=== PATIENT | male | born 1960 | race Caucasian/White ===

== ENCOUNTER 2019-03-25 00:26 | Day surgery (SDC) | payer BC, SELFPAY ==
[2019-03-23 14:37] VITALS: BMI 32.0
--- NOTE | 2019-03-24 17:24 | WPDANESEPP ---
Anes - Eval Pre Procedure Procedure: Operation Date: 03/25/19 08:00 Proposed Procedures p Screening Colonoscopy - Derek Puente MD Date/Time: 03/24/19 17:24 Pre Op Diagnosis: Neoplasm Screening Patient Data Age: 59 Gender: M Height: 1.83 m Weight: 107 kg Allergies Allergy/AdvReac Type Severity Reaction Status Date / Time oxycodone AdvReac Unknown Nausea and Verified 03/23/19 14:32 Vomiting Home Medications Medication Instructions Recorded Confirmed Type latanoprost 0.005 % eye drops 1 drop EACH EYE QPM 01/19/19 03/23/19 History testosterone 1.62 % (20.25 mg/1.25 1 packet TRANSDERM HS 01/19/19 03/23/19 History gram) transdermal gel packet pantoprazole 20 mg tablet,delayed 20 mg PO QAM #90 tablet 02/12/19 03/23/19 Rx release fluticasone propion-salmeterol 1 puff INHALATION BID 03/23/19 03/23/19 History [Wixela Inhub] Patient hx anesthesia problems: none Family hx anesthesia problems: none PMFSH Past Medical History Medical History (Updated 03/24/19 @ 17:25 by Lucy Singh CRNA) Malignant neoplasm of urinary bladder Obesity (BMI 30-39.9) Unspecified asthma, uncomplicated Vitamin D deficiency, unspecified Social History Social History Smoking status: Never smoker Second hand tobacco smoke exposure: No Alcohol intake: current Exam Day of Procedure 03/24/19 17:24
--- NOTE | 2019-03-25 07:08 | P.PNAN_ITS ---
Anes - Eval Final PreProcedure Day of Procedure 03/25/19 07:08 Patient weight: obese Heart: regular rate and rhythm Lungs: clear to auscultation Airway: Mallampati scale class II Neurological: alert and oriented Last oral intake: >/= 8 hours ASA classification: II Emergent: no Anesthetic plan: proceed Anesthesia type and monitoring: general GIVS and standard monitoring Informed Consent: The patient's anesthetic plan and its attendant risks and be nefits were discussed with the patient/family/POA. Questions were solicited and answers provided to the satisfaction of the patient/family/POA.
[2019-03-25] MEDS: LACTATED RINGERS 1,000 ML 150 ML IV CONT (07:26)
[2019-03-25 07:29] VITALS: BP 135/72; PULSE 47; RESP 18; TEMP 36.3; O2SAT 96; BMI 31.8
--- NOTE | 2019-03-25 08:06 | PM.HPGS ---
History of Present Illness History of Present Illness Consent: Risks, benefits, and alternatives have been discussed and questions answered. Patient agrees to proceed with procedure. Chief complaint: Neoplasm Screening Narrative: Jason Douglas is a 59 year old male here for screening colonoscopy, last one 10 years ago. Review of Systems Constitutional: Constitutional: Denies headache(s) and Denies weakness Eyes: Eyes: Denies blurry vision ENT: Reports Normal hearing present, Denies headache(s) and Denies neck pain Cardiovascular: Cardiovascular: Denies chest pain and Denies dyspnea Respiratory: Respiratory: Denies dyspnea Gastrointestinal: Gastrointestinal: Reports no additional gastrointestinal complaints Genitourinary: Genitourinary: Denies dysuria Musculoskeletal: Musculoskeletal: Denies neck pain Integumentary/Breasts: Skin/Breast: Denies dry skin Neurologic: Reports Normal hearing present, Denies headache(s) and Denies weakness Psychiatric: Psychiatric: Denies anxiety Endocrine: Endocrine: Denies change in body appearance Hematologic/Lymphatic: Hematologic/Lymphatic: Denies easy bleeding Allergic/Immunologic: Allergic/Immunologic: Denies urticaria PMFSH Past Medical History Medical History (Updated 03/25/19 @ 08:07 by Derek Puente MD) Colon cancer screening Malignant neoplasm of urinary bladder Obesity (BMI 30-39.9) Unspecified asthma, uncomplicated Vitamin D deficiency, unspecified Social History Social History Smoking status: Never smoker Second hand tobacco smoke exposure: No Alcohol intake: current Meds Home Medications and Allergies Home Medications Medication Instructions Recorded Confirmed Type latanoprost 0.005 % eye drops 1 drop EACH EYE QPM 01/19/19 03/23/19 History testosterone 1.62 % (20.25 mg/1.25 1 packet TRANSDERM HS 01/19/19 03/23/19 History gram) transdermal gel packet pantoprazole 20 mg tablet,delayed 20 mg PO QAM #90 tablet 02/12/19 03/23/19 Rx release fluticasone propion-salmeterol 1 puff INHALATION BID 03/23/19 03/23/19 History [Wixela Inhub] Allergies Allergy/AdvReac Type Severity Reaction Status Date / Time oxycodone AdvReac Unknown Nausea and Verified 03/25/19 07:27 Vomiting Vital Signs Vital Signs - 24 hr 03/25/19 07:29 Temperature 97.3 F L Pulse Rate 47 L Respiratory Rate 18 Blood Pressure 135/72 Pulse Oximetry 96 Exam Const: General: comfortable and no acute distress HENMT: General nose exam: Normal nares present Eyes: General: appearance normal, both eyes and all related structures Neck: Neck: no JVD Resp: Auscultation: clear to auscultation bilaterally Cardio: Rate: regular rate Rhythm: regular rhythm GI: Inspection: non-distended GI Palp: Yes Soft to palpation Skin: General skin exam: normal color Neuro: General: gait normal Speech: normal speech Extrem: General: normal to inspection Psych: Mental Status: mental status grossly normal Assessment and Plan Assessment and plan (1) Colon cancer screening: Code(s): Z12.11 - Encounter for screening for malignant neoplasm of colon Status: Acute Assessment and Plan: will proceed with colonoscopy (2) Unspecified asthma, uncomplicated: Code(s): J45.909 - Unspecified asthma, uncomplicated Status: Acute
[2019-03-25 08:37] VITALS: BP 93/63; PULSE 82; RESP 20; O2SAT 92
[2019-03-25 08:47] VITALS: BP 95/66; PULSE 71; RESP 20; O2SAT 93
[2019-03-25 08:52] VITALS: BP 110/72; PULSE 78; RESP 20; O2SAT 95
[2019-03-25 09:02] VITALS: BP 106/68; PULSE 77; RESP 20; O2SAT 95
== END 2019-03-25 09:07 | disposition home or self-care (01) ==
PROVIDERS: PCP Internal Medicine; Visit Provider Internal Medicine Gastroenterology
PROC: 0DJD8ZZ Inspection of Lower Intestinal Tract, Via Natural or Artificial Opening Endoscopic (ICD-10-PCS; CPT 45378; principal; 2019-03-25 08:00)
DX: Z12.11 Encounter for screening for malignant neoplasm of colon (principal); D12.2 Benign neoplasm of ascending colon; D12.5 Benign neoplasm of sigmoid colon; K63.5 Polyp of colon; K57.30 Diverticulosis of large intestine without perforation or abscess without bleeding; K64.8 Other hemorrhoids; E55.9 Vitamin D deficiency, unspecified; J45.909 Unspecified asthma, uncomplicated; Z85.51 Personal history of malignant neoplasm of bladder; E66.9 Obesity, unspecified; Z68.31 Body mass index [BMI] 31.0-31.9, adult
CPT/HCPCS: 45385; 88305; J2704; J7120

== ENCOUNTER 2020-03-26 09:30 | Emergency (ER) | payer BC, SELFPAY ==
--- NOTE | ~2020-03-26 | XR_ITS ---
XR wrist RT min 3V DATE: 03/26/2020 09:38 INDICATION: Lateral right wrist pain following a fall and injury last evening TECHNIQUE: 4 views COMPARISON: None FINDINGS: There is a nondisplaced linear intra-articular fracture of the distal radius. No dislocation. Mild osteoarthritic change at the first carpometacarpal joint. IMPRESSION: Nondisplaced linear intra-articular fracture distal radius Reviewed, dictated and finalized at location A. [employer]
--- NOTE | 2020-03-26 09:40 | ED.UPPEXIN ---
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 Patient states he slipped yesterday and has mild , radial wrist pain that is worse with motion, better at rest located the distal radius. No numbness, significant weakness, bleeding, deformity but there is mild edema. Patient advised regardless of x-ray report will need follow-up and splinting, and he comments that Lisa is his orthopedist and prefers durable/reusable commercial splints. Related Data Home Medications Medication Instructions Recorded Confirmed latanoprost 0.005 % eye drops 1 drop EACH EYE QPM 01/19/19 03/26/20 Allergies Allergy/AdvReac Type Severity Reaction Status Date / Time oxycodone AdvReac Unknown Nausea and Verified 03/26/20 09:39 Vomiting Review of Systems Review of Systems: Narrative: The patient has been informed that they may have pre-hypertension or Hypertension based on a BP reading in the department. I recommend that the patient call the primary care provider listed on their discharge instructions or a physician of their choice this week to arrange follow up for further evaluation of possible pre-hypertension or Hypertension General/Constitutional: Nofever Eyes: N0: Redness,discharge Ears/Nose/Throat: No: Epistaxis Gastrointestinal: No Vomiting Skin: No Lumps, eruption Neurologic: No Focal Weakness, Hematologic: Denies: Petechiae/Purpura Psychiatric: No: Suicida ideationl All Other Systems: Reviewed and Negative [facility] Past Medical History Medical History Colon cancer screening Malignant neoplasm of urinary bladder Obesity (BMI 30-39.9) Unspecified asthma, uncomplicated Vitamin D deficiency, unspecified Family History Family History Father Hypertension Family history of osteoarthritis Grandparent Family history of osteoarthritis Family history of kidney disease Sibling Family history of malignant neoplasm of brain Mother Family history of heart disease in male family member before age 55 Patient's mother is Social History Social History Smoking status: Never smoker Second hand tobacco smoke exposure: No Alcohol intake: current Exam Narrative: Exam Narrative: General Appearance: Well appearing, , Conjunctiva clear Mouth/Throat:Normal lips, Supple Respiratory: Airway patent, No respiratory distress MS-wrist: Normal strength (mostly intact, limited flexion/extension by pain), Tenderness (radially with mild decreased ROM), Scant swelling (radially), Other (no anterior drawer, no collateral laxity, Skin: Mild snuffbox tenderness-proximally, skin warm, Dry, Normal color Neurological: A&O x3, Normal affect Course Course Emergency Course: Films visualized, interpreted by radiologist, agree, ABnormal see report Vital Signs Vital signs: Vital Signs Temperature 98.1 F 03/26/20 09:44 Pulse Rate 85 03/26/20 09:44 Respiratory Rate 16 03/26/20 09:44 Blood Pressure 143/100 H 03/26/20 09:44 Pulse Oximetry 99 03/26/20 09:44 Temperature 98.1 F 03/26/20 09:44 Pulse Rate 85 03/26/20 09:44 Respiratory Rate 16 03/26/20 09:44 Blood Pressure 143/100 H 03/26/20 09:44 Pulse Oximetry 99 03/26/20 09:44 Discharge Plan Discharge Clinical Impression: Distal radius fracture, right Qualifiers: Encounter type: initial encounter Fracture type: closed Fracture morphology: other intra-articular Qualified Code(s): S52.571A - Other intraarticular fracture of lower end of right radius, initial encounter for closed fracture Patient Disposition: Home, Self
[2020-03-26 09:44] VITALS: BP 143/100; PULSE 85; RESP 16; TEMP 36.7; O2SAT 99
== END 2020-03-26 10:10 | disposition home or self-care (01) ==
PROVIDERS: Emergency Provider Emergency Medicine; PCP Internal Medicine
DX: M25.531 Pain in right wrist (principal); S52.571A Other intraarticular fracture of lower end of right radius, initial encounter for closed fracture; W00.0XXA Fall on same level due to ice and snow, initial encounter; Z85.51 Personal history of malignant neoplasm of bladder; J45.909 Unspecified asthma, uncomplicated; E66.9 Obesity, unspecified; Z68.33 Body mass index [BMI] 33.0-33.9, adult
CPT/HCPCS: 73110; 99213; A4565; G0463

== ENCOUNTER 2020-07-22 16:08 | Outpatient (CLI) | payer BC, SELFPAY ==
--- NOTE | ~2020-07-22 | XR_ITS ---
EXAMINATION: XR lumbar spine 2-3V DATE: 07/22/2020 16:26 INDICATION: Dorsalgia. TECHNIQUE: Anteroposterior and lateral views of the lumbar spine, and cone-down lateral view of the l umbosacral junction were obtained. COMPARISON: CT abdomen and pelvis dated 08/21/2017 FINDINGS: 8 degrees dextrocurvature between T11 and L4. L5 spondylolysis with bilateral pars defects better naveed reciated on prior CT and 12 mm anterolisthesis on S1. 2 mm retrolisthesis L2 on L3 and L3 on L4. Vert ebral body heights are normal. Severe disc height loss at L5-S1, moderate disc height loss at L4-L5 a nd mild disc height loss at L1-L2 and L2-L3. Moderate bilateral facet osteoarthritis at L4-L5 and L5- S1. Mild to moderate bilateral sacral iliac osteoarthritis with increased sclerosis resulting from pa rtial bridging anterior osteophytes but appreciated on prior CT. IMPRESSION: 1. L5 spondylolysis with grade 2 anterolisthesis on S1 and severe L5-S1 degenerative disc disease. 2. Mild to moderate spondylosis in the more cephalad lumbar spine. Reviewed, dictated and finalized at location A. IMPRESSION: 1. L5 spondylolysis with grade 2 anterolisthesis on S1 and severe L5-S1 degener ative disc disease. 2. Mild to moderate spondylosis in the more cephalad lumbar spine.
== END 2020-07-22 16:09 | disposition home or self-care (01) ==
PROVIDERS: PCP Internal Medicine; Visit Provider Internal Medicine
DX: M47.896 Other spondylosis, lumbar region (principal); M51.37 Other intervertebral disc degeneration, lumbosacral region
CPT/HCPCS: 72100

== ENCOUNTER 2020-08-01 11:35 | Emergency (ER) | payer BC, SELFPAY ==
[2020-08-01 11:41] VITALS: BP 179/99; PULSE 103; RESP 16; TEMP 36.2; O2SAT 99
--- NOTE | 2020-08-01 12:09 | ED.EPISTAXIS ---
HPI - Epistaxis General Chief complaint: Epistaxis Stated complaint: nose bleed Time Seen by Provider: 08/01/20 11:40 Source: patient and RN notes reviewed Mode of arrival: ambulatory Limitations: no limitations History of Present Illness HPI Narrative: Patient presents today complaining of an epistaxis episode out of from the right nostril since 1115 this morning. States he has applied pressure without hemostasis. States he does not take blood thinners, but has been taking ibuprofen consistently for the past week. States he was having a meeting at work when his nose started bleeding. Denies history of high blood pressure. Related Data Home Medications Medication Instructions Recorded Confirmed latanoprost 0.005 % eye drops 1 drop EACH EYE QPM 01/19/19 08/01/20 Allergies Allergy/AdvReac Type Severity Reaction Status Date / Time oxycodone AdvReac Unknown Nausea and Verified 08/01/20 11:38 Vomiting Review of Systems Review of Systems: Narrative: CONSTITUTIONAL: Denies body aches, fever, chills, or sweats. EYES: Denies visual changes, redness, or discharge. ENT: Denies rhinorrhea, congestion, sore throat, or otalgia.+ Epistaxis CARDIOVASCULAR: Denies chest pain, palpitations, or edema. RESPIRATORY: Denies cough or dyspnea. GASTROINTESTINAL: Denies abdominal pain, nausea, vomiting, or diarrhea. GENITOURINARY: Denies dysuria or hematuria. SKIN: Denies rash, itching, or wounds. MUSCULOSKELETAL: Denies back pain, joint pain, or myalgia. NEUROLOGIC: Denies headache, numbness, tingling, or weakness. PSYCH: Denies depression or anxiety. [facility], [facility] Past Medical History Medical History Colon cancer screening Malignant neoplasm of urinary bladder Obesity (BMI 30-39.9) Unspecified asthma, uncomplicated Vitamin D deficiency, unspecified Family History Family History Father Hypertension Family history of osteoarthritis Grandparent Family history of osteoarthritis Family history of kidney disease Sibling Family history of malignant neoplasm of brain Mother Family history of heart disease in male family member before age 55 Patient's mother is Social History Social History Smoking status: Never smoker Second hand tobacco smoke exposure: No Alcohol intake: current Comments At time of signature, I have reviewed and agree with nursing past medical, surgical, social and family history unless otherwise noted. Please see nursing chart for further information. There is no relevant family history pertinent to the presenting complaint Exam Narrative: Exam Narrative: GENERAL: Well-appearing, well-nourished, and in no acute distress. HEAD: Normocephalic, atraumatic. EYES: EOMI. No redness or drainage. Conjunctivae normal. ENT: Mucous membranes pink and moist. Left nare clear. Right nare with some blood, cleaned out gently with Qtip, but is currently not bleeding after clamp was applied for 20 minutes. Bleed appears posterior. NECK: Normal AROM. Supple. No lymphadenopathy. CHEST: No respiratory distress. EXTREMITIES: Normal range of motion. No edema. SKIN: Warm, dry, no rash. Capillary refill normal. Normal skin turgor. NEURO: No focal deficits. Alert and oriented x3. Gait steady. PSYCH: Normal affect. No signs of depression or anxiety. Course Course Emergency Course: 1203- Clamp removed and hemostasis acheived. Will leave off for 10 minutes and reevaluate. 1215- Small drops of blood restarted. 3 sprays of neosynephrine applied and clamp reapplied. 1230- Clamp removed. Will recheck in 15 mins. 1245- Hemostasis achieved. Anticipatory guidance was given. We will send patient home with nose clamp in case oozing begins again. Vital Signs Vital signs: Vital Signs Temperature 97.2 F L 08/01/20 1
[2020-08-01 12:34] VITALS: BP 154/93
== END 2020-08-01 13:02 | disposition home or self-care (01) ==
PROVIDERS: Emergency Provider Nurse Practitioner; PCP Internal Medicine
DX: R04.0 Epistaxis (principal); J45.909 Unspecified asthma, uncomplicated; Z85.51 Personal history of malignant neoplasm of bladder
CPT/HCPCS: 99212; G0463

== ENCOUNTER 2020-08-05 22:18 | Emergency (ER) | payer BC, SELFPAY ==
[2020-08-05 22:19] VITALS: BP 164/92; PULSE 107; RESP 18; TEMP 36.1; O2SAT 97
--- NOTE | 2020-08-05 22:56 | ED.EPISTAXIS ---
HPI - Epistaxis General Chief complaint: Epistaxis Stated complaint: epitaxis Time Seen by Provider: 08/05/20 22:55 History of Present Illness HPI Narrative: Nose bleed for the past 20-30 minutes. Only recent nose bleed last week. stopped spontaneously. He takes a daily aspirin. No trauma. No weakness, dizziness, SOB. Related Data Home Medications Medication Instructions Recorded Confirmed latanoprost 0.005 % eye drops 1 drop EACH EYE QPM 01/19/19 08/11/20 acetaminophen [Acetaminophen Extra 100 mg PO Q6H PRN 08/11/20 08/11/20 Strength] Allergies Allergy/AdvReac Type Severity Reaction Status Date / Time oxycodone AdvReac Unknown Nausea and Verified 08/08/20 14:09 Vomiting Review of Systems Review of Systems: All systems reviewed & are unremarkable except as noted in HPI and below PMFSH Past Medical History Medical History Colon cancer screening Malignant neoplasm of urinary bladder Obesity (BMI 30-39.9) Unspecified asthma, uncomplicated Vitamin D deficiency, unspecified Family History Family History Father Hypertension Family history of osteoarthritis Grandparent Family history of osteoarthritis Family history of kidney disease Sibling Family history of malignant neoplasm of brain Mother Family history of heart disease in male family member before age 55 Patient's mother is Social History Social History Smoking status: Never smoker Second hand tobacco smoke exposure: No Alcohol intake: current Drinks per week: 3 Substance use: never Living arrangements: with family Exam Const: General: healthy appearing, no acute distress and alert Orientation/consciousness: patient oriented x3 HENMT: Head: normal to inspection General nose exam: Epistaxis present on the right active bleeding and source not visualized Neck: Neck: normal visual inspection Resp: Effort & Inspection: normal respiratory effort Auscultation: clear to auscultation bilaterally, no rales, no rhonchi and no wheezes Cardio: Jugular venous distension: no JVD Rate: regular rate Rhythm: regular rhythm Heart sounds: no murmurs Skin: General skin exam: normal color and no pallor Neuro: General: patient oriented x3 and moves all extremities Speech: normal speech Psych: Appearance: well kempt Affect: normal affect Course Vital Signs Vital signs: Vital Signs Temperature 36.1 C L 08/05/20 22:19 Pulse Rate 107 H 08/05/20 22:19 Respiratory Rate 18 08/05/20 22:19 Blood Pressure 164/92 H 08/05/20 22:19 Pulse Oximetry 97 08/05/20 22:19 Temperature 36.1 C L 08/05/20 22:19 Pulse Rate 91 08/06/20 01:15 Respiratory Rate 16 08/06/20 01:15 Blood Pressure 150/89 H 08/06/20 01:15 Pulse Oximetry 94 08/06/20 01:15 Procedures Epistaxis Control right: Nose Prepped With: oxymetazoline Direct Inspection: unable to visualize Clots Removed by: blowing nose and manually Device Inserted: hemostatic balloon Patient Tolerated Procedure: well MDM - Epistaxis Differential Diagnosis Differential diagnosis: Likely anterior epistaxis and posterior epistaxis Medical Records Attestation: I reviewed the patient's medical records. Discharge Plan Discharge Clinical Impression: Acute anterior epistaxis Patient Disposition: Home, Self-Care Condition: Stable Instructions: Nosebleed (ED) Prescriptions: No Action latanoprost 0.005 % drops 1 drop EACH EYE QPM RF: 0 testosterone [AndroGel] 1.62 % (20.25 mg/1.25 gram) gel in packet 1 packet TRANSDERM HS Qty: 225 RF: 0 acetaminophen [Acetaminophen Extra Strength] 500 mg Tablet 100 mg PO Q6H PRN (Reason: Pain) RF: 0 pantoprazole 20 mg tablet,delayed release (DR/EC) 20 mg PO QAM Qty: 90 RF: 1 flu
--- NOTE | 2020-08-06 00:15 | PC.NURSE ---
Pt continues to bleed from right nare despite nose clamp and nasal packing placed by EDP. Pt states he can feel the blood running down his throat. EDP at bedside to place Rhino Rocket in right nare at this time.
[2020-08-06 00:16] VITALS: BP 159/98; PULSE 102; RESP 18; O2SAT 96
[2020-08-06 01:15] VITALS: BP 150/89; PULSE 91; RESP 16; O2SAT 94
== END 2020-08-06 01:15 | disposition home or self-care (01) ==
PROVIDERS: Emergency Provider Emergency Medicine; PCP Internal Medicine
DX: R04.0 Epistaxis (principal); J45.909 Unspecified asthma, uncomplicated; E55.9 Vitamin D deficiency, unspecified; E66.9 Obesity, unspecified; Z85.51 Personal history of malignant neoplasm of bladder; Z79.82 Long term (current) use of aspirin
CPT/HCPCS: 30901; 99282; A9270

== ENCOUNTER 2020-08-12 00:44 | Day surgery (SDC) | payer BC, SELFPAY ==
--- NOTE | 2020-08-11 09:00 | PM.IMHP ---
H&P: HPI History of Present Illness Date/Time: 08/11/20 09:00 Patient presents for planned surgical procedures. History of recurrent epistaxis on the right side unable to stop bleeding in clinic. Bleeding is likely from mid septal region but the septal deviation and inferior turbinate hypertrophy makes direct or endoscopic visualization exceedingly difficult. Patient reports no changes in history or medical history. Chief Complaint: Right-sided epistaxis recurrent and severe Review of Systems Constitutional: Constitutional: Denies fatigue, Denies fever(s) and Denies lethargy Eyes: Eyes: Denies blurry vision and Denies change in vision ENT: Reports as per HPI Cardiovascular: Cardiovascular: Denies chest pain Respiratory: Respiratory: Denies cough Endocrine: Endocrine: Denies fatigue Hematologic/Lymphatic: Hematologic/Lymphatic: Denies easy bleeding, Denies easy bruising and Denies lymphadenopathy Allergic/Immunologic: Allergic/Immunologic: Denies seasonal rhinorrhea PMFSH Past Medical History Medical History Colon cancer screening Malignant neoplasm of urinary bladder Obesity (BMI 30-39.9) Unspecified asthma, uncomplicated Vitamin D deficiency, unspecified Family History Family History Father Hypertension Family history of osteoarthritis Grandparent Family history of osteoarthritis Family history of kidney disease Sibling Family history of malignant neoplasm of brain Mother Family history of heart disease in male family member before age 55 Patient's mother is Social History Social History Second hand tobacco smoke exposure: No Alcohol intake: current Meds Home Medications and Allergies Home Medications Medication Instructions Recorded Confirmed Type latanoprost 0.005 % eye drops 1 drop EACH EYE QPM 01/19/19 08/08/20 History testosterone 1.62 % (20.25 mg/1.25 1 packet TRANSDERM HS #225 gm 01/19/20 08/08/20 Rx gram) transdermal gel packet pantoprazole 20 mg tablet,delayed 20 mg PO QAM #90 tablet 02/15/20 08/08/20 Rx release fluticasone 100 mcg-salmeterol 50 1 inh INHALATION BID #60 each 03/15/20 08/01/20 Rx mcg/dose blistr powdr for inhalation tramadol 50 mg PO BID PRN #15 tablet 03/26/20 08/01/20 Rx cyclobenzaprine 10 mg tablet 10 mg PO .HS PRN #30 tablet 08/02/20 08/08/20 Rx Allergies Allergy/AdvReac Type Severity Reaction Status Date / Time oxycodone AdvReac Unknown Nausea and Verified 08/08/20 14:09 Vomiting Exam Const: General: cooperative, healthy appearing, comfortable, well developed and alert HENMT: Head: normal to inspection, normocephalic and atraumatic Ears: hearing grossly normal bilaterally, external ears normal, TM's normal bilaterally and EAC's normal General nose exam: Normal external nose present, Normal nares present, nasal polyps, mucous membranes and turbinates abnormal, abnormal septum and Other nasal findings present ( left normal right packed) Face and sinus: normal facial exam Mouth: Yes Normal oral and palatal mucosa present, Yes lip normal, Yes tongue normal, Yes oropharynx normal and Yes moist mucous membranes Teeth and gingiva: dentition normal and gingiva normal Throat: posterior oropharynx normal, tonsils normal and uvula midline Eyes: General: appearance normal, both eyes and all related structures Periorbital: periorbital findings normal Eyelids: eyelids normal Conjunctivae: conjunctivae normal Sclera: sclerae normal Neck: Neck: normal visual inspection, full ROM and no lymphadenopathy Thyroid: thyroid normal Lymphatic: no lymphadenopathy noted Resp: Effort & Inspection: normal respiratory effort and able to speak in complete sentences Cardio: Jugular venous distension: no JVD Neuro: Cranial nerves: Yes CN's II-XII intact edwin
[2020-08-11 12:30] VITALS: BMI 33.5
[2020-08-12] VITALS (14 sets, daily range): BP systolic 132–163; BP diastolic 84–98; PULSE 71–96; RESP 12–20; TEMP 36.6–36.8; O2SAT 93–100
--- NOTE | 2020-08-12 07:04 | WPDHPUPDATE1 ---
History and Physical Update Update Date/Time: 08/12/20 07:04 History and Physical has been reviewed, including an updated exam of the patient. There are NO changes in the patient's condition. Risks, benefits, and alternatives have been discussed and questions answered. Patient agrees to proceed with procedure.
--- NOTE | 2020-08-12 11:42 | WPDANESEPPF ---
Anes - Initial Pre Proc Eval Procedure: Operation Date: 08/12/20 14:00 Proposed Procedures p Right Endoscopic Maxillary Antrostomy - Erick Sethi MD s Right Nasal Cautery Of Nose - Erick Sethi MD Date/Time: 08/12/20 11:42 Surgeon: Erick Sethi MD Pre Op Diagnosis: epistaxis Patient Data Age: 60 Gender: M Height: 1.83 m Weight: 108.2 kg Last Vital Signs Temp 36.6 C 08/12/20 11:10 Pulse 96 08/12/20 11:10 Resp 20 08/12/20 11:10 BP 163/92 H 08/12/20 11:10 Pulse Ox 97 08/12/20 11:10 Allergies Allergy/AdvReac Type Severity Reaction Status Date / Time oxycodone AdvReac Mild Nausea and Verified 08/12/20 11:11 Vomiting Home Medications Medication Instructions Recorded Confirmed Type latanoprost 0.005 % eye drops 1 drop EACH EYE QPM 01/19/19 08/12/20 History testosterone 1.62 % (20.25 mg/1.25 1 packet TRANSDERM HS #225 gm 01/19/20 08/12/20 Rx gram) transdermal gel packet pantoprazole 20 mg tablet,delayed 20 mg PO QAM #90 tablet 02/15/20 08/12/20 Rx release fluticasone 100 mcg-salmeterol 50 1 inh INHALATION BID #60 each 03/15/20 08/12/20 Rx mcg/dose blistr powdr for inhalation cyclobenzaprine 10 mg tablet 10 mg PO .HS PRN #30 tablet 08/02/20 08/12/20 Rx acetaminophen [Acetaminophen Extra 100 mg PO Q6H PRN 08/11/20 08/12/20 History Strength] Patient hx anesthesia problems: none Family hx anesthesia problems: none PMFSH Past Medical History Medical History Colon cancer screening Gastro-esophageal reflux disease without esophagitis Malignant neoplasm of urinary bladder Obesity (BMI 30-39.9) Unspecified asthma, uncomplicated Vitamin D deficiency, unspecified Family History Family History Father Hypertension Family history of osteoarthritis Grandparent Family history of osteoarthritis Family history of kidney disease Sibling Family history of malignant neoplasm of brain Mother Family history of heart disease in male family member before age 55 Patient's mother is Social History Social History Smoking status: Never smoker Second hand tobacco smoke exposure: No Alcohol intake: current Drinks per week: 3 Substance use: never Living arrangements: with family Anes - Evjulieta Final PreProcedure Day of Procedure 08/12/20 11:42 Patient weight: obese Heart: regular rate and rhythm Lungs: clear to auscultation Airway: Mallampati scale class II Neurological: alert and oriented Last oral intake: >/= 8 hours ASA classification: III Emergent: no Anesthetic plan: proceed Anesthesia type and monitoring: general ETT and standard monitoring Informed Consent: The patient's anesthetic plan and its attendant risks and benefits were discussed with the patient/family/POA. Questions were solicited and answers provided to the satisfaction of the patient/family/POA.
[2020-08-12] MEDS: LACTATED RINGERS 1,000 ML 30 ML IV CONT ×3 (11:55→15:02)
[2020-08-12] MEDS: ceFAZolin 2 GM/D5W 50 ML 2 GM/50 ML BAG IVPB (12:05)
[2020-08-12] MEDS: OXYMETAZOLINE HCL 0.05% NAS 15 ML BTL (*BKC) 1 SPRAY NASAL (12:20)
--- NOTE | 2020-08-12 14:15 | W.PM.PROC2 ---
Procedure Note - Detailed Date of Procedure 08/12/20 Pre-op Diagnosis epistaxis Nasal polyps Post-op Diagnosis same Procedure Performed 1. Biopsy of right-sided nasal mass 2. Right-sided endoscopic maxillary antrostomy 3. Right-sided endoscopic ligation of sphenopalatine artery Surgeon Erick Sethi MD Anesthesia general Indications epistaxis right nasal mass Findings right polypoid mass involving the middle turbinate versus polyps, right septal deviation bilateral inferior turbinate hypertrophy epistaxis Description of Procedure patient was correctly identified and consent was verified in the preoperative holding area. The patient was then brought to the operating room and a time-out was performed. General anesthesia was induced and endotracheal tube was secured the patient's airway and taped to the left lower lip. Afrin-soaked pledgets were not placed. The patient was then prepped and draped for the aforementioned procedures. The packing was removed from the nasal passage. It was a Merocel. Under endoscopic guidance the bilateral nasal passages reviewed there is inferior turbinate hypertrophy right-sided septal deviation and blood emanating from the right nasal passage from what appeared to be a multiple regions which could represent previous trauma. Of note there was a right-sided nasal mass involving the middle turbinate 1st polypoid changes on the middle turbinate. This was biopsied and sent for pathologic analysis. Double ball tip probe was then utilized to fracture the uncinate and backbiter was utilized to complete the uncinectomy on right. Straight through cut was utilized to access the posterior lamella back wall of the maxillary sinus. Suction Bovie was then utilized to dissect until as sphenopalatine artery was located this was cauterized at a setting of 20 and was completely transected and bleeding. Given the previous trauma to the septum and inferior turbinate the decision made to place Brandon splints the right had the airway the left did not these were placed bilaterally and sutured anteriorly using a 3 0 nylon suture. Hemostasis was adequate. Care the patient was turned over to Anesthesiology. Blood loss 10 cc. There were no complications. Implants Brandon splints Estimated Blood Loss 10 Drains No Packing No Pathology yes Complications No immediate complications Condition stable Disposition PACU
[2020-08-12] MEDS: fentaNYL CITRATE INJ (*CRX) 100 MCG/2 ML VIAL 25 MCG IV PUSH ×8 (14:18→15:10)
--- NOTE | 2020-08-12 16:20 | SUR.PHASEII ---
Dr. Sethi notified of patient allergy to oxycodone. states that he will electronically submit different prescription from home.
== END 2020-08-12 16:36 | disposition home or self-care (01) ==
PROVIDERS: PCP Internal Medicine; Visit Provider Otolaryngology
PROC: (CPT 61782; principal; 2020-08-12 14:00)
PROC: (CPT 61782; 2020-08-12 14:00)
DX: R04.0 Epistaxis (principal); J33.8 Other polyp of sinus; J34.3 Hypertrophy of nasal turbinates; K21.9 Gastro-esophageal reflux disease without esophagitis; E55.9 Vitamin D deficiency, unspecified; Z85.51 Personal history of malignant neoplasm of bladder; J45.909 Unspecified asthma, uncomplicated; E66.9 Obesity, unspecified; Z68.32 Body mass index [BMI] 32.0-32.9, adult
CPT/HCPCS: 61782; 31256; 31241; 88304; 88305; A9270; J0330; J0690; J1100; J2250; J2405; J2704; J3010; J7120

== ENCOUNTER 2020-09-11 10:36 | Outpatient (CLI) | payer BC, SELFPAY ==
--- NOTE | ~2020-09-11 | MR_ITS ---
EXAMINATION: MR lumbar spine wo con DATE: 09/11/2020 11:32 INDICATION: Dorsalgia, unspecified. TECHNIQUE: Magnetic resonance imaging (MRI) of the lumbar spine was performed without intravenous con trast. Sequences included sagittal T2-weighted FSE, sagittal T2-weighted FS FSE, sagittal T1-weighted FSE, and axial T2-weighted FSE. COMPARISON: Lumbar spine radiograph 07/22/2020 FINDINGS: There is 3 degrees dextrocurvature of lumbar spine. There are chronic bilateral L5 pars def ects. There is 13 mm anterolisthesis of L5 on S1. There is chronic 1/5 loss of height of L5 vertebral body posteriorly. There are chronic compression fractures of T11, T12, L1, L2, and L3. There is mild ly decreased disc height at L2-L3 and L4-L5 and severely decreased disc height at L5-S1. The followin g disc levels are specifically discussed: L1-L2: The disc is bulging. There is mild bilateral facet joint osteoarthritis. There is mild bilater al neural foraminal stenosis. There is mild central canal stenosis. L2-L3: The disc is bulging and has an annular fissure. There is severe right and moderate left facet joint osteoarthritis. There is mild right and moderate left neural foraminal stenosis. There is mild central canal stenosis. L3-L4: The disc is bulging. There is moderate right and severe left facet joint osteoarthritis. There is moderate bilateral neural foraminal stenosis. There is mild central canal stenosis. L4-L5: The disc is bulging. There is severe bilateral facet joint osteoarthritis. There is moderate b ilateral neural foraminal stenosis. There is no central canal stenosis. L5-S1: The disc does not extend beyond the endplate margin. There is severe bilateral facet joint ost eoarthritis. There is moderate bilateral neural foraminal stenosis. There is no central canal stenosi s. IMPRESSION: 1. Severe lower lumbar spondylosis. 2. Chronic bilateral L5 pars defects with grade 2 anterolisthesis of L5 on S1. Reviewed, dictated and finalized at location A.
== END 2020-09-11 10:37 | disposition home or self-care (01) ==
PROVIDERS: PCP Internal Medicine; Visit Provider Internal Medicine
DX: M54.9 Dorsalgia, unspecified (principal); M47.816 Spondylosis without myelopathy or radiculopathy, lumbar region; M43.17 Spondylolisthesis, lumbosacral region
CPT/HCPCS: 72148

== ENCOUNTER 2022-02-02 11:41 | Emergency (ER) | payer BC, SELFPAY ==
[2022-02-02] VITALS (13 sets, daily range): BP systolic 112–135; BP diastolic 66–80; PULSE 80–98; RESP 16–29; TEMP 35.8–36.9; O2SAT 93–99
--- NOTE | ~2022-02-02 | XR_ITS ---
Clinical Indication: Shortness of breath, asthma PA and lateral views of the chest: Comparison: None Findings: There is probable discoid left basilar atelectasis. Right lung clear. Cardiomediastinal si lhouette is within normal limits. Moderate compression fracture what is probably T10 noted. Impression: Probable discoid left basilar atelectasis or scarring, otherwise clear lungs. Moderate compression fracture of what is probably T10, age indeterminate. Reviewed, dictated and finalized at location . [facility] Impression: Probable discoid left basilar atelectasis or scarring, otherwise clear lungs. Moderate compression fracture of what is probably T10, age indeterminate.
--- NOTE | 2022-02-02 12:05 | ED.GENADULT ---
HPI - General Adult General Chief complaint: Shortness of Breath/Dyspnea Stated complaint: SOB Time Seen by Provider: 02/02/22 12:00 Source: RN notes reviewed History of Present Illness HPI narrative: Patient presents emergency department from home for cough. He states since began 2 days ago. States he had a cough this been nonproductive. He notes mild feeling of shortness of breath with the cough states he does have a history of asthma and has been having some mild wheezing. He denies any fevers or chills rhinorrhea sore throat abdominal pain nausea or vomiting. Denies any chest pain. Related Data Home Medications Medication Instructions Recorded Confirmed latanoprost 0.005 % eye drops 1 drop ophthalmic (eye) QPM 01/19/19 09/12/20 acetaminophen 500 mg tablet 100 mg PO Q6H PRN Pain 08/11/20 09/12/20 (Acetaminophen Extra Strength) Allergies Allergy/AdvReac Type Severity Reaction Status Date / Time oxycodone AdvReac Mild Nausea and Verified 09/12/20 07:59 Vomiting Review of Systems Review of Systems: Gen.: Denies fevers or chills ENT: Denies congestion Respiratory: See HPI CV: Denies chest pain or palpitations GI: Denies abdominal pain nausea, emesis or diarrhea Musculoskeletal: Denies back pain or muscle pain Neuro: Denies numbness, tingling, weakness or focal weakness Skin: Denies rash Except as documented, all other systems reviewed and negative [facility] Past Medical History Medical History Colon cancer screening Gastro-esophageal reflux disease without esophagitis Malignant neoplasm of urinary bladder Obesity (BMI 30-39.9) Unspecified asthma, uncomplicated Vitamin D deficiency, unspecified Family History Family History Father Hypertension Family history of osteoarthritis Grandparent Family history of osteoarthritis Family history of kidney disease Sibling Family history of malignant neoplasm of brain Mother Family history of heart disease in male family member before age 55 Patient's mother is Social History Social History Smoking status: Never smoker Second hand tobacco smoke exposure: No Alcohol intake: current Drinks per week: 3 Substance use: never Exam Narrative: APPEARANCE: No acute distress, nontoxic, resting in bed EYES: EOMI HEENT: Normocephalic, atraumatic, OMM RESPIRATORY: No respiratory distress mild wheezing upper lung shukla, no rhonchi or rales CARDIOVASCULAR: Regular rate and rhythm without murmurs rubs or gallops. ABDOMINAL: Soft, nontender, nondistended, no rebound or guarding MUSCULOSKELETAl: Moves all extremities. No clubbing, cyanosis or edema. NEURO: Awake and alert. Following commands, speech normal, no focal deficits SKIN:: Warm, dry. No rashes lesions or abrasions PSYCHIATRIC: Normal affect/mood, Course Course Emergency Course: Following breathing treatment lungs clear to station bilaterally. Patient states that he does have an inhaler at home Discussed with patient results of workup and diagnosis. Discussed need for follow-up with primary care, proper use of medication, and reasons to return to the emergency department. Patient understands and agrees to current treatment plan discussed with patient compression fracture states he does have a known history of compression fractures Vital Signs Vital signs: Vital Signs Temperature 96.5 F L 02/02/22 11:42 Pulse Rate 92 02/02/22 11:42 Respiratory Rate 20 02/02/22 11:42 Blood Pressure 135/77 02/02/22 11:42 Pulse Oximetry 97 02/02/22 11:42 Oxygen Delivery Room Air 02/02/22 11:42 Temperature 96.5 F L 02/02/22 11:42 Pulse Rate 98 02/02/22 12:51 Respiratory Rate 20 02/02/22 12:51 Blood Pressure 135/77 02/02/22 11:42 Pulse Oximetry 94 02/02/22 12:37 Oxygen Delivery Room Air 02/02
[2022-02-02] MEDS: ALBUTEROL SULFATE NEB 2.5 MG/3 ML INH 5 MG INHALATION (12:28)
[2022-02-02] MEDS: IPRATROPIUM BR 0.02% INH SOLN 0.5 MG/2.5 ML VIAL INHALATION (12:28)
[2022-02-02 12:52] LABS: Influenza A QL RT-PCR Positive (Negative); Influenza B QL RT-PCR Negative (Negative); SARS-CoV-2 RNA PCR Negative
== END 2022-02-02 13:40 | disposition home or self-care (01) ==
PROVIDERS: Emergency Provider Emergency Medicine
DX: J10.1 Influenza due to other identified influenza virus with other respiratory manifestations (principal); Z20.822 Contact with and (suspected) exposure to COVID-19; J45.909 Unspecified asthma, uncomplicated; K21.9 Gastro-esophageal reflux disease without esophagitis; E55.9 Vitamin D deficiency, unspecified; E66.9 Obesity, unspecified; Z68.30 Body mass index [BMI] 30.0-30.9, adult; Z85.51 Personal history of malignant neoplasm of bladder
CPT/HCPCS: 71046; 87636; 94640; 99283

== ENCOUNTER 2022-07-11 08:00 | Outpatient (RCR) | payer BC, SELFPAY ==
--- NOTE | 2022-04-17 10:00 | PTOPEVAL1 ---
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 He states he has multiple myeloma that is currently in remission. He states he has neuropathy from his waist down. He states his legs feel dull and heavy all the time. Pt state his goal would be able to walk a mile. Reported Pain Level Pain Score 0: Self Report Assessment PT Clinical Summary Jason Chappell presents to therapy today for his initial evaluation with a diagnosis of neuropathy following chemo and radiation therapies. Today he demonstrates decreased sensation, strength, and balance limiting his functional mobility. His scored on the FONTAINE and 5xSTS place him at an increased risk for falls. Skilled physical therapy are indicated to address the deficits noted above, to improve mobility, to improve endurance, and to progress towards a return to baseline function. Plan of Care Interventions Gait Training,Manual Therapy,Neuro Re-education, Patient/Caregiver Educati,Therapeutic Activities, Therapeutic Exercise PT Services Indicated Yes Treatment Frequency and 2x/wk for 4 wks Duration These treatments will address the objective and functional deficits as defined above. The patient will be advanced safely and appropriately in order for the patient to progress towards his/her prior level of function. Additional exercises will be introduced and as well as a comprehensive home exercise program upon discharge, if needed, ?to ensure carryover of functional gains achieved in the clinic. This treatment plan has been reviewed and agreement upon by the patient.
--- NOTE | 2022-05-15 08:59 | PTOPPROG ---
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 He states his back pain is still a big limiting factor for him. He states stretches he has been given help some. He states he feels like his neuropathy has slowly worsened in the last month or two. Assessment PT Clinical Summary Jason presents to therapy today for his progress report following 8 visits of skilled therapy to treat his neuropathy secondary to chemo and radiation treatments. Today he demonstrates progressing LE strength but still decreased when considering his prior level of function. He improved his FONTAINE from 44/56 to 49/56 and sit to stand from 20s to 16s, but still remains at an increased risk for falls per assessments. He continues to reports decreased sensation throughout his entire BLEs, but worse in his feet. Continuation of skilled therapy services are indicated to continue improving strength, balance, and functional mobility, and to return to baseline function. Plan of Care Interventions Electrical Stimulation,Gait Training,Manual Therapy,Neuro Re-education,Patient/Caregiver Educati,Therapeutic Activities,Therapeutic Exercise PT Services Indicated Yes Treatment Frequency and 2x/wk for 4 wks Duration These treatments will address the objective and functional deficits as defined above. The patient will be advanced safely and appropriately in order for the patient to progress towards his/her prior level of function. Additional exercises will be introduced and as well as a comprehensive home exercise program upon discharge, if needed, ?to ensure carryover of functional gains achieved in the clinic. This treatment plan has been reviewed and agreement upon by the patient.
--- NOTE | 2022-06-08 08:31 | PCPTNOTE ---
Patient called & cancelled scheduled appointment this date, he did not have a reason.
--- NOTE | 2022-06-12 08:51 | PTOPPROG ---
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 He states he feels like his legs are getting stronger but it feels like his back is getting stiffer. He feels like his balance has improved as well. Pt reports 50% improvement in overall symptoms. He states he feels like his mobility is limited by his back pain. Assessment PT Clinical Summary Jason presents to therapy today for his progress report following 12 visits of skilled therapy to treat his neuropathy. Today he reports progress limited by his persistent back pain, pt encouraged to follow up with referring provider regarding muscle stim to treat muscle tightness. Today he demonstrates improved LE strength but still decreased from expected grossly 4-/5. He has improved her FONTAINE score to a 51/56, his 5xSTS time and 2 min walk distances decreased slightly compared to his last visit. Continuation of skilled physical therapy services are indicated to continue progressing strength, balance, pain, and functional mobility. Plan of Care Interventions Electrical Stimulation,Gait Training,Manual Therapy,Neuro Re-education,Patient/Caregiver Educati,Therapeutic Activities,Therapeutic Exercise PT Services Indicated Yes Treatment Frequency and 1x/wk for 4 wks Duration These treatments will address the objective and functional deficits as defined above. The patient will be advanced safely and appropriately in order for the patient to progress towards his/her prior level of function. Additional exercises will be introduced and as well as a comprehensive home exercise program upon discharge, if needed, ?to ensure carryover of functional gains achieved in the clinic. This treatment plan has been reviewed and agreement upon by the patient.
--- NOTE | 2022-07-11 08:36 | PTOPDC ---
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 Pt reports 50% improvement in his overall symptoms. Pt reports slow but positive improvements using EMS to treat his edwin neuropathy. Reported Pain Level Pain Score 3: Self Report Assessment PT Clinical Summary Jason presents to therapy today for his progress report following 16 visits of skilled therapy to treat his neuropathy. Today he reports progress limited by his persistent back pain, pt encouraged to follow up with referring provider regarding muscle stim to treat muscle tightness, was given a handout with instructions following clearance from his referring provider. Pt improved his edwin hip strength through manual muscle testing, he demonstrates minimal improvements with the 5xSTS and 2 min walk test compared to his last assessment. He did improved his FONTAINE score from 51 /56 to 54/56 compared to last assessment. Pt reports feeling confident to continue progressing his balance and strength exercises on his own. He will be discharged from skilled therapy services at this time with instructions to continue his HEP and community exercise programs upon discharge. Plan of Care PT Services Indicated No
== END 2022-07-11 12:55 | disposition home or self-care (01) ==
LOC: ANHGOSHPT 08:00
DX: G62.9 Polyneuropathy, unspecified (principal)
CPT/HCPCS: 97014; 97110; 97112; 97162; 97530; G0283

== ENCOUNTER 2024-01-21 08:00 | Outpatient (RCR) | payer OTHER, SELFPAY ==
--- NOTE | 2023-10-29 10:22 | OPREHPOC ---
Outpatient Therapy Plan of Care This is a Multidisciplinary Plan of Care that may contain components documented by all disciplines (PT, OT, and ST.) PT Problem 1 PT Problem #1 Knowledge Deficit PT Goal 1 Goal / Goal Update Pt to be IND with issued HEP Target Visit 6 PT Problem 2 PT Problem #2 Impaired Gait PT Goal 1 Goal / Goal Update Pt to ambulate for 2 mins without his LEs crossing midline Target Visit 6 PT Goal 2 Goal / Goal Update Pt to improve his 2 min walk distance from 400ft to 450ft. Target Visit 8 PT Problem 3 PT Problem #3 Impaired Balance PT Goal 1 Goal / Goal Update Pt to improve his DGI score from 16/24 to 20/24. Target Visit 8 PT Problem 4 PT Problem #4 Impaired Strength PT Goal 1 Goal / Goal Update Pt to improve 5xSTS time from 20s to 15s to minimize fall risk. Target Visit 6 PT Goal 2 Goal / Goal Update Pt to demonstrate gross ankle strength of 4/5 to improve foot clearance during ambulation. Target Visit 6
--- NOTE | 2023-10-29 10:23 | PTOPEVAL1 ---
Assessment and note entered by Gloria Anderson, PT, DPT Evaluation Information Assessment Status Evaluation Diagnosis chemo inducted neuropathy ICD-10 Condition Codes (PT) Pain in low back M54.50,Repeated falls R29.6, Difficulty Walking R26.2,R26.9,Weakness R53.1 Subjective Information Pt is currently in 1x/month chemotherapy treatments. He has chemo induced neuropathy. He reports 1 fall in the last 6 months, but no other falls. He states he is most unsteady in the morning but has at least some degree of instability all day, during all activities. Pt reports worsening numbness now from his low back down the entirety of both of his legs. He reports low back numbness and stiffness that causes an ache a majority of the time. He is still doing his balance exercises, increased lumbar mobility is his primary goal. Reported Pain Level Pain Score 3: Self Report Assessment PT Clinical Summary Pt presents to therapy today for his initial evaluation with diagnosis of chemo based neuropathy, he also complains of low back stiffness. Today he demonstrates decreased hip rotation ROM and a minor decreased in BLE strength , worse in his ankles. During ambulation he demonstrates a narrow PRISCA with a scissoring pattern, decreased foot clearance and requires a downward gaze. Upon balance assessment pt demonstrates deficits when his visual input is decreased, he scored a 16/24 on the dynamic gait index. Skilled therapy services are indicated to address the deficits noted above, to improve functional mobility, and to minimize fall risk. Plan of Care Interventions Electrical Stimulation,Gait Training,Hot Pack/Cold Pack,Manual Therapy,Neuro Re-education,Patient/ Caregiver Educati,Therapeutic Activities, Therapeutic Exercise PT Services Indicated Yes Treatment Frequency and 1x/wk for 6 visits Duration These treatments will address the objective and functional deficits as defined above. The patient will be advanced safely and appropriately in order for the patient to progress towards his/her prior level of function. Additional exercises will be introduced and as well as a comprehensive home exercise program upon discharge, if needed, ?to ensure carryover of functional gains achieved in the clinic. This treatment plan has been reviewed and agreement upon by the patient.
--- NOTE | 2023-12-17 11:54 | PTOPPROG ---
Assessment and note entered by Gloria Anderson, PT, DPT Evaluation Information Assessment Status progress Diagnosis chemo inducted neuropathy ICD-10 Condition Codes (PT) Pain in low back M54.50,Repeated falls R29.6, Difficulty Walking R26.2,R26.9,Weakness R53.1 Subjective Information Pt states his balance is getting better .He feels more stable when he is walking and he is able to get up from the ground without assistance. His back has improved a little bit as well but is still his most limiting factor. Assessment PT Clinical Summary Pt presents to therapy today following 6 visits of skilled therapy to treat his diagnosis of chemo based neuropathy, he also complains of low back stiffness. Today he continue to demonstrates mild hip and ankle weakness which is negatively affecting his gait speed and pattern. During ambulation he demonstrates a narrow PRISCA, decreased foot clearance and requires a downward gaze. His balance and fall risk scores have improved. He continues to report limiting back pain, continuation of skilled therapy services are indicated to focus on lumbar mobility, address the deficits noted above, and to improve functional mobility. Plan of Care Interventions Electrical Stimulation,Gait Training,Hot Pack/Cold Pack,Manual Therapy,Neuro Re-education,Patient/ Caregiver Educati,Therapeutic Activities, Therapeutic Exercise PT Services Indicated Yes Treatment Frequency and 1x/wk for 6 visits Duration These treatments will address the objective and functional deficits as defined above. The patient will be advanced safely and appropriately in order for the patient to progress towards his/her prior level of function. Additional exercises will be introduced and as well as a comprehensive home exercise program upon discharge, if needed, ?to ensure carryover of functional gains achieved in the clinic. This treatment plan has been reviewed and agreement upon by the patient.
--- NOTE | 2024-01-28 09:02 | PCPTNOTE ---
This treatment is being continued on visit number [id number]. Please see documentation on both accounts to view progress. Completed interventions, outcomes, and problems have been marked as Inactive to facilitate the copying of the Care plan routine for recurring accounts.
== END 2024-01-27 23:59 | disposition home or self-care (01) ==
LOC: ANHGOSHPT 08:00
DX: G62.0 Drug-induced polyneuropathy (principal); T45.1X5A Adverse effect of antineoplastic and immunosuppressive drugs, initial encounter
CPT/HCPCS: 97014; 97110; 97112; 97161; 97530; 97750; G0283

== ENCOUNTER 2024-01-28 08:02 | Outpatient (RCR) | payer OTHER, SELFPAY ==
--- NOTE | 2024-01-28 08:57 | PTOPDC ---
Assessment and note entered by Gloria Anderson, PT, DPT Evaluation Information Assessment Status Discharge Diagnosis low back pain ICD-10 Condition Codes (PT) Pain in low back M54.50,Repeated falls R29.6, Difficulty Walking R26.2,Abnormalities of gait and mobility R26.9,Weakness R53.1 Subjective Information Pt states his back is getting a little better as far as pain level and level of stiffness, but still feels stiff most of the time. His ability to sit and stand for an extended period of time has improved but is still limited from his baseline. Pt reports ~50% return to prior level of function. Reported Pain Level Pain Score 2: Self Report Pain Score 2: Self Report Assessment PT Clinical Summary Pt has completed 11 visits of skilled therapy to treat his low back pain. Today he demonstrates improved lumbar mobility, and pain reports compared to when he started therapy. Pt has made good progress towards his therapy goals and would like to continue his HEP IND at this time. He will be discharged at this time. Plan of Care PT Services Indicated No
--- NOTE | 2024-01-28 08:57 | OPREHPOC ---
Outpatient Therapy Plan of Care This is a Multidisciplinary Plan of Care that may contain components documented by all disciplines (PT, OT, and ST.) PT Problem 1 PT Problem #1 Knowledge Deficit PT Goal 1 Goal / Goal Update Pt to be IND with issued HEP 12/17/23: met Target Visit 6 Progress Met PT Problem 2 PT Problem #2 Impaired Gait PT Goal 1 Goal / Goal Update Pt to ambulate for 2 mins without his LEs crossing midline 12/17/23: met Target Visit 6 Progress Met PT Goal 2 Goal / Goal Update Pt to improve his 2 min walk distance from 400ft to 450ft. 12/17/23: met, 460ft Target Visit 8 Progress Met PT Problem 3 PT Problem #3 Impaired Balance PT Goal 1 Goal / Goal Update Pt to improve his DGI score from 16 to . 12/17/23: met Target Visit 8 Progress Met PT Problem 4 PT Problem #4 Impaired Strength PT Goal 1 Goal / Goal Update Pt to improve 5xSTS time from 20s to 15s to minimize fall risk. 12/17/23: progressing Target Visit 6 PT Goal 2 Goal / Goal Update Pt to demonstrate gross ankle strength of 4/5 to improve foot clearance during ambulation. Target Visit 6 PT Problem 5 PT Problem #5 Pain PT Goal 1 Goal / Goal Update Pt to report being able to stand for 30 mins without an increase in back pain 12/17/23: added goal 01/28/24: progressing, 5-10 mins
--- NOTE | 2024-01-28 09:01 | PCPTNOTE ---
The treatment documented on this account is a continuation of the treatment documented on visit number [id number]. Please see documentation on both accounts to view progress. The Plan of Care has been transitioned and updated within the new V#. I have addressed and agree with the discipline specific Problems, Interventions, and Goals for the current certification period. Completed interventions, outcomes, and problems have been marked as Inactive to facilitate the copying of the Care plan routine for recurring accounts.
== END 2024-01-28 12:46 | disposition home or self-care (01) ==
LOC: ANHGOSHPT 08:02
DX: G62.0 Drug-induced polyneuropathy (principal); T45.1X5A Adverse effect of antineoplastic and immunosuppressive drugs, initial encounter
CPT/HCPCS: 97110; 97530

== ENCOUNTER 2024-08-20 01:18 | Day surgery (SDC) | payer MEDICARE, SELFPAY ==
[2024-08-07 15:05] VITALS: BMI 34.2
--- NOTE | 2024-08-17 13:39 | PC.NURSE ---
Spoke with patient regarding medication Eliquis. Patient verbalizes understanding that the last dose is to be taken on 08/17/24 and the Endoscopist will instruct them when to restart after the procedure.
--- OUTSIDE RECORDS SUMMARY | 2024-08-20 01:24 | XMS_ITS ---
Author Organization [facility] [address] Address [address] [place] [address] Care Team Providers Care Hotel Concierge Name Role Phone Judson Damon MD Unavailable Nasim Dunn MD Unavailable [phone] Abel Estrella MD Unavailable [phone] Flora Arriaga MD Unavailable Derek Rose MD Unavailable + [facility] Primary [facility] Pr ovider Active Problems Patient Care Coordination No te Formatting of this note is d ifferent from the original. BMT Inpatient Care CoordinationMM Overview Diagnosis MM Floor [address] to ICU 03/06 Treatment Plan Clinical Trial Reason for Admission Melph Auto\ ICU with afib & unknown source sepsis Transplant/IEC Planning BMT/IEC Plan Melph + upro auto HLA typing/IDMs Insurance Approvals/Issues Discharge Planning Anticipated Discharge Date Patient Education Completed Pre txp ed done Recovery Book given Discharge ed done with pt and his Issue to be Resolved Before Discharge Discharge Disposition Home Requests Sent to Case Management and/or Medical Assistants Post-Discharge Follow-Up Living Situation/Distance from [facility] Rishabh Barrno local Caregiver Lab/Transfusion Frequency Phone: Fax: Venous Access & Care tunneled central venous catheter Local Oncologist Contact PCP listed Phone: Fax: Post-Discharge Office Visit (H30) SOMMER Req 2/11 in [place] Miscellaneous Notes: Patient will need chest CT f/u after transplant Problem Noted Date Diagnosed Date Chemotherapy-induced peripheral neuropathy 06/24 History of palpitations 05/21/2024 Brain fog 05/21/2024 Palliative care encounter 04/07/2024 Other chronic pain 02/25/2024 Adjustment disorder with depressed mood 02/24/19 Other thrombophilia 12/12/2023 Chemotherapy-induced neuropathy 10/04/2023 Hypogammaglobulinemia 03/01/2023 Hypertriglyceridemia 01/29/2023 Class 2 obesity due to exces s calories without serious comorbidity with body mass index (BMI) of 37.0 to 37.9 in adult 01/29/2023 Assessment & Plan (01/30/2024 9:13 AM RUBBER TRIMMER): BMI Follow-up includes: nutrition counseling, exercise counseling, and education provided. Assessment & Plan (07/31/2023 8:42 AM CDT): BMI Follow-up includes: nutrition counseling, exercise counseling, education provided, and will consider Wegovy or Zepbound if covered . Assessment & Plan (02/02/2023 2:49 PM RUBBER TRIMMER): BMI Follow-up includes: nutrition counseling, exercise counseling, and education provided. Multiple myeloma not having achieved remission 0 05/14/2022 Multiple myeloma in remission 05/11/2022 Mood disorder in full remission 12/02/2021 Assessment & Plan (12/02/2021 12:06 PM CDT): Patient insists he had no problem with mood disorder prior to chemo, and none since Prior to coming here, he has diagnosis of depression We will taper down mirtazapine, and observe; if he worsens we will look at one of the newer antidepressants Weight is fine NB- he intimated his chemotherapy was finished; oncology has him on Zometa. Encounter to establish care with new doctor 11/11 Assessment & Plan (11/21/2021 2:19 PM CDT): A(n) initial visit post-hospital discharge has been performed today. Jason Douglas is not up to date on screening tests. He is in need of Prostate screening, hepatitis C screening and Colon cancer screening. He is not up to date on needed preventative vaccinations; He is in need of Influenza. Low testosterone 06/05/2021 Partial small bowel obstruction 03/09/2021 Assessment & Plan (03/10/2021 10:55 AM RUBBER TRIMMER): Unclear etiology. Had been having diarrhea that has since stopped. -03/[address] with partial SBO -stopped imodium -diarrhea again 03/09 overnight -abdominal pain improved -resume scheduled and PRN morphine at 1/2 dose A-fib 03/06/2021 Assessment & Plan (03/10/2021 10:39 AM RUBBER TRIMMER): New onset Afib on 03/06 with rates 130-140s. S/p Amio bolus and gtt finished 03/06. back into Afib with RVR on 03/07 AM -> s/p Amio bolus x 2 and resume Amio gtt. 03/08 Continue Amio at 1, required Amio bolus x2 overnight. Echo with 46%EF, mild global hypokinesis -increase Metoprolol to 25mg Q6H PO with hold parameters -Keep Mg >2, K>4 Idiopathic progressive neuropathy 02/26/2021 Assessment & Plan (03/10/2021 10:56 AM RUBBER TRIMMER): History of peripheral neuropathy in fingers and lower extremites. Followed by Dr. Estrella with pain management. Previously on gabapentin and pregabalin. -On pregabalin 50 mg qhs on floor -> resume Assessment & Plan (02/26/2021 9:03 PM RUBBER TRIMMER): Possibly multifactorial Currently on no medications No acute complains Will monitor Depression 02/26/2021 Assessment & Plan (03/06/2021 3:37 AM RUBBER TRIMMER): History of depression -Continue home mirtazapine Assessment & Plan (02/26/2021 9:08 PM RUBBER TRIMMER): Currently normal affect and mood Continue home mirtazapine Encounter for person encountering health service s 02/22/2021 Autologous donor of stem cells 01/11/2021 Numbness 12/15/2020 Mid back pain 11/03/2020 Assessment & Plan (03/10/2021 10:56 AM RUBBER TRIMMER): S/p palliative XRT: s/p RT 30 Gy/10 fx to L1-3 (09/22/2020-10/05/2020), 30 Gy/10 fx to the upper thoracic spine (09/29/2020-10/12/2020), and one dose XRT 03/02/21 -Contact rad onc for continuation of treatment after transplant -resume home pain meds at 02/12 dose: morphine ER 30 BID, Morphine 15 mg PRN Q6 with hypotension Assessment & Plan (02/26/2021 9:02 PM RUBBER TRIMMER): S/p radiation palliative RT at [facility]: s/p RT 30 Gy/10 fx to L1-3 (09/22/2020 - 10/05/2020) and 30 Gy/10 fx to the upper thoracic spine (09/29/2020 - 10/12/2020) under the direction of Dr. Mitch Jackson, S/p one dose treatment 03/02/[address] Arriaga team: as per patient treatment plan was to defer till after ASCT Will touch base with rad onc for continuation of treatment after transplant Continued home pain meds: morphine ER 30 BID and Morphine 15 mg PRN Q6 (patient states he takes 3-4 immediate release daily) Currently no acute pain Lumbar spine pain 10/12/2020 History of vertebral compression fracture 2020 Neuropathy associated with multiple myeloma 09/12 Cancer Staging:Clinical stage from 10/05/2020:RISS Stage III(Wywe-7-lwwjbrkznubzh (mg/L): 7.9, Albumin (g/dL): 2.4, ISS: Stage III, High-risk cytogenetics: Unknown, LDH: Elevated) - Signed by Judson Damon MD on 12/04/2020 Assessment & Plan (03/07/2021 4:04 PM RUBBER TRIMMER): Dx 09/2020 with diffuse spinal disease s/p XRT, RVD x4 with CA. Admit for melph auto SCT with Day 0 on 02/28/21 -OI ppx: acyclovir -For chemo induced pancytopenia, transfuse per BMT protocol -Filgrastim to start d+7 until ANC >1500 x2 or 5000 x1 -BMT following Assessment & Plan (02/26/2021 9:09 PM RUBBER TRIMMER): (10/05/20) with diffuse spinal disease s/p RT 30 Gy/10 fx to L1-3 (09/22/2020 - 10/05/2020) and 30 Gy/10 fx to the upper thoracic spine (09/29/2020 - 10/12/2020) under the direction of Dr. Mitch Jackson, later initiated on lenalidomide, bortezimib, daratumumab x 4 cycles (through 01/09/21) with at least a partial response, and later initiated on plerixafor 01/23/21 to mobilize his hematopoietic cells in anticipation of autologous stem cell transplant. Admitted for autologous stem cell transplant and melphalan. Continue pain management Follow up with radiation treatment after transplant. Urothelial carcinoma of bladder without invasion of muscle 09/19/2017 Overview (09/19/2017): Added automatically from request for surgery [id number] At risk for glaucoma 09/21/2014 Borderline glaucoma 09/21/2014 Assessment & Plan (03/06/2021 3:29 AM RUBBER TRIMMER): -Continued home latanoprost Assessment & Plan (02/26/2021 7:59 PM RUBBER TRIMMER): Continued home latanoprost Nuclear senile cataract 09/21/2014 Blurring of visual image 09/20/2014 Gastroesophageal reflux disease 09/20/2014 Asthma 09/20/2014 Assessment & Plan (02/19/2023 1:36 PM RUBBER TRIMMER): Having repeat symptoms occur, will increase daily Advair dose to 250-50 mcg/dose for hopefully better overall control. Concern for infection with lung sounds/O2 sats. Sending in Azithromycin, CXR today-if positive will add in Augmentin. Wanted to avoid but with the above sx going on, will add in oral steroid also. Assessment & Plan (08/23/2022 2:46 PM CDT): Continue the Advair daily and Albuterol prn. Empirically sending in Azithromycin, if no improvement/worsening will need CXR. Discussed starting daily Zyrtec. Assessment & Plan (03/06/2021 3:42 AM RUBBER TRIMMER): History of Asthma. -Continue Albuterol HFA prn and Breo Ellipta inhaler daily Assessment & Plan (02/26/2021 9:18 PM RUBBER TRIMMER): Continue home regimen /Alternative base on hospital availability: Albuterol HFA prn and Breo Ellipta inhaler daily Current Treatment and Therapy Plans COVID-19 - BMT (CMV NEGATIVE/UNTESTED) ADULT BLOOD AND PLATELET ADMINISTRATION FOR INPATIENT* Plan Start Date:2021 Plan Provider:Gopal Woody MD Linked Problems Neuropathy associated with m ultiple myeloma ([facility]) Treatment Medications No medications scheduled. Daratumumab SUBCUTANEOUS Monotherapy 28 Day Cycles - Myeloma* Plan Start Date: 05/14/2022 Plan Provider:Judson Damon MD Linked Problems Multiple myeloma in [facility] ([facility]) Treatment Medications Current Day (Day 1 , Cycle 25 - Planned for 08/28/2024) daratumumab-fihj (DARZALEX F ASPRO) (DARZALEX FASPRO)daratumumab-fihj (DARZALEZ FASPRO) (DARZELEX FASPRO) daratumumab-fihj (DARZALEX FASPRO) 1,800 mg -30,000 units hyaluronidase subcutaneous injection Immune Globulin (GAMUNEX) - 10% (HAMILTON PREFERRED)* Plan Start Date:03/07/2023 Plan Provider:Judson Damon MD Linked Problems HypogammaglobulinemiaMultipl e myeloma not having achieved remission ([facility]) Treatment Medications immune globulin (GAMUNEX-C,G AMMAKED) 10 % IV Maintenance Therapy Plan* Plan Start Date:12/28/2022 Plan Provider:Judson Damon MD Linked Problems Neuropathy associated with m ultiple myeloma ([facility]) Treatment Medications No medications scheduled. LIDOCAINE INFUSION* Plan Start Date:05/25/2024 Plan Provider:Abel Estrella MD Linked Problems Neuropathy associated with m ultiple myeloma (HCC) Treatment Medications No medications scheduled. Post-SCT Vaccinations* Plan Start Date:08/18/2021 Plan Provider:Judson Damon MD Linked Problems Neuropathy associated with m ultiple myeloma (HCC)Autologous donor of stem cellsEncounter for person encountering health services Treatment Medications Current Day (Day 1 , 5th Series (at least 18 months post-SCT) - Planned for 11/08/2022) Next Day (Day 1, 6th Series (at least 24 months post-SCT) - Planned for 05/07/2023) No medications scheduled. No medications schedul ed. No medications scheduled. Other Current Plans Qutenza* Plan Start Date:07/22/2024 Plan Provider:Abel Estrella MD Linked Problems Chemotherapy-induced periphe ral neuropathy Treatment Medications No medications scheduled. Past Treatment and Therapy Plans Line Care Plan Name Start Date Discontinue Date Treatment Medications Discontinue Reason Plan Provider IV Maintenance Therapy Plan 02/13/2021 03/14/2022 No medications scheduled. Therapy Complete Judson Murry MD Oncology Chemotherapy Treatment Plan Name Start Date Discontinue Date Treatment Medications Discontinue Reason Plan Provider Cycles Zoledronic Acid - Myeloma 1 01/11/2023 No medications scheduled. Therapy Complete Judson Chambers MD 16 of 16 cycles started Lenalidomide Maintenance 28 Day Cycles - Myeloma 2 05/11/2022 lenalidomide (REVLIMID) Therapy Complete Judson Chambers MD 11 of 23 cycles completed Daratumumab SUBCUTANEOUS / Lenalidomide / Bortezomib / Dexamethasone (D-RVd Induction) - 21 Day Cycles - Myeloma 10/14/2020 03/17/2021 bortezomib (VELCADE)darat umumab-fihj (DARZALEX FASPRO) (DARZALEX FASPRO)lenalid omide (REVLIMID) Therapy Complete Judson Chambers MD 4 of 4 cycles started Oncology Supportive Care Therapy Plan Plan Name Start Date Discontinue Date Treatment Medications Discontinue Reason Plan Provider Zoledronic Acid (ZOMETA) Infusion 10/21/2020 09/14/2022 No medications scheduled. Therapy Complete Judson Murry MD Oncology Treatment (2) Plan Name Start Date Discontinue Date Treatment Medications Discontinue Reason Plan Provider Cycles INPT - Melphalan - BMT 2 03/23/2021 melphalan (ALKERAN) IVPB in 250 mL Therapy Complete Judson Chambers MD 1 of 1 cycle started BMT - Standard Hematopoietic Progenitor Cell Mobilization Orders Autologous Mobilization - GCSF + GMCSF 02/11/20 21 02/22/2021 No medications scheduled. Therapy Complete Judson Chambers MD 1 of 1 cycle started PHERESIS Plan Name Start Date Discontinue Date Treatment Medications Discontinue Reason Plan Provider APHERESIS CELLULAR THERAPY CELL COLLECTION 02/14/2021 02/22/2021 No medications scheduled. Therapy Complete Judson Murry MD APHERESIS CELLULAR THERAPY CELL COLLECTION 01/24/2021 01/30/2021 No medications scheduled. Therapy Complete Judson Murry MD Specialty Infusion Treatment Plan Name Start Date Discontinue Date Treatment Medications Discontinue Reason Plan Provider darbepoetin (ARANESP) Injection every 2 weeks-MDS 11/11/2020 02/15/2022 No medications scheduled. Therapy Complete Judson Murry MD Specialty Infusion Treatment 2 Plan Name Start Date Discontinue Date Treatment Medications Discontinue Reason Plan Provider FILGRASTIM OR BIOSIMILAR SUBCUTANEOUS 12/19/2021 02/15/2022 No medications scheduled. Therapy Complete Judson Murry MD Radiation Treatments * Course C1_L_spine_202002/20/2021 - 02/21/2021 Treatment Period Energy Fraction Dose Fractions Total Dose Plans Planned L SPINE:1 02/20/2021 - 02/21/2021 300 2 / 600 Reference Points Delivered L SPINE 02/20/2021 - 02/21/2021 600 Lifetime Dose Tracking * Chemical Lifetime Dose Automatic Entry Manual Entr y Fluoro Time 8.922 minutes 8.922 minutes 0 minutes Air kerma at the reference point (Ka,r) 135.76 mGy 1 35.76 mGy 0 mGy DLP 2,211 mGycm 2,211 mGycm 0 mGycm Resolved Problems Problem Noted Date Diagnosed Date Resolved Date Secondary malignant neoplasm of bone 07/24/2022 05/10/2023 Hospital discharge follow-up 11/21/2021 04/07/2024 Assessment & Plan (11/21/2021 2:17 PM CDT): I have reviewed the hospital record, medications, and relevant testing from Jason Limon Stella's recent admission. Complications and discharge plan have been noted, reviewed. Post-discharge testing has been ordered. Neutropenia 11/21/2021 05/10/2023 Multifocal pneumonia 11/15/2021 023 Immunocompromised 03/24/2021 05/10/2023 VIELKA (acute kidney injury) 03/06/2021 Assessment & Plan (03/07/2021 4:02 PM RUBBER TRIMMER): 2/2 shock vs other. Baseline Cr ~0.8. Acute increased in BUN/Cr. Cr 1.52 (0.86) with peak of Cr 1.52. Over last 24 hours, UOP ~410 cc -Trend BUN/Cr, UOP -Cr: 0.90 -UOP: 1447mL -Avoid nephrotoxins Sepsis 03/06/2021 03/10/2024 Assessment & Plan (03/09/2021 10:49 AM RUBBER TRIMMER): Likely 2/2 sepsis related to unknown organism with neutropenic fever. On 03/05, febrile to 39.0, WBC 0.1, hypotensive requiring pressors after fluid resuscitation on the floor. 03/05 CT chest with no PE and bibasilar atelachesis Infectious work up 03/05: RVP neg, Bld cx-NGTD, fungal bld cx NGTD, UA neg, CDiff neg, VRE negative. S/p Vancomycin (03/05- 03/09) and Gent (03/06 x1). Pressors weaned off 03/07. S/p stress dose steroids. BC 03/08 NGTD -Cefepime (03/05- ) with plans to continue while neutropenic -FBG net even Anemia due to chemotherapy 11/04/2020 0 04/07/2024 Assessment & Plan (03/07/2021 4:03 PM RUBBER TRIMMER): -goal Hgb > 7 Assessment & Plan (02/26/2021 8:00 PM RUBBER TRIMMER): Monitor with daily CBC Transfusion base on BMT protocol
--- OUTSIDE RECORDS SUMMARY | 2024-08-20 01:24 | XMS_ITS | Encounter Summary ---
Author Organization [facility] Address [address] [place] [address] Phone Care Team Providers Care Dock Operator Name Role Phone Jamarcus Bennett MD Primary Care Provider [phone] Judson Damon MD Unavailable Nasim Dunn MD Unavailable [phone] Abel Estrella MD Unavailable [phone] Flora Arriaga MD Unavailable Derek Rose MD Unavailable + Logan Alexis MD Primary Care Provider Unknown, Notinfile Primary Care Provider Unavail able Tierra Terrazas Primary Care Pr ovider Encounter Details Date Type Department Care Team (Latest Contact Info) Description 02/16/2020 Orders Only [facility] Scanning, Provider Social History Tobacco Use Types Packs/Day Years Used Date Smoking Tobacco: Never Smokeless Tobacco: Never Alcohol Use Standard Drinks/Week Comments Yes 4 (1 standard drink = 0.6 oz pur e alcohol) Sex and Gender Information Value Date Recorded Sex Assigned at Not on file Legal Sex Male 11:03 AM INSPECTOR ROUGH CASTINGS Gender Identity Not on file Sexual Orientation Straight 10/02/2019 4: 02 PM CDT documented as of this encounter Plan of Treatment Not on file documented as of this encounter Procedures Procedure Name Priority Date/Time Associated Diagnosis Comments SCAN - LABS 02/16/2020 documented in this encounter Results * SCAN - LABS (02/16/2020) us Provider Scanning Final Result documented in this encounter Visit Diagnoses Not on filedocumented in this encounter Additional Health Concerns Infection Onset Date Last Indicated Resolved Time COVID: Suspected 03/05/2021 03/05/2021 03/06/2021 1:54 AM INSPECTOR ROUGH CASTINGS COVID: Suspected 11/15/2021 11/15/2021 11/15/2021 12:04 PM CDT COVID: Suspected 07/04/2022 07/04/2022 07/05/2022 3:05 AM CDT COVID: Suspected 10/03/2022 10/03/2022 10/03/2022 12:01 PM CDT COVID19 10/03/2022 10/03/2022 10/13/2022 3:05 AM CDT COVID: Recovered Comment:Added based on recent COVID infection. 10/13/2022 10/23/2022 01/11/2023 3:[address] documented as of this encounter Care Teams Dock Operator Relationship Specialty Start Date End Date Jamarcus Bennett MD [address] [place], [place] [id number] PCP - General Internal Medicine 04/21/18 11/24/21 Logan Alexis MD [address] [place], [place] [id number] PCP - General Family Medicine 11/25/21 04/30/24 Unknown, Notinfile PCP - General 05/01/24 06/30/24 Tierra Terrazas PA [address] [place], [place] [id number] PCP - General Physician Quantitative Equity Head 07/01/24 Judson Damon MD [address] [place] [address] Consulting Physician Medical Oncology 09/26/20 Nasim Dunn MD [address] [place] [address] Medical Oncologist/Roll Over Loader Medical Oncology 09/27/20 Abel Estrella MD [address] [place] [address] Anesthesiologist Pain Management 12/24/20 Flora Arriaga MD [address] [place] [address] Radiation Oncologist Radiation Oncology 01/27/21 Derek Rose MD [address] [place] [address] Referring Physician Gastroenterology 11/21/21 documented as of this encounter
--- OUTSIDE RECORDS SUMMARY | 2024-08-20 01:24 | XMS_ITS | Encounter Summary ---
Author Organization [facility] Address [address] [place] [address] Phone Care Team Providers Care Music Coordinator Name Role Phone Khanh Montes De Oca MD Primary Care Provider [phone] Jamarcus Bennett MD Primary Care Provider [phone]- [phone] Judson Damon MD Unavailable Nasim Dunn MD Unavailable [phone] Abel Estrella MD Unavailable [phone] Flora Arriaga MD Unavailable [phone] Derek Roes MD Unavailable + Logan Alexis MD Primary Care Provider [phone] Unknown, Notinfile Primary Care Provider Unavail able Tierra Terrazas Primary Care Pr ovider Encounter Details Date Type Department Care Team (Late st Contact Info) Description 01/18/2016 Orders Only [facility] Provider, MD Brandon [address] [place] [address] Social History Tobacco Use Types Packs/Day Years Used Date Smoking Tobacco: Never Sex and Gender Information Value Date Recorded Sex Assigned at Not on file 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 us Historical Provider NURSING COMMUNICATION Fin al Result documented in this encounter Visit Diagnoses Not on filedocumented in this encounter Additional Health Concerns Infection Onset Date Last Indicated Resolved Time COVID: Suspected 03/05/2021 03/05/2021 03/06/2021 1:54 AM PROP WORKER COVID: Suspected 11/15/2021 11/15/2021 11/15/2021 12:04 PM CDT COVID: Suspected 07/04/2022 07/04/2022 07/05/2022 3:05 AM CDT COVID: Suspected 10/03/2022 10/03/2022 10/03/2022 12:01 PM CDT COVID19 10/03/2022 10/03/2022 10/13/2022 3:05 AM CDT COVID: Recovered Comment:Added based on recent COVID infection. 10/13/2022 10/23/2022 01/11/2023 3:[address] documented as of this encounter Care Teams Music Coordinator Relationship Specialty Start Date End Date Khanh Montes De Oca MD PCP - General 08/24/16 04/20/18 Jamarcus Bennett MD [address] [place] [address] PCP - General Internal Medicine 04/21/18 11/24/21 Logan Alexis MD [address] [facility] [address] [place] [address] PCP - General Family Medicine 11/25/21 04/30/24 Unknown, Notinfile PCP - General 05/01/24 06/30/24 Tierra Terrazas PA [address] [place] [address] PCP - General Physician Clarifier 07/01/24 Judson Damon MD [address] [facility] [address] [place] [address] Consulting Physician Medical Oncology 09/26/20 Nasim Dunn MD [address] [facility] [address] [place] [address] Medical Oncologist/Electrical Equipment Technician Medical Oncology 09/27/20 Abel Estrella MD [address] [facility] [address] [place] [address] Anesthesiologist Pain Management 12/24/20 Flora Arriaga MD [address] [facility] [address] [place] [address] Radiation Oncologist Radiation Oncology 01/27/21 Derek Rose MD [address] [place] [address] Referring Physician Gastroenterology 11/21/21 documented as of this encounter
--- OUTSIDE RECORDS SUMMARY | 2024-08-20 01:24 | XMS_ITS | Clinical Summary ---
Author Organization [facility] Address [address] [place] [address] Care Team Providers Care Creative Services Designer Name Role Phone Judson Damon MD Primary Care Prov ider Social History Tobacco Use Types Packs/Day Years Used Date Smoking Tobacco: Never Assessed Sex and Gender Information Value Date Recorded Sex Assigned at Not on file Legal Sex Male 10:04 AM CDT Gender Identity Not on file Sexual Orientation Not on file Plan of Treatment Health Maintenance Due Date Last Done Comments DTAP/TDAP/TD VACCINES (1 - Tdap) 1978 COLORECTAL SCREENING 2004 Colorectal Cancer Screening 2004 FIT-DNA Q 3 years 2004 FIT/FOBT Q 1 year 2004 Flex Sig/CT Colonography Q 5 years 2004 PNEUMOCOCCAL VACCINE 50+ YEARS (1 of 1 - PCV) 03/11/19 10 ZOSTER VACCINE (1 of 2) 2009 INFLUENZA VACCINE (#1) 2024 RSV VACCINE (60+ or ) (1 - 1-dose 75+ series) 2034 Advance Directives For more information, please contact: [phone] Documents on File Type Date Recorded Patient Buffer Nickel Expl anation Advance Directive Living Will 10/06/2021 9:41 AM Advance Directive Living Will Care Teams Creative Services Designer Relationship Specialty Start Date End Date Judson Damon MD [address] [address] PCP - General Hematology and Oncology 10/06/21
--- OUTSIDE RECORDS SUMMARY | 2024-08-20 01:24 | XMS_ITS | Encounter Summary ---
Author Organization [facility] Address [address] [place] [address] Phone Care Team Providers Care Internal Combustion Engineer Name Role Phone Jamarcus Bennett MD Primary Care Provider [phone] Judson Damon MD Unavailable Nasim Dunn MD Unavailable [phone] Abel Estrella MD Unavailable [phone] Flora Arriaga MD Unavailable [phone] Derek Rose MD Unavailable + Lgoan Alexis MD Primary Care Provider Unknown, Notinfile Primary Care Provider Unavail able Tierra Terrazas Primary Care Pr ovider Encounter Details Date Type Department Care Team (Late st Contact Info) Description 03/13/2021 Ophth Exam [facility] Ophthalmology [address] [place] [address] 1[address] [place] [id number] Daniela Obando MD [address] [facility] [address] [place] [address] Social History Tobacco Use Types Packs/Day Years Used Date Smoking Tobacco: Never Smokeless Tobacco: Never Alcohol Use Standard Drinks/Week Comments Yes 4 (1 standard drink = 0.6 oz pur e alcohol) AUDIT-C Answer Date Recorded Q1: How often do you have a drink containing alc ohol? 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 Author CCM Chronic Pain Care Plan Chronic Care Management Worsening( 8:21 AM CDT) Sury Anthony RN Note: Problem: Chronic Pain Goals: 1. Minimize further functional decline 2. Maximize quality of life 3. Control pain Strategies: - Activity/exercise program recommendation - Conservative stepwise pain medicine strategy with multi-disciplinary approach - Recommend healthy lifestyle strategies and compensatory methods as needed documented as of this encounter Visit Diagnoses Not on filedocumented in this encounter Additional Health Concerns Infection Onset Date Last Indicated Resolved Time COVID: Suspected 11/15/2021 11/15/2021 11/15/2021 12:04 PM CDT COVID: Suspected 07/04/2022 07/04/2022 07/05/2022 3:05 AM CDT COVID: Suspected 10/03/2022 10/03/2022 10/03/2022 12:01 PM CDT COVID19 10/03/2022 10/03/2022 10/13/2022 3:05 AM CDT COVID: Recovered Comment:Added based on recent COVID infection. 10/13/2022 10/23/2022 01/11/2023 3:[address] documented as of this encounter Eye Exam Visual Acuity Right eye Left eye Near cc 20/20-3 ph 20/20 20/20-3 ph 20/2 0 Tonometry (Tonopen, 2:35 PM) Right eye Left eye Pressure 21 17 Pupils Dark Light Shape React APD Right eye 4 3 Round Brisk None Left eye 4 3.5 Round Minimal None Visual Barriga Right eye Left eye Full Full Extraocular Movement Right eye Left eye Full, Ortho Full, Ortho External Exam Right eye Left eye External Normal Normal Slit Lamp Exam Right eye Left eye Lids/Lashes Normal Normal Conjunctiva/Sclera White and quiet White and lisa et Cornea Clear Clear Anterior Chamber Deep and quiet Deep and quiet Iris Round and reactive Round and rafael ctive Lens Clear Clear Vitreous Normal Normal Fundus Exam Right eye Left eye Disc Normal Normal C/D Ratio 0.2 0.2 Macula Normal Normal Vessels Normal Normal Periphery Lattice degeneration Lattice deg eneration Care Teams Internal Combustion Engineer Relationship Specialty Start Date End Date Jamarcus Bennett MD [address] [facility] [address] [place] [address] PCP - General Internal Medicine 04/21/18 11/24/21 Logan Alexis MD [address] [facility] [address] [place], [place] [id number] PCP - General Family Medicine 11/25/21 04/30/24 Unknown, Notinfile PCP - General 05/01/24 06/30/24 Tierra Terrazas PA [address] [place], [place] [id number] PCP - General Physician Photo Mask Inspector 07/01/24 Judson Damon MD [address] [place] [address] Consulting Physician Medical Oncology 09/26/20 Nasim Dunn MD [address] [facility] [address] [place] [address] Medical Oncologist/Doughmaker Medical Oncology 09/27/20 Abel Estrella MD [address] [facility] [address] [place] [address] Anesthesiologist Pain Management 12/24/20 Flora Arriaga MD [address] [place] [address] Radiation Oncologist Radiation Oncology 01/27/21 Derek Rose MD [address] [place] [address] Referring Physician Gastroenterology 11/21/21 documented as of this encounter
--- OUTSIDE RECORDS SUMMARY | 2024-08-20 01:24 | XMS_ITS | Data Portability ---
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 Not available 05/04/2024 10:14:23 Plan of Treatment Reminders Order Date Submit Date Provider Last Modified By Organization Details Last Modified Time Details Appointments ANY 15 2024 09:00A M EDGAR Ball Not available Not available Not available [facility], [email or web address], [address], [address], [place], [address], 08/03/2024 12:07:59 TSH + free T4, serum 2024 025 [place] [address] [facility], [address], [place], [address], 08/03/2024 12:07:59 TSH + free T4, serum 2024 025 [place] [facility], [address], [address], [place], [address], 04/23/2024 07:07:43 T3, free, serum or plasma 2024 025 [place] [facility], [address], [place], [address], 04/23/2024 07:07:45 Referral None recorded. Procedures colonosco py procedure (PROC) 2024 025 [email or web address] Derek howard MD, [address], [address], [place], [address], 07/09/2024 12:07:17 Surgeries None recorded. Imaging None recorded. Medication Orders levothyro xine 75 mcg tablet 2024 025 [email or web address] [id number], [address], [place], [id number], 05/04/2024 09:57:54 Patient TargetsNo targets recorded. Patient Instructions Encounter Date Encounter Id Patient Instructions Last Modified By Organization Details Last Modified Time 2024 [id number] A healthy lifestyle: care instructions Not available 2024 18:59:07 05/04/2024 [id number] A healthy lifestyle: care instructions Not available 05/04/2024 10:17:47 Reason for Referral None Reported. Results Created Date Observation Date Name Description Value Unit Range Abnormal Flag Note LastModifiedBy Organization Detail LastModifiedTime 04/23/1904/23/2024 TSH+F REE T4 TSH 3.950 uIU/m L 0.450- 4.500 Not Available [facility] ([facility]) [address] [place], [address], 04/23/2024 07:07:43 04/23/19 25 04/23/2024 TSH+F REE T4 T4,free(dire ct) 1.26 NG/dL 0.82-1 .77 Not Available [facility] ([facility]) [address] [place], [address], 04/23/2024 07:07:43 04/23/19 25 04/23/2024 TRIIO DOTHY SENA E (T3), FREE triiodothyro nine (T3), free 3.3 pg/mL 2.0-4. 4 Not Available [facility] ([facility]) [address] [facility], [place], [address], 04/23/2024 07:07:45 Result Notes None recorded. Problems Name Problem SNOMED Code Status Onset Date Resolution Date Notes Provider Name and Address Organization Details Recorded Time Body mass index 30+ - obesity 374129050 Active 2024 EDGAR Ball Attn: Nancie randhawa,[address] [facility], [place], [address], [place] [facility] 18:58:22 Obesity 144725316 Active 2024 EDGAR Ball Attn: Nancie randhawa,[address] [place], [address], [place] [facility] 18:58:22 History of polyp of colon 724514538 Active 2024 EDGAR Ball Attn: Nancie randhawa,[address] [place], [address], [place] [facility] 5 18:58:30 Hypothyroid ism 31009118 Active 2024 EDGAR Ball Attn: Nancie randhawa,[address] [place], [address], [place] [facility] 5 18:58:40 History of multiple myeloma 2636161866548 09 Active 2024 EDGAR Ball Attn: Nancie randhawa,[address] [place], [address], [place] [facility] 5 18:58:51 History of atrial fibrillatio n 194147731 Active 2024 EDGAR Ball Attn: Nancie randhawa,[address] [place], [address], [place] [facility] 5 18:59:23 Long-term current use of anticoagula nt 251708561 Active 2024 EDGAR Ball Attn: Accountdonna g,[address] [facility], [place], [address], [place] 18:59:31 Hyperlipide mara 74899745 Active 2024 EDGAR Ball Attn: Accountdonna g,[address] [facility], [place], [address], [facility] - [facility] 5 18:59:46 Obstructive sleep apnea syndrome 99814900 Active 2024 EDGAR Ball Attn: Accountin g,[address] [facility], [place], [address], [facility] - [facility] 5 10:06:59 Male hypogonadis m 86695130 Active 2024 EDGAR Ball Attn: Accountdonna g,[address] [facility], [place], [address], [facility] - [facility] 12:34:53 Problem Notes None recorded. Procedures Surgical History Date Name Laterality Status Provider Name and Address Organization Details Recorded Time cataract surgery completed Megan Cui MA [facility] 2024 11:38:58 Imaging Results None recorded. Procedure Notes None recorded. Medical Equipment None Reported. Allergies Allergen ID Allergen Name Allergen Category Reaction Reaction Severity Criticality Documentation Date Start Date Code Code System Note Provider Name and Address Organization Details Recorded Time [id number] oxycodone medicatio n Not available Not available Not available 2024 7804 RxNorm Megan Cui MA null, [facility] 11:34:32 Medications Name Sig Start Date Stop Date Status Note LastModified by Organization Details LastModified Time latanoprost 0.005 % eye drops INSTILL 1 DROP INTO EACH EYE ONCE DAILY AT BEDTIME 03/11 completed Not Available Not Available Not Available acetaminoph en 325 mg tablet TAKE 2 TABLETS BY MOUTH 1 TO 3 HOURS PRIOR TO EACH DARATUMUM AB INJECTION 03/11 completed Not Available Not Available Not Available azithromyci n 250 mg tablet TAKE 2 TABLETS BY MOUTH FOR 1 DAY THEN TAKE 1 TABLET BY MOUTH DAILY FOR 4 DAYS 03/11 completed Not Available Not Available Not Available levothyroxi ne 75 mcg tablet TAKE 1 TABLET BY MOUTH EVERY DAY IN THE MORNING 2024 active Not Available Not Available Not Avai lable diphenhydra mine 25 mg capsule TAKE 1 CAPSULE BY MOUTH 1 TO 3 HOURS PRIOR TO EACH DARATUMUM AB INJECTION active Not Available Not Available No t Available dexamethaso ne 4 mg tablet TAKE 5 TABLETS BY MOUTH 1 TO 3 HOURS PRIOR TO EACH DARATUMUM AB INJECTION 05/04 completed Not Available Not Available Not Available modafinil 100 mg tablet Take 2 tablets every day by oral route. active Not Available Not Available No t Available rosuvastati n 20 mg tablet TAKE 1 TABLET BY MOUTH EVERY DAY active Not Available Not Available No t Available pregabalin 75 mg capsule Take 1 capsule every day by oral route for 30 days. 03/11 completed Not Available Not Available Not Available testosteron e 1.62 % (40.5 mg/2.5 gram) transdermal gel packet APPLY 1 PACKET TO THE THIGH OR SHOULDER DAILY active Not Available Not Available No t Available Eliquis 5 mg tablet Take 1 tablet twice a day by oral route. active Not Available Not Available No t Available Wixela Inhub 250 mcg-50 mcg/dose powder for inhalation INHALE 1 PUFF BY MOUTH TWICE DAILY. RINSE MOUTH WITH WATER AFTER USE. DO NOT SWALLOW 03/11 completed Not Available Not Available Not Available Wixela Inhub 100 mcg-50 mcg/dose powder for inhalation INHALE 1 PUFF BY MOUTH TWICE DAILY. RINSE MOUTH WITH WATER AFTER USE. DO NOT SWALLOW active Not Available Not Available No t Available Lagevrio 200 mg capsule (EUA) TAKE 4 CAPSULES (800 MG TOTAL) BY MOUTH EVERY 12 HOURS FOR 5 DAYS active Not Available Not Available No t Available Zepbound 2.5 mg/0.5 mL subcutaneou s pen injector ADMINISTE R 2.5 MG UNDER THE SKIN EVERY 7 DAYS active Not Available Not Available No t Available Vitals Date Recorded Systolic And Diastolic Provider Name and Address Organization Details Last Updated DateTime 2024 120/80 mm[Hg] EDGAR Ball Attn: Accounting,[address] [facility], [place], [address], [place] - [facility] 2024 12:12:18 Date Recorded Body weight Respiratory rate Body mass index (BMI) Body height Oxygen saturation Oxygen saturation in Arterial blood by Pulse oximetry Heart rate Oxygen saturation Oxygen saturation in Arterial blood by Pulse oximetry Systolic And Diastolic Provider Name and Address Organization Details Last Updated DateTime 386859. 68 g 18 /min 37.1 kg/m2 175.26 cm 93 % 93 % 69 /min 95 % 95 % 122/82 mm[Hg] Megan Cui MA [facility] 11:41:20 Date Recorded Systolic And Diastolic Provider Name and Address Organization Details Last Updated DateTime 05/04/2024 126/80 mm[Hg] EDGAR Ball Attn: Accounting,[address] [place], [address], [facility] 05/04/2024 10:17:39 Date Recorded Body height Body mass index (BMI) Body weight Respiratory rate Oxygen saturation Oxygen saturation in Arterial blood by Pulse oximetry Heart rate Systolic And Diastolic Provider Name and Address Organization Details Last Updated DateTime 175.26 cm 36 kg/m2 327170. 54 g 18 /min 98 % 98 % 63 /min 126/82 mm[Hg] Megan Cui MA [facility] 10:01:14 Social History Question Answer Notes LastModified by Organizat ion Details LastModified Time Tobacco Smoking Status Never Smoker Megan Cui MA null, [facility] 2024 17:07:20 Do You Have An Advance Directive? Yes Information not available 2024 Are You Blind Or Do You Have Difficulty Seeing? No Glasses Information not available 2024 What Is Your Level Of Caffeine Consumption? Moderate Large Cup Of Coffee A Day Information not available 2024 In The 14 Days Before Symptom Onset, Have You Had Close Contact With A Laboratory-confir med COVID-19 While That Case Was Ill? No Information not available 2024 In The 14 Days Before Symptom Onset, Have You Had Close Contact With A Person Who Is Under Investigation For COVID-19 While That Person Was Ill? No Information not available 2024 Have You Been To An Area Known To Be High Risk For COVID-19? No Information not available 2024 Are You Deaf Or Do You Have Serious Difficulty Hearing? No Information not available 2024 What Type Of Diet Are You Following? REGULAR Information not available 2024 Are There Any Guns Present In Your Home? No Information not available 2024 What Was The Date Of Your Most Recent Tobacco Screening? 05/04/2024 Information not available 05/04/2024 What Is Your Relationship Status? Information not available 2024 Do You Use Your Seat Belt Or Car Seat Routinely? Yes Information not available 2024 Do You Have Smoke And Carbon Monoxide Detectors In Your Home? Yes Information not available 2024 Do You Use Sunscreen Routinely? No Information not available 2024 Has Tobacco Cessation Counseling Been Provided? No Information not available 2024 Sex: Male Functional Status Question Answer Note LastModified by Organizat ion Details LastModified Time Do you use any illicit or recreational drugs? No Information not available 2024 Do you or have you ever used any other forms of tobacco or nicotine? No Information not available 2024 What is your level of alcohol consumption? Occasional Information not available 2024 Are you currently employed? Yes Information not available 2024 Are you able to care for yourself? Yes Information n ot available 2024 What is your exercise level? Occasional Information not available 2024 Mental Status None recorded. Family History Relationship Description Onset Age of this Age Resolved Age Notes LastModified by Organization Details LastModified Time Mother Diabetes mellitus [email or web address] Not available 2024 17:06:49 Father Diabetes mellitus [email or web address] Not available 2024 17:06:49 Father Heart disease [email or web address] Not available 01/29/ 2025 17:06:54 Father Hypertensive disorder tcarterma Not available 2024 17:06:58 Sister Malignant neoplasm of brain [email or web address] Not available 2024 17:07:07 Notes:will get from paper wo rk Medical History Condition Response Coronary Artery Disease N Other N Atrial Fibrillation Y High Blood Pressure N Thyroid Problems Y Kidney or Bladder Problems N Depression N COPD N Blood Clots N GI Problems N Have you had a mammogram in the last yea r? N Skin Problems N Anemia N Heart Attack (PA) N Diabetes N Anxiety Disorder N Muscle, Joint, or Bone Problems N Seizures/Epilepsy N Have you had a colonoscopy in the last 1 0 years? N Acid Reflux (GERD) Y Cancer N Stroke N Allergies Y Asthma Y Have you had a PSA blood test in the las t year? N High Cholesterol N Hepatitis N Liver Disease N Headaches N Osteoporosis N Heart Failure N Immunizations Vaccine Type Date Status Note Provider Nam e and Address Organization Details Recorded Time Influenza, split virus, quadrivalent, preservative 4 completed [place] [facility] 2024 11:35:53 IPV 3 completed Megan C[place] [facility] 2024 11:35:53 IPV 2 completed [place] [facility] 2024 11:35:53 IPV 2 completed [place] [facility] 2024 11:35:53 Influenza, MDCK, quadrivalent, PF 1 completed [place] [facility] 2024 11:35:53 zoster recombinant 2 completed [place] [facility] 2024 11:35:53 zoster recombinant 2 completed [place] [facility] 2024 11:35:53 zoster recombinant 0 [place] [facility] 2024 11:35:53 zoster recombinant 0 [place] [facility] 2024 11:35:53 COVID-19, mRNA, LNP-S, PF, 30 mcg/0.3 mL dose 1 [place] [facility] 2024 11:35:53 COVID-19, mRNA, LNP-S, PF, 30 mcg/0.3 mL dose 1 completed [place] [facility] 2024 11:35:53 COVID-19, mRNA, LNP-S, PF, 30 mcg/0.3 mL dose 1 [place] [facility] 2024 11:35:53 Pneumococcal conjugate PCV20, polysaccharide DOT653 conjugate, adjuvant, PF 4 completed [place] [facility] 2024 11:35:53 COVID-19, mRNA, LNP-S, PF, 30 mcg/0.3 mL dose, ace-sucrose 2 completed [place] [facility] 2024 11:35:53 COVID-19, mRNA, LNP-S, PF, 30 mcg/0.3 mL dose, ace-sucrose 2 completed [place] [facility] 2024 11:35:53 COVID-19, mRNA, LNP-S, bivalent, PF, 30 mcg/0.3 mL dose 2 completed [place] [facility] 2024 11:35:53 RSV, recombinant, protein subunit RSVpreF, adjuvant reconstituted, 0.5 mL, PF 4 completed [place] [facility] 2024 11:35:53 COVID-19, mRNA, LNP-S, PF, ace-sucrose, 30 mcg/0.3 mL 4 completed [place] [facility] 2024 11:35:54 COVID-19, mRNA, LNP-S, PF, ace-sucrose, 30 mcg/0.3 mL 4 completed [place] [facility] 2024 11:35:54 pneumococcal polysaccharide PPV23 3 completed [place] [facility] 2024 11:35:54 influenza, unspecified formulation 3 completed [place] [facility] 20[place] 11:35:54 influenza, unspecified formulation 2 completed [place] [facility] 20[place] 11:35:54 Tdap 3 completed [place] [facility] 2024 11:35:54 Pneumococcal conjugate PCV 13 3 completed [place] [facility] 2024 11:35:54 Pneumococcal conjugate PCV 13 2 completed [place] [facility] 2024 11:35:54 Pneumococcal conjugate PCV 13 2 completed [place] [facility] 2024 11:35:54 Hep B, adult 2 completed [place] [facility] 2024 11:35:54 Hep B, adult 2 completed [place] [facility] 2024 11:35:54 Hep B, high-dosage, dialysis or IC 3 completed [place] [facility] 2024 11:35:54 Hib (PRP-T) 3 completed [place] [facility] 2024 11:35:54 Hib (PRP-T) 2 completed [place] [facility] 2024 11:35:54 Hib (PRP-T) 2 completed WILLIE Souza, [place] - [facility] 2024 11:35:54 DTaP 2 completed WILLIE Souza, [place] - [facility] 2024 11:35:54 DTaP 2 completed WILLIE Souza, [place] - [facility] 2024 11:35:54 Influenza, split virus, quadrivalent, PF 0 completed WILLIE Souza, [place] - [facility] 2024 11:35:54 Influenza, MDCK, trivalent, PF 4 completed WILLIE Souza, [place] - [facility] 2024 11:35:54 Past Encounters Encounter ID Performer Location Encounter Start Date Encounter Closed Date Diagnosis/Indication Diagnosis SNOMED-CT Code Diagnosis ICD10 Code Diagnosis Note [id number] Boo Del Rio MD [facility] [place] [address] [place] [address] 2024 11:12:07 2024 12:55:46 History of polyp of colon 708004639 Z86.0100 Refer for follow-up colonoscop y Hypothyroidism 02003353 E03.9 Start levothyrox ine 75 mcg daily and repeat TSH, T4 and free T3 in mid April. Body mass index 30+ - obesity 228289498 Z68.37 BMI is 37.1 Obesity 461601044 E66.9 discussed healthy diet, exercise, controllin g carbohydra patrick and added sugars in the diet History of multiple myeloma 5650878348 08943 Z85.79 History of multiple myeloma reviewed and patient is on monthly therapy for chronic management posttransp lant stem-cell History of atrial fibrillation 470938992 Z86.79 Patient had 1 episode of atrial fibrillati on after his stem cell transplant and has been placed on Eliquis chronicall y. Long-term current use of anticoagulant 181342077 Z79.01 Patient is on Eliquis 5 mg twice daily for history of 1 episode of atrial fibrillati on Hyperlipidemia 70907435 E78.5 After his atrial fibrillati on episode he reports also being placed on rosuvastat in 20 mg daily for lipid management . He is currently up-to-date on those labs which were reviewed on his [facility] portal and all are stable. [id number] Boo Del Rio MD [facility] [place] [address] [place] [address] 05/04/2024 09:51:11 05/04/2024 10:45:07 Hypothyroidism 77990992 E03.9 Continue levothyrox ine 75 mcg daily, repeat labs again in 3 months Body mass index 30+ - obesity 604837764 Z68.36 BMI is 36 Obesity 864319204 E66.9 discussed healthy diet, exercise, controllin g carbohydra patrick and added sugars in the diet Obstructiv e sleep apnea syndrome 06787274 G47.33 on cpap nightly. now on modafinil 100mg daily. Long-term current use of anticoagulant 340167998 Z79.01 Patient is on Eliquis 5 mg twice daily for history of 1 episode of atrial fibrillati on History of atrial fibrillation 866312811 Z86.79 Patient had 1 episode of atrial fibrillati on after his stem cell transplant and has been placed on Eliquis chronicall y. History of multiple myeloma 5496039625 98571 Z85.79 History of multiple myeloma reviewed and patient is on monthly therapy for chronic management posttransp lant stem-cell History of polyp of colon 233167305 Z86.0100 Refer for follow-up colonoscop y, ok to complete, june 16 appt scheduled. stop eliquis 2 days prior to scope. june resume Hyperlipidemia 41492073 E78.5 After his atrial fibrillati on episode he reports also being placed on rosuvastat in 20 mg daily for lipid management . He is currently up-to-date on those labs which were reviewed on his MyChart portal and all are stable. We will repeat lipids again fasting in 3 months Health Concerns Section Related Observation LastModified by Organization Chandan mosquera LastModified Time None Recorded Concern Status LastModified by Organization Details LastModified Time None Recorded Advance Directives Directive Y: Payers Insurance Date Sequence Insurance Name Policy Number Policy Santamaria Covered Member ID Santamaria Member ID Guarantor Name 05/01/2024 [place] [facility] - [facility] Jason Douglas [id number] Jason Douglas 05/18/2024 2 [employer] (MEDICARE SUPPLEMENT) Jason Douglas [id number] Jason Douglas 05/01/2024 1 [place] Jason Douglas [id number] Jsaon Douglas Notes Date Note Type Note Provider Name and Address Organization Details Recorded Time 2024 text/html Hx of a-fib williami ng stem cell transplant and ICU stay. He is on Eliquis anticoagulation and has not been symptomatic for any AFib after that stem cell transplant.History of multiple myeloma, patient is on monthly injection therapy by the specialist and does take dexamethasone dosing prior to this treatment each month. The dexamethasone has contributed to significant amount of weight gain despite diet not being increased.Patient has a history of colon polyp and is in need of a new follow-up colonoscopy order.Patient does take statin therapy which was also given after his atrial fibrillation single episode.Patient has his [facility] portal available and shows recent labs which indicate a TSH level slightly above 6 and a free T4 of 0.8. He is interested in discussing thyroid management EDGAR Ball Attn: Accounting,[address] [facility], [place], [address], [place] [facility] 2024 19:00:24 05/04/2024 text/html Hx of a-fib duri ng stem cell transplant and ICU stay. He is on Eliquis anticoagulation and has not been symptomatic for any AFib after that stem cell transplant. History of multiple myeloma, patient is on monthly injection therapy by the specialist and does take dexamethasone dosing prior to this treatment each month. The dexamethasone has contributed to significant amount of weight gain despite diet not being increased. Patient has a history of colon polyp and is in need of a new follow-up colonoscopy order. Patient does take statin therapy which was also given after his atrial fibrillation single episode. Patient also has obstructive sleep apnea and is on CPAP nightly Now on hypothyroidism treatment that was started at the last new patient appointment after abnormal labs reviewed on his [facility] portal. He was started on low-dose levothyroxine 75 mcg daily and follow-up on labs today EDGAR Ball Attn: Accounting[address] [place], [address], [place] [facility] 05/16/2024 22:11:11
--- OUTSIDE RECORDS SUMMARY | 2024-08-20 01:24 | XMS_ITS | Referral Summary ---
Author Organization [facility] 2 Address [address] [facility] [place] [address] Care Team Providers Care Devops Developer Name Role Phone Judson Damon MD Unavailable Nasim Dunn MD Unavailable Abel Estrella MD Unavailable [phone] Flora Arriaga MD Unavailable Derek Rose MD Unavailable + [facility] ov[facility] Encounters Date Type Department Care Team Description 08/13/2024 Telephone [facility] [address] [facility] [address] [place] [address] Abel Estrella MD 08/13/2024 10:30 AM CDT Telemedicine [facility] [address] [facility] [address] 14th [place] [address] [place] [address] Virgilio Ferrer, PeeweeD Neuropathy involving both lower extremities (Primary Dx) 07/31/2024 1:30 PM CDT Infusion [address] [address] Multiple myeloma in remission (HCC) 07/31/2024 8:30 AM CDT Infusion [address] [phone] Hypogammaglobulinemia (Primary Dx); Multiple myeloma, remission status unspecified (HCC); Multiple myeloma not having achieved remission (HCC); Multiple myeloma in remission (HCC) 07/31/2024 8:00 AM CDT Lab [address] [address] Multiple myeloma in remission (HCC); Hypertriglyceridemia; Other thrombophilia 07/28/2024 Telephone [facility] Scheduling [address] [place] [address] Nelida Rowe MD PhD Scheduling Appointments 07/27/2024 Orders Only [facility] [address] [place] [phone] Kena Agrawal NP 07/22/2024 8:12 AM CDT - 07/22/2024 11:59 PM CDT Hospital Encounter [facility] [address] [facility] [address] [place] [address] Abel Estrella MD Rn, [facility] Chemotherapy-induced peripheral neuropathy (Primary Dx) Discharge Disposition: Discharge to home or self care 07/20/2024 Telephone [facility] [address] [place] [address] Abel Estrella MD [facility] Preprocedure 07/01/2024 9:45 AM CDT Office Visit [facility] Sleep Medicine at [address] [place] [address] Sarah Medina MD SRINIVAS (obstructive sleep apnea) (Primary Dx); Hypersomnia; Obesity, unspecified class, unspecified obesity type, unspecified whether serious comorbidity present 06/26/2024 12:00 PM CDT Infusion [address] [address] Multiple myeloma, remission status unspecified (HCC) 06/26/2024 9:30 AM CDT Infusion [address] [address] Hypogammaglobulinemia (Primary Dx); Multiple myeloma in remission (HCC); Multiple myeloma not having achieved remission (HCC) 06/26/2024 8:15 AM CDT Lab [address] [address] Multiple myeloma in remission (HCC); Multiple myeloma, remission status unspecified (HCC) 06/26/2024 8:45 AM CDT Office Visit [facility] [address] [place] [phone] Kena Agrawal NP Multiple myeloma, remission status unspecified (HCC) (Primary Dx); Multiple myeloma in remission (HCC) 06/24/2024 7:30 AM CDT - 06/24/2024 11:59 PM CDT Hospital Encounter [facility] [address] [place] [address] Advanced Medicine [address] [place] [address] Abel Estrella MD Chemotherapy-induced neuropathy (Primary Dx); Bilateral foot pain; Multiple myeloma in remission (HCC) Discharge Disposition: Discharge to home or self care 06/02/2024 Orders Only [facility] [address] [place] [phone] Judson Delacruz MD 05/29/2024 1:00 PM CDT Infusion [address] [address] Neuropathy associated with multiple myeloma (HCC) 05/29/2024 Orders Only [facility] [address] [place] [phone] Judson Delacruz MD 05/29/2024 12:30 PM CDT Infusion [address] [address] Multiple myeloma in remission (HCC) (Primary Dx); Hypogammaglobulinemia; Multiple myeloma not having achieved remission (HCC) 05/29/2024 12:00 PM CDT Lab [facility] [address] [place] [address] Multiple myeloma in remission (HCC) 05/29/2024 10:30 AM CDT Office Visit [facility] [address] [facility] 6th [place] [address] [place] [address] Veronica Sharpe MD Cognitive decline (Primary Dx); Chemotherapy-induced neuropathy 05/25/2024 Orders Only [facility] [address] [facility] [address] 6 [place] [address] Kena Agrawal NP 05/25/2024 12:41 PM CDT - 05/25/2024 11:59 PM CDT Hospital Encounter [facility] [address] [facility] [address] [place] [address] Princess Rivera MD PhD Chemotherapy-induced neuropathy (Primary Dx); Neuropathy associated with multiple myeloma (HCC) Discharge Disposition: Discharge to home or self care 05/21/2024 11:[address] [facility] - Palliative Care [address] [facility] [place] [address] Tonia Nielson MD Palliative care encounter (Primary Dx); Idiopathic progressive neuropathy; Neuropathy associated with multiple myeloma (HCC); Brain fog; Other fatigue; History of palpitations; Polypharmacy from Last 3 Months Allergies Active Allergy Reactions Criticality Noted Date Comments Oxycodone Nausea only Low 10/04/2020 Medications albuterol HFA (PROVENTIL HFA,VENTOLIN HFA,PROAIR HFA) 90 mcg/actuation inhaler Increase to 250 Active acetaminophen (TYLENOL) 325 mg tabletIndication s:premedication Take 2 tabs (650mg) 1-3 hours prior to each daratumumab injection. 100 tablet 4 Active diphenhydrAMINE 25 mg capsuleIndicatio ns:premedication Take 1 cap/tab (25mg) by mouth 1-3 hours prior to each daratumumab injection. 24 tablet/capsu le 4 Active apixaban (ELIQUIS) 5 mg tabletIndication s:atrial fibrillation Take 1 tablet (5 mg total) by mouth 2 (two) times a day 180 tablet 3 4 025 Active dexAMETHasone (DECADRON) 4 mg tabletIndication s:Multiple myeloma not having achieved remission (HCC) Take 5 tabs (20mg) 1-3 hours prior to each daratumumab injection. 30 tablet [address] (CYMBALTA) 30 mg capsuleIndicatio ns:Multiple myeloma in remission (HCC) Take 3 capsules (90 mg total) by mouth daily 90 capsule 1 4 Active Additional Information Patient taking differently: 60 mgoralNightly, Reported on 07/22/2024 cyanocobalamin, vitamin B-12, (VITAMIN B-12 ORAL) Take 1 tablet by mouth daily Active metoprolol tartrate (LOPRESSOR) 25 mg immediate release tabletIndication s:Atrial fibrillation, unspecified type (HCC) Take 0.5 tablets (12.5 mg total) by mouth 2 (two) times a day as needed (palpitations, rapid heart rate) 60 tablet 1 4 Active rosuvastatin (CRESTOR) 20 mg tabletIndication s:Hypertriglycer idemia TAKE 1 TABLET(20 MG) BY MOUTH DAILY 30 tablet 3 4 Active levothyroxine (SYNTHROID) 75 mcg tablet Take 1 tablet (75 mcg total) by mouth every morning Active naltrexone (LOW DOSE) 4.5 mg capsule Take 1 capsule (4.5 mg total) by mouth 2 (two) times a day 180 capsule 1 5 Active modafiniL (PROVIGIL) 200 mg tablet Take 1 tablet (200 mg total) by mouth daily 30 tablet 2 5 Active testosterone 1.62 % (40.5 mg/2.5 gram) gel in packetIndication s:Multiple myeloma, remission status unspecified (HCC) APPLY 1 PACKET TOPICALLY TO THIGH DAILY 75 g 5 Active fluticasone propion-salmeter oL (ADVAIR DISKUS) 100-50 mcg/dose diskus inhalerIndicatio ns:Mild intermittent asthma without complication Inhale 1 puff 2 (two) times a day Rinse mouth with water after use. Do not swallow. 1 each 2 5 Active tirzepatide, weight loss, (Zepbound) 5 mg/0.5 mL pen injectorIndicati ons:Weight Loss Management for Obese Patient (BMI >= 30),obstructive sleep apnea syndrome Inject 0.5 mL (5 mg total) under the skin every 7 days 2 mL 5 Active modafiniL (PROVIGIL) 100 mg tabletIndication s:Sleepiness Due To Obstructive Sleep Apnea Take 1 tablet (100 mg total) by mouth daily after lunch No later than 2:00 p.m. 30 tablet 2 5 Active acyclovir (ZOVIRAX) 400 mg tabletIndication s:Multiple myeloma not having achieved remission ([facility]) TAKE 1 TABLET(400 MG) BY MOUTH EVERY 8 HOURS 90 tablet 3 5 Active tirzepatide, weight loss, (ZEPBOUND) 2.5 mg/0.5 mL pen injectorIndicati ons:Weight Loss Management for Obese Patient (BMI >= 30),obstructive sleep apnea syndrome Inject 0.5 mL (2.5 mg total) under the skin every 7 days 2 mL 5 025 Active Problems Patient Care Coordination No te Formatting of this note is d ifferent from the original. BMT Inpatient Care CoordinationMM Overview Diagnosis MM Floor [id number] to ICU 03/06 Treatment Plan Clinical Trial [...] Medical Assistants Post-Discharge Follow-Up Living Situation/Distance from [facility] Rishabh Barron local Caregiver Lab/Transfusion Frequency Phone: Fax: Venous Access & Care tunneled central venous catheter Local Oncologist Contact PCP listed Phone: Fax: Post-Discharge Office Visit (H30) [facility]OM[facility] Jyoti 03/24 in [place] Miscellaneous Notes: Patient will need chest CT [...] 01/29/2023 Assessment & Plan (01/30/2024 9:13 AM WIND UP WORKER): BMI Follow-up includes: nutrition counseling, exercise counseling, and education provided. Assessment & Plan (07/31/2023 8:42 AM CDT): BMI Follow-up includes: nutrition counseling, exercise counseling, education provided, and will consider Wegovy or Zepbound if covered . Assessment & Plan (02/02/2023 2:49 PM WIND UP WORKER): BMI Follow-up includes: nutrition counseling, exercise counseling, [...] 03/09/2021 Assessment & Plan (03/10/2021 10:55 AM WIND UP WORKER): Unclear etiology. Had been having diarrhea that has since stopped. -03/[address] with partial SBO -stopped imodium -diarrhea again 03/09 overnight -abdominal pain improved -resume scheduled and PRN morphine at 1/2 dose A-fib 03/06/2021 Assessment & Plan (03/10/2021 10:39 AM WIND UP WORKER): New onset Afib on 03/06 with rates [...] 02/26/2021 Assessment & Plan (03/10/2021 10:56 AM WIND UP WORKER): History of peripheral neuropathy in fingers and lower extremites. Followed by Dr. Estrella with pain management. Previously on gabapentin and pregabalin. -On pregabalin 50 mg qhs on floor -> resume Assessment & Plan (02/26/2021 9:03 PM WIND UP WORKER): Possibly multifactorial Currently on no medications No acute complains Will monitor Depression 02/26/2021 Assessment & Plan (03/06/2021 3:37 AM WIND UP WORKER): History of depression -Continue home mirtazapine Assessment & Plan (02/26/2021 9:08 PM WIND UP WORKER): Currently normal affect and mood Continue home mirtazapine Encounter for person encountering health service s 02/22/2021 Autologous donor of stem cells 01/11/2021 Numbness 12/15/2020 Mid back pain 11/03/2020 Assessment & Plan (03/10/2021 10:56 AM WIND UP WORKER): S/p palliative XRT: s/p RT 30 Gy/10 fx to L1-3 (09/22/2020-10/05/2020), 30 Gy/10 fx to the upper thoracic spine (09/29/2020-10/12/2020), and one dose XRT 03/02/21 -Contact rad onc for continuation of treatment after transplant -resume home pain meds at 02/12 dose: morphine ER 30 BID, Morphine 15 mg PRN Q6 with hypotension Assessment & Plan (02/26/2021 9:02 PM WIND UP WORKER): S/p radiation palliative RT at [facility]: s/p RT 30 Gy/10 fx to L1-3 [...] 09/12 Cancer Staging:Clinical stage from 10/05/2020:RISS Stage III(Rgip-0-enjakcukuktrs (mg/L): 7.9, Albumin (g/dL): 2.4, ISS: Stage III, High-risk cytogenetics: Unknown, LDH: Elevated) - Signed by Judson Damon MD on 12/04/2020 Assessment & Plan (03/07/2021 4:04 PM WIND UP WORKER): Dx 09/2020 with diffuse spinal disease s/p XRT, RVD x4 with GA. Admit for melph auto SCT with Day 0 on 02/28/21 -OI ppx: acyclovir -For chemo induced pancytopenia, transfuse per BMT protocol -Filgrastim to start d+7 until ANC >1500 x2 or 5000 x1 -BMT following Assessment & Plan (02/26/2021 9:09 PM WIND UP WORKER): (10/05/20) with diffuse spinal disease s/p RT [...] (09/19/2017): Added automatically from request for surgery [id number] At risk for glaucoma 09/21/2014 Borderline glaucoma 09/21/2014 Assessment & Plan (03/06/2021 3:29 AM WIND UP WORKER): -Continued home latanoprost Assessment & Plan (02/26/2021 7:59 PM WIND UP WORKER): Continued home latanoprost Nuclear senile cataract 09/21/2014 Blurring of visual image 09/20/2014 Gastroesophageal reflux disease 09/20/2014 Asthma 09/20/2014 Assessment & Plan (02/19/2023 1:36 PM WIND UP WORKER): Having repeat symptoms occur, will increase daily [...] Zyrtec. Assessment & Plan (03/06/2021 3:42 AM WIND UP WORKER): History of Asthma. -Continue Albuterol HFA prn and Breo Ellipta inhaler daily Assessment & Plan (02/26/2021 9:18 PM WIND UP WORKER): Continue home regimen /Alternative base on hospital availability: Albuterol HFA prn and Breo Ellipta inhaler daily Resolved Problems Problem Noted Date Diagnosed Date Resolved Date Secondary malignant neoplasm of bone 07/24/2022 05/10/2023 Hospital discharge follow-up 11/21/2021 04/07/2024 Assessment & Plan (11/21/2021 2:17 PM CDT): I have reviewed the hospital record, medications, and relevant testing from Jason Douglas's recent admission. Complications and discharge plan have been noted, reviewed. Post-discharge testing has been ordered. Neutropenia 11/21/2021 05/10/2023 Multifocal pneumonia 11/15/2021 023 Immunocompromised 03/24/2021 05/10/2023 VIELKA (acute kidney injury) 03/06/2021 Assessment & Plan (03/07/2021 4:02 PM WIND UP WORKER): 2/2 shock vs other. Baseline Cr ~0.8. Acute increased in BUN/Cr. Cr 1.52 (0.86) with peak of Cr 1.52. Over last 24 hours, UOP ~410 cc -Trend BUN/Cr, UOP -Cr: 0.90 -UOP: 1447mL -Avoid nephrotoxins Sepsis 03/06/2021 03/10/2024 Assessment & Plan (03/09/2021 10:49 AM WIND UP WORKER): Likely 2/2 sepsis related to unknown organism [...] 04/07/2024 Assessment & Plan (03/07/2021 4:03 PM WIND UP WORKER): -goal Hgb > 7 Assessment & Plan (02/26/2021 8:00 PM WIND UP WORKER): Monitor with daily CBC Transfusion base on BMT protocol Immunizations Immunization Administration Dates Next Due COVID-19 mRNA ([place]) 0.3 m L (30 mcg) vaccine (12 years and up) 01/11/2024 DTaP 10/13/2021,08/18/2021 Hep B Vaccine 10/13/2021,08/18/2021 Hep B, Dialysis 03/16/2022 Hib (PRP-T) 03/16/2022,10/13/2021,08/18/2021 IPV 08/10/2022,10/13/2021,08/18/2021 Influenza, Quadrivalent, Meghann l Culture-based MDCK, Preservative Free, Antibiotic Free, Intramuscular 12/02/2020 Influenza, Quadrivalent, Spl it, Intramuscular 03/10/2013 Influenza, Quadrivalent, Spl it, Preservative Free, Intramuscular 11/23/2019 Influenza, Trivalent, Cell Culture-based MDCK, Preservative Free, Antibiotic Free, Intramuscular 01/11/2024 Influenza, Unspecified 10/31/2022,2021,11/21/2021(Defer red: Other) Pfizer SARS-CoV-2 Monovalent Vaccination (12+ Yrs) PURPLE 04/29/2020,04/08/2020 Pfizer Sars-Cov-2 Bivalent V accination (12+ YRS) 11/23/2021 Pneumococcal Conjugate PCV 13 03/16/2022, 022,08/18/2021 Pneumococcal Conjugate Pcv20 01/11/2024 Pneumococcal Polysaccharide PPV23 08/10/2022 RSV Vaccine, Pref, Recombina nt, Subunit, Adjuvanted, PF, IM (Arexvy) 02/20/2023 Tdap 03/16/2022 ZOSTER Recombinant 10/13/2021,,02/11/2020,11/30 Social History Tobacco Use Types Packs/Day Years Used Date Smoking Tobacco: Never Passive Smoke Exposure: Never Smokeless Tobacco: Never Tobacco Cessation:Counseling Given: Not Answered Alcohol Use Standard Drinks/Week Comments Yes 4 (1 standard drink = 0.6 oz pur e alcohol) Social Connection and Isolat ion Panel [NHANES] Answer Date Recorded In a typical week, how many times do you talk on the phone with family, friends, or neighbors? More than three times a week 11/16/2021 How often do you get togethe r with friends or relatives? More than three times a week 11/16/2021 How often do you attend chur or yarsani services? Never 11/16/2021 Do you belong to any clubs o r organizations such as rastafarian groups, unions, fraternal or athletic groups, or school groups? No 11/16/2021 How often do you attend meet ings of the clubs or organizations you belong to? Never 11/16/2021 Are you , , di vorced, , never , or living with a partner? 11/16/2021 AUDIT-C Answer Date Recorded Q1: How often do you have a drink containing alc ohol? 2-3 times a week 07/22/2024 Q2: How many drinks containi ng alcohol do you have on a typical day when you are drinking? 3 or 4 07/22/2024 Q3: How often do you have si x or more drinks on one occasion? Never 07/22/2024 Overall Financial Resource Strain (CARDIA) Answe r Date Recorded How hard is it for you to pa y for the very basics like food, housing, medical care, and heating? Not hard at all 11/16/2021 PHQ-2 Answer Date Recorded PHQ-2 Total Score (If total score is 3 or more points, staff should administer the PHQ-9) 0 01/30/2024 Hunger Vital Sign Answer Date Recorded Within the past 12 months, y ou worried that your food would run out before you got the money to buy more. Never true 07/23/19 25 Within the past 12 months, t he food you bought just didn't last and you didn't have money to get more. Never true 07/22/2024 PRAPARE - Transportation Answer Date Re corded In the past 12 months, has l ack of transportation kept you from medical appointments or from getting medications? No 07/2021 In the past 12 months, has l ack of transportation kept you from meetings, work, or from getting things needed for daily living? No 11/16/2021 Housing Stability Vital Sign Answer Parker e Recorded In the last 12 months, was t here a time when you were not able to pay the mortgage or rent on time? No 11/16/2021 In the last 12 months, how many places have you lived? 1 11/16/2021 In the last 12 months, was t here a time when you did not have a steady place to sleep or slept in a intermediate (including now)? No 11/16/2021 Education Answer Date Recorded What is the highest level of school you have completed or the highest degree you have received? 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 Author [facility] Chronic Pain Care Plan Chronic Care Management Worsening( 8:21 AM CDT) No Sury Hodges, RN Note: Problem: Chronic Pain Goals: 1. Minimize further functional decline 2. Maximize quality of life 3. Control pain Strategies: - Activity/exercise program recommendation - Conservative stepwise pain medicine strategy with multi-disciplinary approach - Recommend healthy lifestyle strategies and compensatory methods as needed [facility] Fall Prevention Care Plan Chronic Care Management Improving( 10:10 AM CDT) No Leigh Ann Doyle, YENY Note: Problem: Falls Goals: 1. Maintain strength and balance as able 2. Prevent falls and fractures 3. Maximize safety of living environment Strategies: - Educate on fall prevention and follow-up as needed - Recommend activity/exercise program - Refer to allied health as needed - Recommend healthy lifestyle strategies and compensatory methods as needed Medical Devices Implanted Type Area Control Tower Radio Operator Device Identifier Shelf Expiration Date Model / Serial / Lot [employer] [id number] Vertaplex Hv Autoplex Without Needle Delivery System Kit Bone - [id number] - [id number] Implanted:Qty: 1 on 11/10/2020 by Abel Estrella MD at [facility] Bone Cement [employer] 12/11/2021 [id number] / [id number] / [id number] [employer] [id number] Vertaplex Hv Autoplex Without Needle Delivery System Kit Bone - [id number] - [id number] Implanted:Qty: 1 on 11/10/2020 by Abel Estrella MD at [facility] Bone Cement [employer] 11/10/2021 [id number] / [id number] / [id number] Bilateral Eye Implants Eye Procedures Procedure Name Priority Date/Time Associated Diagnosis Comments EGFR STAT 07/31/2024 8:09 AM CDT Multiple myeloma in remission (HCC) DIFFERENTIAL AUTO Routine 07/31/2024 8:0 9 AM CDT Multiple myeloma in remission (HCC) LIPID PANEL Routine 07/31/2024 8:09 AM CDT Hypertriglyceridemia Other thrombophilia CBC WITH AUTO DIFFERENTIAL Routine 07/31/2024 8:09 AM CDT Multiple myeloma in remission (HCC) COMPREHENSIVE METABOLIC PANEL STAT 07/31/2024 8:09 AM CDT Multiple myeloma in remission (HCC) URIC ACID Routine 07/31/2024 8:09 AM CDT Multiple myeloma in remission (HCC) EGFR STAT 06/26/2024 8:26 AM CDT Multiple myeloma in remission (HCC) DIFFERENTIAL AUTO Routine 06/26/2024 8:2 6 AM CDT Multiple myeloma in remission (HCC) IGA Routine 06/26/2024 8:26 AM CDT Multiple myeloma, remission status unspecified (HCC) IGG Routine 06/26/2024 8:26 AM CDT Multiple myeloma, remission status unspecified (HCC) IGM Routine 06/26/2024 8:26 AM CDT Multiple myeloma, remission status unspecified (HCC) IMMUNOGLOBULIN FREE LIGHT CHAINS Routine 06/26/2024 8:26 AM CDT Multiple myeloma, remission status unspecified (HCC) LACTATE DEHYDROGENASE Routine 06/26/2024 8:26 AM CDT Multiple myeloma, remission status unspecified (HCC) PROTEIN ELECTROPHORESIS, WITH REFLEX, SERUM Routine 06/26/2024 8:26 AM CDT Multiple myeloma, remission status unspecified (HCC) IMMUNOTYPING Routine 06/26/2024 8:26 AM CDT Multiple myeloma, remission status unspecified (HCC) CBC WITH AUTO DIFFERENTIAL Routine 06/26/2024 8:26 AM CDT Multiple myeloma in remission (HCC) COMPREHENSIVE METABOLIC PANEL STAT 06/26/2024 8:26 AM CDT Multiple myeloma in remission (HCC) URIC ACID Routine 06/26/2024 8:26 AM CDT Multiple myeloma in remission (HCC) EGFR STAT 05/29/2024 12:16 PM CDT Multiple myeloma in remission (HCC) DIFFERENTIAL AUTO Routine 05/29/2024 12: 16 PM CDT Multiple myeloma in remission (HCC) CBC WITH AUTO DIFFERENTIAL Routine 05/29/2024 12:16 PM CDT Multiple myeloma in remission (HCC) COMPREHENSIVE METABOLIC PANEL STAT 05/29/2024 12:16 PM CDT Multiple myeloma in remission (HCC) URIC ACID Routine 05/29/2024 12:16 PM CDT Multiple myeloma in remission (HCC) PSA SCREEN Routine 01/20/2024 9:00 AM WIND UP WORKER Screening PSA (prostate specific antigen) HEPATITIS C ANTIBODY Routine 01/29/2022 11:19 AM WIND UP WORKER Encounter for hepatitis C screening test for low risk patient HM COLONOSCOPY Routine 03/25/2019 from Last 3 Months or Most Recently Relevant to Health Maintenance Results * eGFR (07/31/2024 8:09 AM CDT) eGFR 81 >=60 mL/min/1. 73 m2 Comment: Interpretive Data Reference Interval Normal >/= 90 mL/min/1.73m2 Mildly decreased* 60 - 89 mL/min/1.73m2 Mildly to moderately decreased 45 - 59 mL/min/1.73m2 Moderately to severely decreased 30 - 44 mL/min/1.73m2 Severely decreased 15 - 29 mL/min/1.73m2 Kidney Failure < 15 mL/min/1.73m2 *Relative to young adult level Estimated glomerular filtration rate is determined by the 2020 CKD-EPI equation recommended by the National Kidney Foundation (A Unifying Approach to GFR Estimation: Recommendations of the NKF-ASK Task Force on Reassessing the Inclusion of Race in Diagnosing Kidney Disease, JASN 2020). The CKD-EPI equation should not be used for patients with unstable renal function and has not been validated in children and those over 70. Current interpretive data was last reviewed 2020. Blood 07/31/2024 8:09 AM CDT 07/31/2024 8:09 AM CDT Judson Damon MD LAB BLOOD ORDER DYLON Final Result [facility] Department [place] [address] * Differential, auto (07/31/2024 8:09 AM CDT) Pathologist [facility] [place] Neutrophil abs 1.61 1.50 - 6.50 K/cumm Comment:Testing performed by : [facility], [address] [place] [address] Imm gran abs 0.00 0.00 - 0.10 K/cumm [facility] Lymphocyte abs 1.49 0.80 - 3.30 K/cumm [facility] Monocyte abs 0.52 0.20 - 0.80 K/cumm [facility] Eosinophil abs 0.18 0.00 - 0.50 K/cumm [facility] Basophil abs 0.04 0.00 - 0.10 K/cumm [facility] Neutrophil pct 42.0 % [facility] Comment: Interpretive Data Percent cell count reference ranges are not reported, since discordance with absolute values may lead to misinterpretation of CBC data. Current Interpretive Data was last revised on 2017. Imm gran pct 0.0 % [facility] Comment: Interpretive Data Percent cell count reference ranges are not reported, since discordance with absolute values may lead to misinterpretation of CBC data. Current Interpretive Data was last revised on 2017. Lymphocyte pct 38.8 % [facility] Comment: Interpretive Data Percent cell count reference ranges are not reported, since discordance with absolute values may lead to misinterpretation of CBC data. Current Interpretive Data was last revised on 2017. Monocyte pct 13.5 % [facility] Comment: Interpretive Data Percent cell count reference ranges are not reported, since discordance with absolute values may lead to misinterpretation of CBC data. Current Interpretive Data was last revised on 2017. Eosinophil pct 4.7 % [facility] Comment: Interpretive Data Percent cell count reference ranges are not reported, since discordance with absolute values may lead to misinterpretation of CBC data. Current Interpretive Data was last revised on 2017. Basophil pct 1.0 % [facility] Comment: Interpretive Data Percent cell count reference ranges are not reported, since discordance with absolute values may lead to misinterpretation of CBC data. Current Interpretive Data was last revised on 2017. Blood 07/31/2024 8:09 AM CDT 07/31/2024 8:09 AM CDT Judson Damon MD LAB BLOOD ORDER DYLON Final Result [facility] Department [place] [address] * (ABNORMAL) CBC with auto differential (07/31/2024 8:09 AM CDT) WBC 3.84 3.80 - 9.90 K/cumm Comment:Testing performed by : [facility], [address] [place] [address] Hgb 12.4(L) 13.0 - 17.5 g/dL [facility] Comment:Testing performed by : [facility], [address] [place] [address] Hct 37.3(L) 38.9 - 50.3 % [facility] Comment:Testing performed by : [facility], [address] [place] [address] Plt 160 150 - 400 K/cumm [facility] Comment:Testing performed by : [facility], [address] [place] [address] MPV 9.1 9.1 - 12.3 fL [facility] RBC 3.48(L) 4.30 - 5.80 M/cumm [facility] MCV 107.2(H) 81.3 - 96.4 fL [facility] MCH 35.6(H) 27.1 - 33.3 pg [facility] MCHC 33.2 32.3 - 35.7 g/dL [facility] RDW CV 14.4 11.1 - 14.9 % [facility] RDW SD 56.8(H) 35.7 - 48.1 fL [facility] NRBC abs 0.00 0.00 - 0.01 K/cumm [facility] ANC Prelim 1.61 1.50 - 6.50 K/cumm [facility] Comment: Interpretive Data The rapid ANC is a preliminary automated count and may vary from the final ANC (Neut Abs) reported in the WBC differential that follows. Current interpretive data was last revised 2024. Blood 07/31/2024 8:09 AM CDT 07/31/2024 8:09 AM CDT us Judson Damon MD LAB BLOOD ORDER DYLON Final Result [facility] Department [place] [address] * Uric acid (07/31/2024 8:09 AM CDT) Uric acid 4.6 3.0 - 8.0 mg/dL Comment:Testing performed by : [facility], [address] [place] [address] Blood 07/31/2024 8:09 AM CDT 07/31/2024 8:09 AM CDT Judson Damon MD LAB BLOOD ORDER DYLON Final Result [facility] Department [place] [address] * Lipid panel (07/31/2024 8:09 AM CDT) Cholesterol 104 30 - 199 mg/dL Comment: Interpretive Data Ages < or = 19 years Acceptable: <170 mg/dL Borderline high: 170-199 mg/dL High: >or= 200 mg/dL Ages > or = 20 years Desirable: <200 mg/dL Borderline high: 200-239 mg/dL High: >or= 240 mg/dL Literature References: 1. Expert Panel on Integrated Guidelines for Cardiovascular Health and Risk Reduction in Children and Adolescents. Pediatrics 2011;128:S213 2. NCEP Expert Panel. Circulation 2004;110:227 Current Interpretive Data was last revised on 2017. Triglycerides 61 <=149 mg/dL [facility] Comment: Interpretive Data Ages < or = 9 years Acceptable: <75 mg/dL Borderline high: 75-99 mg/dL High: >or= 100 mg/dL Ages 10 to 20 years Acceptable: <90 mg/dL Borderline high: 90-129 mg/dL High: >or= 130 mg/dL Ages > or = 20 years Desirable: <150 mg/dL Borderline high: 150-199 mg/dL High: 200-499 mg/dL Very high: >or= 499 mg/dL Literature References: 1. Expert Panel on Integrated Guidelines for Cardiovascular Health and Risk Reduction in Children and Adolescents. Pediatrics 2011;128:S213 2. NCEP Expert Panel. Circulation 2004;110:227 Current Interpretive Data was last revised on 2017. HDL 50 >=40 mg/dL [facility] Comment: Interpretive Data Ages < or = 19 years Acceptable: >45 mg/dL Borderline low: 40-45 mg/dL Low: <40 mg/dL Ages > or = 20 years Desirable: >or= 60 mg/dL Low: <40 mg/dL Literature References: 1. Expert Panel on Integrated Guidelines for Cardiovascular Health and Risk Reduction in Children and Adolescents. Pediatrics 2011;128:S213 2. NCEP Expert Panel. Circulation 2004;110:227 Current Interpretive Data was last revised on 2017. LDL, calculated 40 <=129 mg/dL [facility] Comment: Interpretive Data Ages < or = 19 years Acceptable: <110 mg/dL Borderline high: 110-129 mg/dL High: >or= 130 mg/dL Ages > or = 20 years Optimal: <100 mg/dL Near optimal: 100-129 mg/dL Borderline high: 130-159 mg/dL High: >160 mg/dL Calculated using the Josh LDL-C estimating equation. This equation was implemented on 2023. Prior to this date LDL-C was estimated using the Friedewald equation. Literature References: 1. Expert Panel on Integrated Guidelines for Cardiovascular Health and Risk Reduction in Children and Adolescents. Pediatrics 2011;128:S213 2. NCEP Expert Panel. Circulation 2004;110:227 3. Josh Nguyễn et al. ZAC Cardiol. 2020 June 11;5(5):540-548. doi: 10.1001/jamacardio.2020.0013 Current Interpretive Data was last revised on 2023. Non-HDL Cholesterol 54 mg/dL [facility] Comment: Interpretive Data Ages < or = 19 years Acceptable: <120 mg/dL Borderline high: 120-144 mg/dL High: >145 mg/dL Ages > or = 20 years When triglycerides are >200 mg/dL, Non-HDL cholesterol is a secondary target of therapy with treatment goals that are 30 mg/dL greater than the LDL cholesterol target. Literature References: 1. Expert Panel on Integrated Guidelines for Cardiovascular Health and Risk Reduction in Children and Adolescents. Pediatrics 2011;128:S213 2. NCEP Expert Panel. Circulation 2004;110:227 Current Interpretive Data was last revised on 2017. Chol/HDL ratio 2 [facility] Blood 07/31/2024 8:09 AM CDT 07/31/2024 9:17 AM CDT Logan Alexis MD LAB BLOOD ORDERABLES Final Result [facility] Department [place] [address] * Comprehensive metabolic panel (07/31/2024 8:09 AM CDT) Pathologist [facility] [place] Sodium 145 135 - 145 mmol/L Comment:Testing performed by : [facility], [address] [place] [address] Potassium, pl 4.3 3.3 - 4.9 mmol/L [facility] Chloride 109 97 - 110 mmol/L [facility] CO2 29 22 - 32 mmol/L [facility] Anion gap 7 2 - 15 mmol/L [facility] BUN 16 6 - 25 mg/dL [facility] Creatinine 1.03 0.80 - 1.30 mg/dL [facility] Glucose 115 70 - 199 mg/dL [facility] Comment: Interpretive Data Fasting glucose >/= 126 mg/dl is diagnostic for diabetes. Fasting is defined as no caloric intake for at least 8 hours. Fasting glucose between 100 mg/dl to 125 mg/dl is diagnostic of prediabetes. In a patient with classic symptoms of hyperglycemia or hyperglycemic crisis, a random glucose >/= 200 mg/dl is diagnostic for diabetes. In the absence of unequivocal hyperglycemia, results should be confirmed by repeat testing. The classification and Diagnosis of Diabetes Diabetes Care 2021; 46: S19-S40. Current interpretive data was last revised 2022. Calcium 8.9 8.5 - 10.3 mg/dL [facility] Bilirubin, total 0.2 0.1 - 1.2 mg/dL [facility] Comment:Repeated and verifie d. Protein, pl 6.5 6.5 - 8.5 g/dL [facility] Albumin 4.3 3.5 - 5.0 g/dL [facility] Alk phos 70 40 - 130 Units/L [facility] ALT 24 7 - 55 Units/L [facility] AST 22 10 - 50 Units/L [facility] Blood 07/31/2024 8:09 AM CDT 07/31/2024 8:09 AM CDT Judson Damon MD LAB BLOOD ORDER DYLON Final Result Performing Organization Address City/[facility] Co de Phone Number [facility] Department [place] [address] * Immunotyping, serum with interpretation (06/26/2024 8:26 AM CDT) Immunosubtraction Please see comment Comment: NO PARAPROTEIN DETECTED Reviewed and signed by Earl Robbins MD, PhD 06/29/2024 Blood 06/26/2024 8:26 AM CDT 06/26/2024 9:34 AM CDT Judson Damon MD LAB BLOOD ORDER DYLON Final Result Performing Organization Address City/[facility] de Phone Number [facility] Department [place] [address] * eGFR (06/26/2024 8:26 AM CDT) eGFR 82 >=60 mL/min/1. 73 m2 Comment: Interpretive Data Reference Interval Normal >/= 90 mL/min/1.73m2 Mildly decreased* 60 - 89 mL/min/1.73m2 Mildly to moderately decreased 45 - 59 mL/min/1.73m2 Moderately to severely decreased 30 - 44 mL/min/1.73m2 Severely decreased 15 - 29 mL/min/1.73m2 Kidney Failure < 15 mL/min/1.73m2 *Relative to young adult level Estimated glomerular filtration rate is determined by the 2020 CKD-EPI equation recommended by the National Kidney Foundation (A Unifying Approach to GFR Estimation: Recommendations of the NKF-ASK Task Force on Reassessing the Inclusion of Race in Diagnosing Kidney Disease, JASN 2020). The CKD-EPI equation should not be used for patients with unstable renal function and has not been validated in children and those over 70. Current interpretive data was last reviewed 2020. Blood 06/26/2024 8:26 AM CDT 06/26/2024 8:26 AM CDT Judson Damon MD LAB BLOOD ORDER DYLON Final Result [facility] Department [place] [address] * Differential, auto (06/26/2024 8:26 AM CDT) Neutrophil abs 2.49 1.50 - 6.50 K/cumm Comment:Testing performed by : [address] [address] Imm gran abs 0.01 0.00 - 0.10 K/cumm [facility] Lymphocyte abs 1.38 0.80 - 3.30 K/cumm [facility] Monocyte abs 0.45 0.20 - 0.80 K/cumm [facility] Eosinophil abs 0.17 0.00 - 0.50 K/cumm [facility] Basophil abs 0.04 0.00 - 0.10 K/cumm [facility] Neutrophil pct 54.9 % [facility] Comment: Interpretive Data Percent cell count reference ranges are not reported, since discordance with absolute values may lead to misinterpretation of CBC data. Current Interpretive Data was last revised on 2017. Imm gran pct 0.2 % [facility] Comment: Interpretive Data Percent cell count reference ranges are not reported, since discordance with absolute values may lead to misinterpretation of CBC data. Current Interpretive Data was last revised on 2017. Lymphocyte pct 30.4 % [facility] Comment: Interpretive Data Percent cell count reference ranges are not reported, since discordance with absolute values may lead to misinterpretation of CBC data. Current Interpretive Data was last revised on 2017. Monocyte pct 9.9 % [facility] Comment: Interpretive Data Percent cell count reference ranges are not reported, since discordance with absolute values may lead to misinterpretation of CBC data. Current Interpretive Data was last revised on 2017. Eosinophil pct 3.7 % [facility] Comment: Interpretive Data Percent cell count reference ranges are not reported, since discordance with absolute values may lead to misinterpretation of CBC data. Current Interpretive Data was last revised on 2017. Basophil pct 0.9 % [facility] Comment: Interpretive Data Percent cell count reference ranges are not reported, since discordance with absolute values may lead to misinterpretation of CBC data. Current Interpretive Data was last revised on 2017. Blood 06/26/2024 8:26 AM CDT 06/26/2024 8:26 AM CDT us Judson Damon MD LAB BLOOD ORDER DYLON Final Result [facility] Department [place] [address] * (ABNORMAL) Immunoglobulin free light chains (06/26/2024 8:26 AM CDT) [place]/Lambda ratio BJ 1.25 0.26 - 1.65 Comment: Interpretive Data The Binding Site FreeLite assay procedure was used. Results from different manufacturers or methods may not be comparable. Serial testing should be performed using the same methods and instrumentation. Current Interpretive Data was last revised on 2023. [place] free light chain BJ 0.45 0.33 - 1.94 mg/dL [facility] Comment: Interpretive Data The Binding Site FreeLite assay procedure was used. Results from different manufacturers or methods may not be comparable. Serial testing should be performed using the same methods and instrumentation. Current Interpretive Data was last revised on 2023. Lambda free light chain BJ 0.36(L) 0.57 - 2.63 mg/dL [facility] Comment: Interpretive Data The Binding Site FreeLite assay procedure was used. Results from different manufacturers or methods may not be comparable. Serial testing should be performed using the same methods and instrumentation. Current Interpretive Data was last revised on 2023. Blood 06/26/2024 8:26 AM CDT 06/26/2024 9:34 AM CDT Judson Damon MD LAB BLOOD ORDER DYLON Final Result [facility] Department [place] [address] * (ABNORMAL) CBC with auto differential (06/26/2024 8:26 AM CDT) [facility] WBC 4.54 3.80 - 9.90 K/cumm Comment:Testing performed by : [address] [address] Hgb 13.6 13.0 - 17.5 g/dL [facility] Comment:Testing performed by : [address] [address] Hct 40.6 38.9 - 50.3 % [facility] Comment:Testing performed by : [address] [address] Plt 154 150 - 400 K/cumm [facility] Comment:Testing performed by : [address] [address] MPV 9.3 9.1 - 12.3 fL [facility] RBC 3.86(L) 4.30 - 5.80 M/cumm [facility] MCV 105.2(H) 81.3 - 96.4 fL [facility] MCH 35.2(H) 27.1 - 33.3 pg [facility] MCHC 33.5 32.3 - 35.7 g/dL [facility] RDW CV 13.6 11.1 - 14.9 % [facility] RDW SD 53.1(H) 35.7 - 48.1 fL [facility] NRBC abs 0.00 0.00 - 0.01 K/cumm [facility] ANC Prelim 2.49 1.50 - 6.50 K/cumm [facility] Comment: Interpretive Data The rapid ANC is a preliminary automated count and may vary from the final ANC (Neut Abs) reported in the WBC differential that follows. Current interpretive data was last revised 2024. Blood 06/26/2024 8:26 AM CDT 06/26/2024 8:26 AM CDT Judson Damon MD LAB BLOOD ORDER DYLON Final Result Performing Organization Address City/[facility]/ZIP Co de Phone Number [facility] [place] [address] * Uric acid (06/26/2024 8:26 AM CDT) Pathologist [facility] [place] Uric acid 5.1 3.0 - 8.0 mg/dL Comment:Testing performed by : [address] [address] Blood 06/26/2024 8:26 AM CDT 06/26/2024 8:26 AM CDT Judson Damon MD LAB BLOOD ORDER DYLON Final Result Performing Organization Address [facility] de Phone Number [facility] [place] [address] * Protein electrophoresis with reflex, serum with interpretation (06/26/2024 8:26 AM CDT) Protein, sr 6.5 6.2 - 8.2 g/dL Albumin 4.1 3.2 - 5.0 g/dL [facility] Alpha-1 globulin 0.3 0.2 - 0.4 g/dL [facility] Alpha-2 globulin 0.8 0.5 - 1.0 g/dL [facility] Beta-1 globulin 0.4 0.3 - 0.6 g/dL [facility] Beta-2 globulin 0.3 0.2 - 0.6 g/dL [facility] Gamma globulin 0.6 0.5 - 1.7 g/dL [facility] SPEP interp Please see comment [facility] Comment: No apparent monoclonal peak Electrophoretic pattern appears similar to previous sample 05/03/2024 See immunotyping for further information Reviewed and signed by Earl Robbins MD, PhD 06/29/2024 Blood 06/26/2024 8:2 6 AM CDT 06/26/2024 9:34 AM CDT Judson Damon MD LAB BLOOD ORDER DYLON Final Result Performing Organization Address City/[facility] Co de Phone Number [facility] Department [place] [address] * Lactate dehydrogenase (LD) (06/26/2024 8:26 AM CDT) Lactate dehydrogenase (LDH) 210 100 - 250 Units/L Comment:Testing performed by : [facility], [address] [place] [address] Blood 06/26/2024 8:26 AM CDT 06/26/2024 8:26 AM CDT Judson Damon MD LAB BLOOD ORDER DYLON Final Result Performing Organization Address [facility] [place] [address] * (ABNORMAL) IgA (06/26/2024 8:26 AM CDT) Immunoglobulin A <50(L) 70 - 400 mg/dL Blood 06/26/2024 8:26 AM CDT 06/26/2024 9:34 AM CDT us Judson Damon MD LAB BLOOD ORDER DYLON Final Result Performing Organization Address City/[facility] [place] [address] * (ABNORMAL) IgM (06/26/2024 8:26 AM CDT) Immunoglobulin M <25(L) 40 - 230 mg/dL Blood 06/26/2024 8:26 AM CDT 06/26/2024 9:34 AM CDT Judson Damon MD LAB BLOOD ORDER DYLON Final Result Performing Organization Address City/[facility] Co de Phone Number [facility] [place] [address] * (ABNORMAL) IgG (06/26/2024 8:26 AM CDT) Pathologist [facility] [place] Immunoglobulin G 687(L) 700 - 1,600 mg/dL Blood 06/26/2024 8:26 AM CDT 06/26/2024 9:34 AM CDT Judson Damon MD LAB BLOOD ORDER DYLON Final Result Performing Organization Address [facility] de Phone Number [facility] [place] [address] * Comprehensive metabolic panel (06/26/2024 8:26 AM CDT) [facility] Sodium 143 135 - 145 mmol/L Comment:Testing performed by : [facility], [address] [place] [address] Potassium, pl 4.2 3.3 - 4.9 mmol/L [facility] Chloride 105 97 - 110 mmol/L [facility] CO2 31 22 - 32 mmol/L [facility] Anion gap 7 2 - 15 mmol/L [facility] BUN 18 6 - 25 mg/dL [facility] Creatinine 1.02 0.80 - 1.30 mg/dL [facility] Glucose 117 70 - 199 mg/dL [facility] Comment: Interpretive Data Fasting glucose >/= 126 mg/dl is diagnostic for diabetes. Fasting is defined as no caloric intake for at least 8 hours. Fasting glucose between 100 mg/dl to 125 mg/dl is diagnostic of prediabetes. In a patient with classic symptoms of hyperglycemia or hyperglycemic crisis, a random glucose >/= 200 mg/dl is diagnostic for diabetes. In the absence of unequivocal hyperglycemia, results should be confirmed by repeat testing. The classification and Diagnosis of Diabetes Diabetes Care 2021; 46: S19-S40. Current interpretive data was last revised 2022. Calcium 9.1 8.5 - 10.3 mg/dL [facility] Bilirubin, total 0.2 0.1 - 1.2 mg/dL [facility] Comment:Repeated and verifie d. Protein, pl 6.8 6.5 - 8.5 g/dL [facility] Albumin 4.2 3.5 - 5.0 g/dL [facility] Alk phos 62 40 - 130 Units/L [facility] ALT 36 7 - 55 Units/L [facility] AST 39 10 - 50 Units/L [facility] Blood 06/26/2024 8:26 AM CDT 06/26/2024 8:26 AM CDT Judson Damon MD LAB BLOOD ORDER DYLON Final Result [facility] Department [place] [address] * eGFR (05/29/2024 12:16 PM CDT) eGFR 84 >=60 mL/min/1. 73 m2 Comment: Interpretive Data Reference Interval Normal >/= 90 mL/min/1.73m2 Mildly decreased* 60 - 89 mL/min/1.73m2 Mildly to moderately decreased 45 - 59 mL/min/1.73m2 Moderately to severely decreased 30 - 44 mL/min/1.73m2 Severely decreased 15 - 29 mL/min/1.73m2 Kidney Failure < 15 mL/min/1.73m2 *Relative to young adult level Estimated glomerular filtration rate is determined by the 2020 CKD-EPI equation recommended by the National Kidney Foundation (A Unifying Approach to GFR Estimation: Recommendations of the NKF-ASK Task Force on Reassessing the Inclusion of Race in Diagnosing Kidney Disease, JASN 2020). The CKD-EPI equation should not be used for patients with unstable renal function and has not been validated in children and those over 70. Current interpretive data was last reviewed 2020. Blood 05/29/2024 12:1 6 PM CDT 05/29/2024 12:16 PM CDT Judson Damon MD LAB BLOOD ORDER DYLON Final Result [facility] Department [place] [address] * Differential, auto (05/29/2024 12:16 PM CDT) Neutrophil abs 1.95 1.50 - 6.50 K/cumm Comment:Testing performed by : [facility], [address] [place] [address] Imm gran abs 0.02 0.00 - 0.10 K/cumm [facility] Lymphocyte abs 1.73 0.80 - 3.30 K/cumm [facility] Monocyte abs 0.62 0.20 - 0.80 K/cumm [facility] Eosinophil abs 0.09 0.00 - 0.50 K/cumm [facility] Basophil abs 0.03 0.00 - 0.10 K/cumm [facility] Neutrophil pct 43.8 % [facility] Comment: Interpretive Data Percent cell count reference ranges are not reported, since discordance with absolute values may lead to misinterpretation of CBC data. Current Interpretive Data was last revised on 2017. Imm gran pct 0.5 % [facility] Comment: Interpretive Data Percent cell count reference ranges are not reported, since discordance with absolute values may lead to misinterpretation of CBC data. Current Interpretive Data was last revised on 2017. Lymphocyte pct 39.0 % [facility] Comment: Interpretive Data Percent cell count reference ranges are not reported, since discordance with absolute values may lead to misinterpretation of CBC data. Current Interpretive Data was last revised on 2017. Monocyte pct 14.0 % [facility] Comment: Interpretive Data Percent cell count reference ranges are not reported, since discordance with absolute values may lead to misinterpretation of CBC data. Current Interpretive Data was last revised on 2017. Eosinophil pct 2.0 % [facility] Comment: Interpretive Data Percent cell count reference ranges are not reported, since discordance with absolute values may lead to misinterpretation of CBC data. Current Interpretive Data was last revised on 2017. Basophil pct 0.7 % [facility] Comment: Interpretive Data Percent cell count reference ranges are not reported, since discordance with absolute values may lead to misinterpretation of CBC data. Current Interpretive Data was last revised on 2017. Blood 05/29/2024 12:1 6 PM CDT 05/29/2024 12:16 PM CDT Judson Damon MD LAB BLOOD ORDER DYLON Final Result [facility] Department [place] [address] * (ABNORMAL) CBC with auto differential (05/29/2024 12:16 PM CDT) WBC 4.44 3.80 - 9.90 K/cumm Comment:Testing performed by : [address] [address] Hgb 13.3 13.0 - 17.5 g/dL [facility] Comment:Testing performed by : [address] [address] Hct 40.0 38.9 - 50.3 % [facility] Comment:Testing performed by : [address] [address] Plt 160 150 - 400 K/cumm [facility] Comment:Testing performed by : [address] [address] MPV 9.5 9.1 - 12.3 fL [facility] RBC 3.76(L) 4.30 - 5.80 M/cumm [facility] MCV 106.4(H) 81.3 - 96.4 fL [facility] MCH 35.4(H) 27.1 - 33.3 pg [facility] MCHC 33.3 32.3 - 35.7 g/dL [facility] RDW CV 14.2 11.1 - 14.9 % [facility] RDW SD 56.3(H) 35.7 - 48.1 fL [facility] NRBC abs 0.00 0.00 - 0.01 K/cumm [facility] ANC Prelim 1.95 1.50 - 6.50 K/cumm [facility] Comment: Interpretive Data The rapid ANC is a preliminary automated count and may vary from the final ANC (Neut Abs) reported in the WBC differential that follows. Current interpretive data was last revised 2024. Blood 05/29/2024 12:1 6 PM CDT 05/29/2024 12:16 PM CDT Judson Damon MD LAB BLOOD ORDER DYLON Final Result Performing Organization Address City/[facility]/ZIP Co de Phone Number [facility] Department [place] [address] * Uric acid (05/29/2024 12:16 PM CDT) Pathologist [facility] Uric acid 5.0 3.0 - 8.0 mg/dL Comment:Testing performed by : [address] [address] Blood 05/29/2024 12:1 6 PM CDT 05/29/2024 12:16 PM CDT Judson Damon MD LAB BLOOD ORDER DYLON Final Result Performing Organization Address City/[facility]/ZIP Co de Phone Number [facility] Department [place] [address] * Comprehensive metabolic panel (05/29/2024 12:16 PM CDT) Sodium 139 135 - 145 mmol/L Comment:Testing performed by : [address] [place] [address] Potassium, pl 4.3 3.3 - 4.9 mmol/L [facility] Chloride 104 97 - 110 mmol/L [facility] CO2 30 22 - 32 mmol/L [facility] Anion gap 5 2 - 15 mmol/L [facility] BUN 16 6 - 25 mg/dL [facility] Creatinine 1.00 0.80 - 1.30 mg/dL [facility] Glucose 90 70 - 199 mg/dL [facility] Comment: Interpretive Data Fasting glucose >/= 126 mg/dl is diagnostic for diabetes. Fasting is defined as no caloric intake for at least 8 hours. Fasting glucose between 100 mg/dl to 125 mg/dl is diagnostic of prediabetes. In a patient with classic symptoms of hyperglycemia or hyperglycemic crisis, a random glucose >/= 200 mg/dl is diagnostic for diabetes. In the absence of unequivocal hyperglycemia, results should be confirmed by repeat testing. The classification and Diagnosis of Diabetes Diabetes Care 2021; 46: S19-S40. Current interpretive data was last revised 2022. Calcium 9.2 8.5 - 10.3 mg/dL [facility] Bilirubin, total 0.2 0.1 - 1.2 mg/dL [facility] Comment:Repeated and verifie d. Protein, pl 6.9 6.5 - 8.5 g/dL [facility] Albumin 4.3 3.5 - 5.0 g/dL [facility] Alk phos 62 40 - 130 Units/L [facility] ALT 24 7 - 55 Units/L [facility] AST 22 10 - 50 Units/L [facility] Blood 05/29/2024 12:1 6 PM CDT 05/29/2024 12:16 PM CDT us Judson Damon MD LAB BLOOD ORDER DYLON Final Result [facility] Department [place] [address] * PSA screen (01/20/2024 9:00 AM WIND UP WORKER) PSA-Total 1.38 <=5.40 ng/mL Comment: Interpretive Data AGE SEX REFERENCE INTERVAL 0 minutes-150 years Female None 0 minutes-49 years Male None 50-59 years Male 0-3.90 60-69 years Male 0-5.40 70-79 years Male 0-6.20 80-150 years Male 0-6.20 The [employer] PSA Total assay procedure was used. Results from different manufacturers or methods may not be comparable. Serial testing should be performed using the same method. Current interpretive data last revised 21. Blood 01/20/2024 9:00 AM WIND UP WORKER 01/20/2024 4:38 PM WIND UP WORKER Logan Alexis MD LAB BLOOD ORDERABLES Final Result Performing Organization Address [facility] Phone Number [facility] [address] [place] [address] * Hepatitis C antibody (01/29/2022 11:19 AM WIND UP WORKER) Hep C Ab Nonreactive Nonreactive [facility] Comment: Interpretive Data Nonreactive: Antibodies to HCV not detected. Does NOT exclude the possibility of recent exposure to HCV. Equivocal: Equivocal for HCV antibodies. Supplemental molecular testing will be automatically performed to determine infection status in accordance with current CDC screening recommendations. Reactive: Positive for HCV antibodies. This may represent current or past HCV infection. Supplemental molecular testing will be automatically performed to determine current infection status in accordance with current CDC screening recommendations. Interpretive data was last revised on 2019. Blood 01/29/2022 11:1 9 AM WIND UP WORKER 01/29/2022 3:29 PM WIND UP WORKER Logan Alexis MD LAB MICROBIOLOGY - GENERAL ORDERABLES Final Result Performing Organization Address [facility] Co de Phone Number [facility] [address] [address] [place], [place] [id number] * HM COLONOSCOPY (03/25/2019) Brandon Oro MD HEALTH MAINTENANCE Final Result from Last 3 Months or Most Recently Relevant to Health Maintenance Insurance MEDICARE [facility]IC[facility] [employer] Advance Directives For more information, please contact: [phone] * Full Code (Latest Code Status on File) Date Activated Date Inactivated Comments 11/15/2021 4:11 PM 11/19/2021 3:18 PM * Full Code Date Activated Date Inactivated Comments 03/10/2021 11:55 PM 03/21/2021 6:28 PM * Full Code Date Activated Date Inactivated Comments 02/26/2021 6:51 PM 03/10/2021 11:55 PM * Full Code Date Activated Date Inactivated Comments 01/23/2021 1:02 PM 01/23/2021 6:49 PM Care Teams Devops Developer Relationship Specialty Start Date End Date [place] [address] [place] [address] PCP - General Physician Manager Wellness 07/01/24 Judson Damon MD Consulting Physician Medical Oncology 09/26/20 Nasim Dunn MD Medical Oncologist/Auctioneer Art Medical Oncology 09/27/20 Abel Estrella MD Anesthesiologist Pain Management 12/24/20 Flora Arriaga MD Radiation Oncologist Radiation Oncology 01/27/21 Derek Rose MD [address] [place] [address] Referring Physician Gastroenterology 11/21/21
--- OUTSIDE RECORDS SUMMARY | 2024-08-20 01:24 | XMS_ITS | Clinical Summary ---
Author Organization [facility] 2 Address [address] [facility] [place] [address] Care Team Providers Care Department Mgr Name Role Phone Judson Damon MD Unavailable Nasim Dunn MD Unavailable Abel Estrella MD Unavailable [phone] Flora Arriaga MD Unavailable Derek Rose MD Unavailable + [facility] ov[facility] Allergies Active Allergy Reactions Criticality Noted Date Comments Oxycodone Nausea only Low 10/04/2020 Medications albuterol HFA (PROVENTIL HFA,VENTOLIN HFA,PROAIR HFA) 90 mcg/actuation inhaler Increase to 250 1 Active acetaminophen (TYLENOL) 325 mg tabletIndication s:premedication [...] s:Multiple myeloma not having achieved remission (HCC) TAKE 1 TABLET(400 MG) BY MOUTH EVERY [...] Inpatient Care CoordinationMM Overview Diagnosis MM Floor [address] to ICU 03/06 Treatment Plan Clinical Trial [...] Medical Assistants Post-Discharge Follow-Up Living Situation/Distance from [facility] Rishabh Barron local Caregiver Lab/Transfusion Frequency Phone: Fax: Venous Access & Care tunneled central venous catheter Local Oncologist Contact PCP listed Phone: Fax: Post-Discharge Office Visit (H30) SOMMER Montes 03/24 in [place] Miscellaneous Notes: Patient will need chest CT [...] 01/29/2023 Assessment & Plan (01/30/2024 9:13 AM MECHANICAL HANDYMAN): BMI Follow-up includes: nutrition counseling, exercise counseling, and education provided. Assessment & Plan (07/31/2023 8:42 AM CDT): BMI Follow-up includes: nutrition counseling, exercise counseling, education provided, and will consider Wegovy or Zepbound if covered . Assessment & Plan (02/02/2023 2:49 PM MECHANICAL HANDYMAN): BMI Follow-up includes: nutrition counseling, exercise counseling, [...] 03/09/2021 Assessment & Plan (03/10/2021 10:55 AM MECHANICAL HANDYMAN): Unclear etiology. Had been having diarrhea that has since stopped. -03/[address] with partial SBO -stopped imodium -diarrhea again 03/09 overnight -abdominal pain improved -resume scheduled and PRN morphine at 1/2 dose A-fib 03/06/2021 Assessment & Plan (03/10/2021 10:39 AM MECHANICAL HANDYMAN): New onset Afib on 03/06 with rates [...] 02/26/2021 Assessment & Plan (03/10/2021 10:56 AM MECHANICAL HANDYMAN): History of peripheral neuropathy in fingers and lower extremites. Followed by Dr. Estrella with pain management. Previously on gabapentin and pregabalin. -On pregabalin 50 mg qhs on floor -> resume Assessment & Plan (02/26/2021 9:03 PM MECHANICAL HANDYMAN): Possibly multifactorial Currently on no medications No acute complains Will monitor Depression 02/26/2021 Assessment & Plan (03/06/2021 3:37 AM MECHANICAL HANDYMAN): History of depression -Continue home mirtazapine Assessment & Plan (02/26/2021 9:08 PM MECHANICAL HANDYMAN): Currently normal affect and mood Continue home mirtazapine Encounter for person encountering health service s 02/22/2021 Autologous donor of stem cells 01/11/2021 Numbness 12/15/2020 Mid back pain 11/03/2020 Assessment & Plan (03/10/2021 10:56 AM MECHANICAL HANDYMAN): S/p palliative XRT: s/p RT 30 Gy/10 fx to L1-3 (09/22/2020-10/05/2020), 30 Gy/10 fx to the upper thoracic spine (09/29/2020-10/12/2020), and one dose XRT 03/02/21 -Contact rad onc for continuation of treatment after transplant -resume home pain meds at 02/12 dose: morphine ER 30 BID, Morphine 15 mg PRN Q6 with hypotension Assessment & Plan (02/26/2021 9:02 PM MECHANICAL HANDYMAN): S/p radiation palliative RT at [facility]: s/p RT 30 Gy/10 fx to L1-3 [...] 09/12 Cancer Staging:Clinical stage from 10/05/2020:RISS Stage III(Rcso-5-eluiootiokdsi (mg/L): 7.9, Albumin (g/dL): 2.4, ISS: Stage III, High-risk cytogenetics: Unknown, LDH: Elevated) - Signed by Judson Damon MD on 12/04/2020 Assessment & Plan (03/07/2021 4:04 PM MECHANICAL HANDYMAN): Dx 09/2020 with diffuse spinal disease s/p XRT, RVD x4 with AR. 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 Assessment & Plan (03/06/2021 3:42 AM MECHANICAL HANDYMAN): History of Asthma. -Continue Albuterol HFA prn and Breo Ellipta inhaler daily Assessment & Plan (02/26/2021 9:18 PM MECHANICAL HANDYMAN): Continue home regimen /Alternative base on hospital [...] 03/06/2021 Assessment & Plan (03/07/2021 4:02 PM MECHANICAL HANDYMAN): 2/2 shock vs other. Baseline Cr ~0.8. Acute increased in BUN/Cr. Cr 1.52 (0.86) with peak of Cr 1.52. Over last 24 hours, UOP ~410 cc -Trend BUN/Cr, UOP -Cr: 0.90 -UOP: 1447mL -Avoid nephrotoxins Sepsis 03/06/2021 03/10/2024 Assessment & Plan (03/09/2021 10:49 AM MECHANICAL HANDYMAN): Likely 2/2 sepsis related to unknown organism [...] 04/07/2024 Assessment & Plan (03/07/2021 4:03 PM MECHANICAL HANDYMAN): -goal Hgb > 7 Assessment & Plan (02/26/2021 8:00 PM MECHANICAL HANDYMAN): Monitor with daily CBC Transfusion base on BMT protocol Encounters Date Type Department Care Team Description 08/13/2024 10:30 AM CDT Telemedicine [facility] Pain Management [address] [facility] Advanced Medicine 14th [place] [address] [place] [address] Virgilio Ferrer, PharmD Neuropathy involving both lower extremities (Primary Dx) 08/13/2024 Telephone [facility] at [facility] [address] [facility] [address] [place] [address] Abel Estrella MD 07/31/2024 1:30 PM CDT Infusion [address] [address] Multiple myeloma in remission (HCC) 07/31/2024 8:30 AM CDT Infusion [address] [address] Hypogammaglobulinemia (Primary Dx); Multiple myeloma, remission status unspecified (HCC); Multiple myeloma not having achieved remission (HCC); Multiple myeloma in remission (HCC) 07/31/2024 8:00 AM CDT Lab [address] [place] [address] Multiple myeloma in remission (HCC); Hypertriglyceridemia; Other thrombophilia 07/28/2024 Telephone [facility] Scheduling [address] [place] [address] Nelida Rowe MD PhD Scheduling Appointments 07/27/2024 Orders Only [facility] Bone Marrow Transplant [address] [place] [phone] Kena Agrawal NP 07/22/2024 8:12 AM CDT - 07/22/2024 11:59 PM CDT Hospital Encounter [facility] Pain Center at the [facility] Advanced Medicine [address] [facility] Advanced [facility] [address] [place] [phone] Abel Estrella MD Rn, Merged With [facility] Pain Management Chemotherapy-induced peripheral neuropathy (Primary Dx) Discharge Disposition: Discharge to home or self care 07/20/2024 Telephone [facility] Pain Center at the [facility] Advanced Medicine [facility] [address] [place] [address] [address] Abel Estrella MD [facility] Preprocedure 07/01/2024 9:45 AM CDT Office Visit [facility] Sleep Medicine at [address] [address] Sarah Medina MD SRINIVAS (obstructive sleep apnea) (Primary Dx); Hypersomnia; Obesity, unspecified class, unspecified obesity type, unspecified whether serious comorbidity present 06/26/2024 12:00 PM CDT Infusion [address] [address] Multiple myeloma, remission status unspecified (HCC) 06/26/2024 9:30 AM CDT Infusion [address] [address] Hypogammaglobulinemia (Primary Dx); Multiple myeloma in remission (HCC); Multiple myeloma not having achieved remission (HCC) 06/26/2024 8:45 AM CDT Office Visit [facility] Bone Marrow Transplant [address] [place] [phone] Kena Agrawal NP Multiple myeloma, remission status unspecified (HCC) (Primary Dx); Multiple myeloma in remission (HCC) 06/26/2024 8:15 AM CDT Lab [address] [address] Multiple myeloma in remission (HCC); Multiple myeloma, remission status unspecified (HCC) 06/24/2024 7:30 AM CDT - 06/24/2024 11:59 PM CDT Hospital Encounter [facility] [address] [facility] [address] [place] [address] Abel Estrella MD Chemotherapy-induced neuropathy (Primary Dx); Bilateral foot pain; Multiple myeloma in remission (HCC) Discharge Disposition: Discharge to home or self care 06/02/2024 Orders Only [facility] Bone Marrow Transplant [address] [facility] Floor 6 [place] [address] Judson Delacruz MD 05/29/2024 1:00 PM CDT Infusion [address] [address] Neuropathy associated with multiple myeloma (HCC) 05/29/2024 12:30 PM CDT Infusion [address] [address] Multiple myeloma in remission (HCC) (Primary Dx); Hypogammaglobulinemia; Multiple myeloma not having achieved remission (HCC) 05/29/2024 12:00 PM CDT Lab [address] [address] Multiple myeloma in remission (HCC) 05/29/2024 10:30 AM CDT Office Visit [facility] Neuro Muscle [address] [facility] 6th [place] [address] [place] [address] Veronica Sharpe MD Cognitive decline (Primary Dx); Chemotherapy-induced neuropathy 05/29/2024 Orders Only [facility] Bone Marrow Transplant [address] [facility] Floor 6 [place] [address] Judson Delacruz MD 05/25/2024 12:41 PM CDT - 05/25/2024 11:59 PM CDT Hospital Encounter [facility] [address] [facility] [address] [place] [address] Princess Rivera MD PhD Chemotherapy-induced neuropathy (Primary Dx); Neuropathy associated with multiple myeloma (HCC) Discharge Disposition: Discharge to home or self care 05/25/2024 Orders Only [facility] Bone Marrow Transplant [address] [facility] Floor 6 [place] [address] Kena Agrawal NP 05/21/2024 11:00 AM CDT Telemedicine [facility] - Palliative Care [address] [facility] [place] [address] Tonia Nielson MD Palliative care encounter (Primary Dx); Idiopathic progressive neuropathy; Neuropathy associated with multiple myeloma (HCC); Brain fog; Other fatigue; History of palpitations; Polypharmacy from Last 3 Months Immunizations Immunization Administration Dates Next Due COVID-19 mRNA ([employer]) 0.3 m L (30 mcg) vaccine (12 [...] (Arexvy) 02/20/2023 Tdap 03/16/2022 ZOSTER Recombinant 10/13/2021,,02/11/2020,11/30 Surgical History Surgery Date Site/Laterality Comments COLONOSCOPY BLADDER SURGERY tumor removed TUNNELED LINE PLACEMENT > 5 YEARS 01/23/2021 N/A REMOVE TUNNELED LINE 03/14/2021 Left FL UPPER GI AIR CONTRAST W KUB 07/31/2021 Bilateral CATARACT EXTRACTION Bilateral Left April 2023 right may 2023 Medical History Medical History Date Comments Cataract Glaucoma Bladder tumor Asthma GERD (gastroesophageal reflux disease) Cancer (HCC) Multiple myeloma (HCC) A-fib (HCC) 03/06/2021 Allergic rhinitis Low back pain Anemia due to chemotherapy 11/04/2020 Family History Medical History Relation Name Comments Arthritis Father Cruz Poole Hypertension Father Cruz Poole Heart disease Mother Marsha Bridges Cancer Other Cancer Sister Alyssa Amador Relation Name Status Comments Father Cruz Poole Mother Marsha Bridges Other Sister Alyssa Amador Social History Tobacco Use Types Packs/Day Years [...] week 11/16/2021 How often do you attend [facility] or scientologist services? Never 11/16/2021 Do you belong to any clubs o r organizations such as amish groups, unions, fraternal or athletic groups, or [...] place to sleep or slept in a retirement (including now)? No 11/16/2021 Education Answer Date Recorded What is the highest level of school you have completed or the highest degree you have received? 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 on file Not on file Not on file Obstetrics History Last Filed Vital Signs Vital Sign Reading [...] 07/22/2024 8:19 AM CDT Plan of Treatment Health Maintenance Due Date Last Done Comments Well Visit 65+ 2024 Covid-19 Vaccine (8 - Pfizer risk season) 2024 01/11/2024, 02/20/2023, 11/23/2021, Additional history exists Influenza Vaccine (#1) 2024 , 10/31/2022, 11/21/2021, Additional history exists Fall Risk Assessment 11/12/2024 11/13/2023, 01/29/2023, 08/23/2022, Additional history exists Depression Screening 01/29/2025 01/30/2024, 07/31/2023, 01/29/2023, Additional history exists Prostate Cancer Screening-PSA 01/19/2026, 07/19/2023, 01/29/2022 Colon Cancer Screening-Colonoscopy 03/25/2029 03/25/2019 DTaP/Tdap/Td Vaccine (4 - Td or Tdap) 03/16/2032 03/16/2022, 10/13/2021, 08/18/2021 Colon Cancer Screening-CT Colonography Discontinued 03/25/2019 Colon Cancer Screening-DNA Stool Discontinued 03/25/19 20 Colon Cancer Screening-FIT Discontinued 03/25/2019 Colon Cancer Screening-Sigmoidoscopy Discontinued 03/25/2019 Zoster Vaccine Completed 10/13/2021, 0709/2021, 02/11/2020, Additional history exists Hepatitis C Screening Completed 01/29/2022 Hepatitis B Screening Completed 03/16/2022 , 10/13/2021, 08/18/2021 Pneumococcal vaccine 65+ Completed 024, 08/10/2022, 03/16/2022, Additional history exists Goals Goal Patient Goal Type Associated Problems Recent Progress Patient-Stated? Author [facility] Chronic Pain Care Plan Chronic Care Management Worsening( 8:21 AM CDT) No Sury Hodges RN Note: Problem: Chronic Pain Goals: 1. Minimize further functional decline 2. Maximize quality of life 3. Control pain Strategies: - Activity/exercise program recommendation - Conservative stepwise pain medicine strategy with multi-disciplinary approach - Recommend healthy lifestyle strategies and compensatory methods as needed [facility] Fall Prevention Care Plan Chronic Care Management Improving( 10:10 AM CDT) No Leigh Ann Doyle RN Note: Problem: Falls Goals: 1. Maintain strength and balance as able 2. Prevent falls and fractures 3. Maximize safety of living environment Strategies: - Educate on fall prevention and follow-up as needed - Recommend activity/exercise program - Refer to allied health as needed - Recommend healthy lifestyle strategies and compensatory methods as needed Medical Devices Implanted Type Area Agency Service Coordinator Device Identifier Shelf Expiration Date Model / Serial / Lot [employer] [id number] Vertaplex Hv Autoplex Without Needle Delivery System Kit Bone - [id number] - [id number] Implanted:Qty: 1 on 11/10/2020 by Abel Estrella MD at [facility] Bone [employer]ement [employer] 12/11/2021 [id number] / [id number] / [id number] [employer] [id number] Vertaplex Hv Autoplex Without Needle Delivery System Kit Bone - [id number] - [id number] Implanted:Qty: 1 on 11/10/2020 by Abel Estrella MD at [facility] Bone [employer] 11/10/2021 [id number] / [id number] / [id number] Bilateral Eye Implants Eye Procedures Procedure Name [...] (HCC) PSA SCREEN Routine 01/20/2024 9:00 AM MECHANICAL HANDYMAN Screening PSA (prostate specific antigen) HEPATITIS C ANTIBODY Routine 01/29/2022 11:19 AM MECHANICAL HANDYMAN Encounter for hepatitis C screening test for [...] MD LAB BLOOD ORDER DYLON Final Result [facility] Department [place] [address] * Differential, auto (07/31/2024 8:09 AM CDT) Neutrophil abs 1.61 1.50 - 6.50 K/cumm Comment:[facility] performed by : [facility] [address] [place] [id number] Imm gran abs 0.00 0.00 - 0.10 K/cumm [facility] Lymphocyte abs 1.49 0.80 - 3.30 K/cumm [facility] Monocyte abs 0.52 0.20 - 0.80 K/cumm [facility] Eosinophil abs 0.18 0.00 - 0.50 K/cumm [facility] Basophil abs 0.04 0.00 - 0.10 K/cumm [facility] Neutrophil pct 42.0 % [facility] Comment: Interpretive Data Percent cell count reference ranges are not reported, since discordance with absolute values may lead to misinterpretation of CBC data. Current Interpretive Data was last revised on 2017. Imm gran pct 0.0 % [facility] Comment: Interpretive Data Percent cell count reference ranges are not reported, since discordance with absolute values may lead to misinterpretation of CBC data. Current Interpretive Data was last revised on 2017. Lymphocyte pct 38.8 % [facility] Comment: Interpretive Data Percent cell count reference ranges are not reported, since discordance with absolute values may lead to misinterpretation of CBC data. Current Interpretive Data was last revised on 2017. Monocyte pct 13.5 % [facility] Comment: Interpretive Data Percent cell count reference ranges are not reported, since discordance with absolute values may lead to misinterpretation of CBC data. Current Interpretive Data was last revised on 2017. Eosinophil pct 4.7 % [facility] Comment: Interpretive Data Percent cell count reference ranges are not reported, since discordance with absolute values may lead to misinterpretation of CBC data. Current Interpretive Data was last revised on 2017. Basophil pct 1.0 % [facility] Comment: Interpretive Data Percent cell count reference ranges are not reported, since discordance with absolute values may lead to misinterpretation of CBC data. Current Interpretive Data was last revised on 2017. Blood 07/31/2024 8:09 AM CDT 07/31/2024 8:09 AM CDT Judson Damon MD LAB BLOOD ORDER DYLON Final Result [facility] Department [place] [address] * (ABNORMAL) CBC with auto differential (07/31/2024 8:09 AM CDT) [facility] WBC 3.84 3.80 - 9.90 K/cumm Comment:Testing performed by : [facility] [address] [place] [address] Hgb 12.4(L) 13.0 - 17.5 g/dL [facility] Comment:Testing performed by : [address] [address] Hct 37.3(L) 38.9 - 50.3 % [facility] Comment:Testing performed by : [facility] [address] [place] [address] Plt 160 150 - 400 K/cumm [facility] Comment:Testing performed by : [address] [address] MPV 9.1 9.1 - 12.3 fL [facility] RBC 3.48(L) 4.30 - 5.80 M/cumm [facility] MCV 107.2(H) 81.3 - 96.4 fL [facility] MCH 35.6(H) 27.1 - 33.3 pg [facility] MCHC 33.2 32.3 - 35.7 g/dL [facility] RDW CV 14.4 11.1 - 14.9 % [facility] RDW SD 56.8(H) 35.7 - 48.1 fL [facility] NRBC abs 0.00 0.00 - 0.01 K/cumm [facility] ANC Prelim 1.61 1.50 - 6.50 K/cumm [facility] Comment: Interpretive Data The rapid ANC is a preliminary automated count and may vary from the final ANC (Neut Abs) reported in the WBC differential that follows. Current interpretive data was last revised 2024. Blood 07/31/2024 8:09 AM CDT 07/31/2024 8:09 AM CDT us Judson Damon MD LAB BLOOD ORDER DYLON Final Result [facility] Department [place] [address] * Uric acid (07/31/2024 8:09 AM CDT) Uric acid 4.6 3.0 - 8.0 mg/dL Comment:Testing performed by : [facility] [address] [place] [id number] Blood 07/31/2024 8:09 AM CDT 07/31/2024 8:09 AM CDT Judson Damon MD LAB BLOOD ORDER DYLON [facility] [place] [address] * Lipid panel (07/31/2024 8:09 AM CDT) [...] on 2017. Triglycerides 61 <=149 mg/dL [facility] Comment: Interpretive Data Ages [...] 2017. LDL, calculated 40 <=129 mg/dL [facility] Comment: Interpretive Data Ages [...] 3. Josh Nguyễn et al. ZAC Cardiol. 2019June 11;5(5):540-548. doi: 10.1001/[email or web address] Current Interpretive Data was last revised on 2023. Non-HDL Cholesterol 54 mg/dL [facility] Comment: Interpretive Data Ages < or = [...] last revised on 2017. Chol/HDL ratio 2 [facility] Blood 07/31/2024 8:09 AM CDT 07/31/2024 9:17 AM CDT Logan Alexis MD LAB BLOOD ORDERABLES Final Result [facility] Department [place] [address] * Comprehensive metabolic panel (07/31/2024 8:09 AM CDT) Sodium 145 135 - 145 mmol/L Comment:Testing performed by : [facility] [address] [place] [id number] Potassium, pl 4.3 3.3 - 4.9 mmol/L [facility] Chloride 109 97 - 110 mmol/L [facility] CO2 29 22 - 32 mmol/L [facility] Anion gap 7 2 - 15 mmol/L [facility] BUN 16 6 - 25 mg/dL [facility] Creatinine 1.03 0.80 - 1.30 mg/dL [facility] Glucose 115 70 - 199 mg/dL [facility] Comment: Interpretive Data Fasting glucose >/= [...] 2022. Calcium 8.9 8.5 - 10.3 mg/dL [facility] Bilirubin, total 0.2 0.1 - 1.2 mg/dL [facility] Comment:Repeated and verifie d. Protein, pl 6.5 6.5 - 8.5 g/dL [facility] Albumin 4.3 3.5 - 5.0 g/dL [facility] Alk phos 70 40 - 130 Units/L [facility] ALT 24 7 - 55 Units/L [facility] AST 22 10 - 50 Units/L [facility] Blood 07/31/2024 8:09 AM CDT 07/31/2024 8:09 AM CDT Judson Damon MD LAB BLOOD ORDER DYLON Final Result Performing Organization Address City/[facility] Co de Phone Number [facility] Department [place] [address] * Immunotyping, serum with interpretation (06/26/2024 8:26 AM CDT) Immunosubtraction Please see comment Comment: NO PARAPROTEIN DETECTED Reviewed and signed by Earl Robbins MD, PhD 06/29/2024 Blood 06/26/2024 8:26 AM CDT 06/26/2024 9:34 AM CDT Judson Damon MD LAB BLOOD ORDER DYLON Final Result Performing Organization Address [facility] de Phone Number [facility] Department [place] [address] * eGFR (06/26/2024 8:26 AM CDT) eGFR [...] MD LAB BLOOD ORDER DYLON Final Result [facility] Department [place] [address] * Differential, auto (06/26/2024 8:26 AM CDT) Neutrophil abs 2.49 1.50 - 6.50 K/cumm Comment:Testing performed by : [facility] [address] [place] [id number] Imm gran abs 0.01 0.00 - 0.10 K/cumm [facility] Lymphocyte abs 1.38 0.80 - 3.30 K/cumm [facility] Monocyte abs 0.45 0.20 - 0.80 K/cumm [facility] Eosinophil abs 0.17 0.00 - 0.50 K/cumm [facility] Basophil abs 0.04 0.00 - 0.10 K/cumm [facility] Neutrophil pct 54.9 % [facility] Comment: Interpretive Data Percent cell count reference ranges are not reported, since discordance with absolute values may lead to misinterpretation of CBC data. Current Interpretive Data was last revised on 2017. Imm gran pct 0.2 % [facility] Comment: Interpretive Data Percent cell count reference ranges are not reported, since discordance with absolute values may lead to misinterpretation of CBC data. Current Interpretive Data was last revised on 2017. Lymphocyte pct 30.4 % [facility] Comment: Interpretive Data Percent cell count reference ranges are not reported, since discordance with absolute values may lead to misinterpretation of CBC data. Current Interpretive Data was last revised on 2017. Monocyte pct 9.9 % [facility] Comment: Interpretive Data Percent cell count reference ranges are not reported, since discordance with absolute values may lead to misinterpretation of CBC data. Current Interpretive Data was last revised on 2017. Eosinophil pct 3.7 % [facility] Comment: Interpretive Data Percent cell count reference ranges are not reported, since discordance with absolute values may lead to misinterpretation of CBC data. Current Interpretive Data was last revised on 2017. Basophil pct 0.9 % [facility] Comment: Interpretive Data Percent cell count reference ranges are not reported, since discordance with absolute values may lead to misinterpretation of CBC data. Current Interpretive Data was last revised on 2017. Blood 06/26/2024 8:26 AM CDT 06/26/2024 8:26 AM CDT Judson Damon MD LAB BLOOD ORDER DYLON Final Result [facility] Department [place] [address] * (ABNORMAL) Immunoglobulin free light chains (06/26/2024 8:26 AM CDT) Central Pacolet/Lambda ratio BJ 1.25 0.26 - 1.65 Comment: Interpretive Data The Binding Site FreeLite assay procedure was used. Results from different manufacturers or methods may not be comparable. Serial testing should be performed using the same methods and instrumentation. Current Interpretive Data was last revised on 2023. Central Pacolet free light chain BJ 0.45 0.33 - 1.94 mg/dL [facility] Comment: Interpretive Data The Binding Site FreeLite assay procedure was used. Results from different manufacturers or methods may not be comparable. Serial testing should be performed using the same methods and instrumentation. Current Interpretive Data was last revised on 2023. Lambda free light chain BJ 0.36(L) 0.57 - 2.63 mg/dL [facility] Comment: Interpretive Data The Binding Site FreeLite assay procedure was used. Results from different manufacturers or methods may not be comparable. Serial testing should be performed using the same methods and instrumentation. Current Interpretive Data was last revised on 2023. Blood 06/26/2024 8:26 AM CDT 06/26/2024 9:34 AM CDT Judson Damon MD LAB BLOOD ORDER DYLON Final Result [facility] Department [place] [address] * (ABNORMAL) CBC with auto differential (06/26/2024 8:26 AM CDT) WBC 4.54 3.80 - 9.90 K/cumm Comment:Testing performed by : [address] [address] Hgb 13.6 13.0 - 17.5 g/dL [facility] Comment:Testing performed by : [address] [address] Hct 40.6 38.9 - 50.3 % [facility] Comment:Testing performed by : [address] [address] Plt 154 150 - 400 K/cumm [facility] Comment:Testing performed by : [address] [address] MPV 9.3 9.1 - 12.3 fL [facility] RBC 3.86(L) 4.30 - 5.80 M/cumm [facility] MCV 105.2(H) 81.3 - 96.4 fL [facility] MCH 35.2(H) 27.1 - 33.3 pg [facility] MCHC 33.5 32.3 - 35.7 g/dL [facility] RDW CV 13.6 11.1 - 14.9 % [facility] RDW SD 53.1(H) 35.7 - 48.1 fL [facility] NRBC abs 0.00 0.00 - 0.01 K/cumm [facility] ANC Prelim 2.49 1.50 - 6.50 K/cumm [facility] Comment: Interpretive Data The rapid ANC is a preliminary automated count and may vary from the final ANC (Neut Abs) reported in the WBC differential that follows. Current interpretive data was last revised 2024. Blood 06/26/2024 8:26 AM CDT 06/26/2024 8:26 AM CDT Judson Damon MD LAB BLOOD ORDER DYLON Final Result Performing Organization Address [facility] Co de Phone Number [facility] [place] [address] * Uric acid (06/26/2024 8:26 AM CDT) Uric acid 5.1 3.0 - 8.0 mg/dL Comment:Testing performed by : [facility] [address] [place] [address] Blood 06/26/2024 8:26 AM CDT 06/26/2024 8:26 AM CDT Judson Damon MD LAB BLOOD ORDER DYLON Final Result Performing Organization Address [facility] Co de Phone Number [facility] [place] [address] * Protein electrophoresis with reflex, serum with interpretation (06/26/2024 8:26 AM CDT) Protein, sr 6.5 6.2 - 8.2 g/dL Albumin 4.1 3.2 - 5.0 g/dL [facility] Alpha-1 globulin 0.3 0.2 - 0.4 g/dL [facility] Alpha-2 globulin 0.8 0.5 - 1.0 g/dL [facility] Beta-1 globulin 0.4 0.3 - 0.6 g/dL [facility] Beta-2 globulin 0.3 0.2 - 0.6 g/dL [facility] Gamma globulin 0.6 0.5 - 1.7 g/dL [facility] SPEP interp Please see comment [facility] Comment: No apparent monoclonal peak Electrophoretic pattern appears similar to previous sample 05/03/2024 See immunotyping for further information Reviewed and signed by Earl Robbins MD, PhD 06/29/2024 Blood 06/26/2024 8:26 AM CDT 06/26/2024 9:34 AM CDT Judson Damon MD LAB BLOOD ORDER DYLON Final Result Performing Organization Address [facility]/ZIP Co de Phone Number [facility] Department [place] [address] * Lactate dehydrogenase (LD) (06/26/2024 8:26 AM CDT) Lactate dehydrogenase (LDH) 210 100 - 250 Units/L Comment:Testing performed by : [facility], [address] [place] [address] Blood 06/26/2024 8:26 AM CDT 06/26/2024 8:26 AM CDT Judson Damon MD LAB BLOOD ORDER DYLON Final Result Performing Organization Address [facility]/ZIP Co de Phone Number [facility] Department [place] [address] * (ABNORMAL) IgA (06/26/2024 8:26 AM CDT) Immunoglobulin A <50(L) 70 - 400 mg/dL Blood 06/26/2024 8:26 AM CDT 06/26/2024 9:34 AM CDT Judson Damon MD LAB BLOOD ORDER DYLON Final Result [facility] Department [place] [address] * (ABNORMAL) IgM (06/26/2024 8:26 AM CDT) [facility] Immunoglobulin M <25(L) 40 - 230 mg/dL Blood 06/26/2024 8:26 AM CDT 06/26/2024 9:34 AM CDT Judson Damon MD LAB BLOOD ORDER DYLON Final Result Performing Organization Address [facility]/ZIP Co de Phone Number [facility] [place] [address] * (ABNORMAL) IgG (06/26/2024 8:26 AM CDT) [facility] Immunoglobulin G 687(L) 700 - 1,600 mg/dL Blood 06/26/2024 8:26 AM CDT 06/26/2024 9:34 AM CDT Judson Damon MD LAB BLOOD ORDER DYLON Final Result Performing Organization Address [facility]/[place] [address] * Comprehensive metabolic panel (06/26/2024 8:26 AM CDT) [facility] Sodium 143 135 - 145 mmol/L Comment:Testing performed by : [facility], [address] [place] [address] Potassium, pl 4.2 3.3 - 4.9 mmol/L [facility] Chloride 105 97 - 110 mmol/L [facility] CO2 31 22 - 32 mmol/L [facility] Anion gap 7 2 - 15 mmol/L [facility] BUN 18 6 - 25 mg/dL [facility] Creatinine 1.02 0.80 - 1.30 mg/dL [facility] Glucose 117 70 - 199 mg/dL [facility] Comment: Interpretive Data Fasting glucose >/= [...] classification and Diagnosis of Diabetes Diabetes Care 202; 46: S19-S40. Current interpretive data was last revised 2022. Calcium 9.1 8.5 - 10.3 mg/dL [facility] Bilirubin, total 0.2 0.1 - 1.2 mg/dL [facility] Comment:Repeated and verifie d. Protein, pl 6.8 6.5 - 8.5 g/dL [facility] Albumin 4.2 3.5 - 5.0 g/dL [facility] Alk phos 62 40 - 130 Units/L [facility] ALT 36 7 - 55 Units/L [facility] AST 39 10 - 50 Units/L [facility] Blood 06/26/2024 8:26 AM CDT 06/26/2024 8:26 AM CDT Judson Damon MD LAB BLOOD ORDER DYLON Final Result [facility] [place] [address] * eGFR (05/29/2024 12:16 PM CDT) eGFR [...] MD LAB BLOOD ORDER DYLON Final Result [facility] [place] [address] * Differential, auto (05/29/2024 12:16 PM CDT) Neutrophil abs 1.95 1.50 - 6.50 K/cumm Comment:Testing performed by : [facility], [address] [place] [address] Imm gran abs 0.02 0.00 - 0.10 K/cumm [facility] Lymphocyte abs 1.73 0.80 - 3.30 K/cumm [facility] Monocyte abs 0.62 0.20 - 0.80 K/cumm [facility] Eosinophil abs 0.09 0.00 - 0.50 K/cumm [facility] Basophil abs 0.03 0.00 - 0.10 K/cumm [facility] Neutrophil pct 43.8 % [facility] Comment: Interpretive Data Percent cell count reference ranges are not reported, since discordance with absolute values may lead to misinterpretation of CBC data. Current Interpretive Data was last revised on 2017. Imm gran pct 0.5 % [facility] Comment: Interpretive Data Percent cell count reference ranges are not reported, since discordance with absolute values may lead to misinterpretation of CBC data. Current Interpretive Data was last revised on 2017. Lymphocyte pct 39.0 % [facility] Comment: Interpretive Data Percent cell count reference ranges are not reported, since discordance with absolute values may lead to misinterpretation of CBC data. Current Interpretive Data was last revised on 2017. Monocyte pct 14.0 % [facility] Comment: Interpretive Data Percent cell count reference ranges are not reported, since discordance with absolute values may lead to misinterpretation of CBC data. Current Interpretive Data was last revised on 2017. Eosinophil pct 2.0 % [facility] Comment: Interpretive Data Percent cell count reference ranges are not reported, since discordance with absolute values may lead to misinterpretation of CBC data. Current Interpretive Data was last revised on 2017. Basophil pct 0.7 % [facility] Comment: Interpretive Data Percent cell count reference ranges are not reported, since discordance with absolute values may lead to misinterpretation of CBC data. Current Interpretive Data was last revised on 2017. Blood 05/29/2024 12:1 6 PM CDT 05/29/2024 12:16 PM CDT Judson Damon MD LAB BLOOD ORDER DYLON Final Result [facility] Department [place] [address] * (ABNORMAL) CBC with auto differential (05/29/2024 12:16 PM CDT) WBC 4.44 3.80 - 9.90 K/cumm Comment:Testing performed by : [address] [address] Hgb 13.3 13.0 - 17.5 g/dL [facility] Comment:Testing performed by : [address] [address] Hct 40.0 38.9 - 50.3 % [facility] Comment:Testing performed by : [address] [address] Plt 160 150 - 400 K/cumm [facility] Comment:Testing performed by : [address] [address] MPV 9.5 9.1 - 12.3 fL [facility] RBC 3.76(L) 4.30 - 5.80 M/cumm [facility] MCV 106.4(H) 81.3 - 96.4 fL [facility] MCH 35.4(H) 27.1 - 33.3 pg [facility] MCHC 33.3 32.3 - 35.7 g/dL [facility] RDW CV 14.2 11.1 - 14.9 % [facility] RDW SD 56.3(H) 35.7 - 48.1 fL [facility] NRBC abs 0.00 0.00 - 0.01 K/cumm [facility] ANC Prelim 1.95 1.50 - 6.50 K/cumm [facility] Comment: Interpretive Data The rapid ANC is a preliminary automated count and may vary from the final ANC (Neut Abs) reported in the WBC differential that follows. Current interpretive data was last revised 2024. Blood 05/29/2024 12:1 6 PM CDT 05/29/2024 12:16 PM CDT Judson Damon MD LAB BLOOD ORDER DYLON Final Result Performing Organization Address [facility]/ZIP Co de Phone Number [facility] [place] [address] * Uric acid (05/29/2024 12:16 PM CDT) [facility] Uric acid 5.0 3.0 - 8.0 mg/dL Comment:Testing performed by : [facility], [address] [place] [address] Blood 05/29/2024 12:1 6 PM CDT 05/29/2024 12:16 PM CDT Judson Damon MD LAB BLOOD ORDER DYLON Final Result [facility] Department [place] [address] * Comprehensive metabolic panel (05/29/2024 12:16 PM CDT) Sodium 139 135 - 145 mmol/L Comment:Testing performed by : [facility], [address] [place] [address] Potassium, pl 4.3 3.3 - 4.9 mmol/L [facility] Chloride 104 97 - 110 mmol/L [facility] CO2 30 22 - 32 mmol/L [facility] Anion gap 5 2 - 15 mmol/L [facility] BUN 16 6 - 25 mg/dL [facility] Creatinine 1.00 0.80 - 1.30 mg/dL [facility] Glucose 90 70 - 199 mg/dL [facility] Comment: Interpretive Data Fasting glucose >/= [...] 2022. Calcium 9.2 8.5 - 10.3 mg/dL [facility] Bilirubin, total 0.2 0.1 - 1.2 mg/dL [facility] Comment:Repeated and verifie d. Protein, pl 6.9 6.5 - 8.5 g/dL [facility] Albumin 4.3 3.5 - 5.0 g/dL [facility] Alk phos 62 40 - 130 Units/L [facility] ALT 24 7 - 55 Units/L [facility] AST 22 10 - 50 Units/L [facility] Blood 05/29/2024 12:1 6 PM CDT 05/29/2024 12:16 PM CDT us Judson Damon MD LAB BLOOD ORDER DYLON Final Result [facility] [place] [address] * PSA screen (01/20/2024 9:00 AM MECHANICAL HANDYMAN) PSA-Total 1.38 <=5.40 ng/mL Comment: Interpretive Data [...] last revised 21. Blood 01/20/2024 9:00 AM MECHANICAL HANDYMAN 01/20/2024 4:38 PM MECHANICAL HANDYMAN Result [facility] Logan Alexis MD LAB BLOOD ORDERABLES Final Result Performing Organization Address [facility] Co de Phone Number [facility] [address] [address] [place] [address] * Hepatitis C antibody (01/29/2022 11:19 AM MECHANICAL HANDYMAN) Hep C Ab Nonreactive Nonreactive [facility] Comment: Interpretive Data Nonreactive: Antibodies to HCV [...] on 2019. Blood 01/29/2022 11:1 9 AM MECHANICAL HANDYMAN 01/29/2022 3:29 PM MECHANICAL HANDYMAN Logan Alexis MD LAB MICROBIOLOGY - GENERAL ORDERABLES Final Result Performing Organization Address City[facility] Co de Phone Number [facility] [address] [address] Department [place] [address] * HM COLONOSCOPY (03/25/2019) us Historical Provider HEALTH MAINTENANCE Final Result from Last 3 Months or Most Recently Relevant to Health Maintenance Insurance MEDICARE [facility] ACCESS CHOICE [employer] [facility] Advance Directives For more information, please contact: [phone] * Full Code (Latest Code Status on File) Date Activated Date Inactivated Comments 11/15/2021 4:11 PM 11/19/2021 3:18 PM * Full Code Date Activated Date Inactivated Comments 03/10/2021 11:55 PM 03/21/2021 6:28 PM * Full Code Date Activated Date Inactivated Comments 02/26/2021 6:51 PM 03/10/2021 11:55 PM * Full Code Date Activated Date Inactivated Comments 01/23/2021 1:02 PM 01/23/2021 6:49 PM Care Teams Department Mgr Relationship Specialty Start Date End Date WesleyTierra santiago EDGAR Ramirez [address] [place] [address] PCP - General Physician Christmas Tree Farm Manager 07/01/24 Judson Damon MD Consulting Physician Medical Oncology 09/26/20 Nasim Dunn MD Medical Oncologist/Commutator V Ring Assembler Medical Oncology 09/27/20 Abel Estrella MD Anesthesiologist Pain Management 12/24/20 Flora Arriaga MD Radiation Oncologist Radiation Oncology 01/27/21 Derek Rose MD [address] GASTROENTEROLOGY [place], [place] [id number] Referring Physician Gastroenterology 11/21/21
--- OUTSIDE RECORDS SUMMARY | 2024-08-20 01:24 | XMS_ITS | Encounter Summary ---
Author Organization [facility] Healthcare Address [address] [place] [address] Care Team Providers Care Receptionist Telephone Operator Name Role Phone Judson Damon MD Unavailable Nasim Dunn MD Unavailable [phone] Abel Estrella MD Unavailable [phone] Flora Arriaga MD Unavailable [phone] Derek Rose MD Unavailable + Tierra Terrazas Primary Care Pr ovider Encounter Details Date Type Department Care Team (Late st Contact Info) Description 08/13/2024 Telephone [facility] [address] [place] [address] Abel Estrella MD [address] [place] [address] Social History Tobacco Use Types Packs/Day Years Used Date Smoking Tobacco: Never Passive Smoke Exposure: Never Smokeless Tobacco: Never Alcohol Use Standard [...] 11/16/2021 How often do you attend chur ch or mosque services? Never 11/16/2021 Do you belong to any clubs o r organizations such as denominational groups, unions, fraternal or athletic groups, or [...] place to sleep or slept in a snf (including now)? No 11/16/2021 Education Answer Date Recorded What is the highest level of school you have completed or the highest degree you have received? 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 documented in this encounter Plan of Treatment Not on [...] lifestyle strategies and compensatory methods as needed [facility] Fall Prevention Care Plan Chronic Care Management Improving( 10:10 AM CDT) No Leigh Ann Doyle, RN Note: Problem: Falls Goals: 1. Maintain [...] Diagnoses Not on filedocumented in this encounter Care Teams Receptionist Telephone Operator Relationship Specialty Start Date End Date Tierra Terrazas PA [address] [place] [address] PCP - General Physician Quality Control Representative 07/01/24 Judson Damon MD Consulting Physician Medical Oncology 09/26/20 Nasim Dunn MD Medical Oncologist/Sports Activities Foul Judge Medical Oncology 09/27/20 Abel Estrella MD Anesthesiologist Pain Management 12/24/20 Flora Arriaga MD Radiation Oncologist Radiation Oncology 01/27/21 Derek Rose MD [address] [place] [address] Referring Physician Gastroenterology 11/21/21 documented as of this encounter
--- OUTSIDE RECORDS SUMMARY | 2024-08-20 01:24 | XMS_ITS | Encounter Summary ---
Author Organization [facility] Address [address] [place] [address] Phone Care Team Providers Care Horticultural Specialty Grower Name Role Phone Jamarcus Bennett MD Primary Care Provider [phone] Judson Damon MD Unavailable Nasim Dunn MD Unavailable [phone] Abel Esterlla MD Unavailable [phone] Flora Arriaga MD Unavailable Derek Rose MD Unavailable + Logan Alexis MD Primary Care Provider Unknown, Notinfile Primary Care Provider Unavail able Tirera Terrazas Primary Care Pr ovider Encounter Details Date Type Department Care Team (Latest Contact Info) Description 09/20/2020 Orders Only [place] [facility] Scanning, Provider Social History Tobacco Use Types Packs/Day Years Used Date Smoking Tobacco: Never Smokeless Tobacco: Never Alcohol Use Standard Drinks/Week Comments Yes 4 (1 standard drink = 0.6 oz pur e alcohol) Sex and Gender Information Value Date Recorded Sex Assigned at Not on file Legal Sex Male 11:03 AM MC KAY MACHINE OPERATOR Gender Identity Not on file Sexual Orientation Straight 10/02/2019 4: 02 PM CDT documented as of this encounter Plan of Treatment Not on file documented as of this encounter Procedures Procedure Name Priority Date/Time Associated Diagnosis Comments CARDIOLOGY DOCUMENT SCAN 09/20/2020 documented in this encounter Results * SCAN - CARDIOLOGY (09/20/2020) Anatomical Region Laterality Modality Other us Provider Scanning CV CARDIAC SERVICES PROCEDURES Final Result documented in this encounter Visit Diagnoses Not on filedocumented in this encounter Additional Health Concerns Infection Onset Date Last Indicated Resolved Time COVID: Suspected 03/05/2021 03/05/2021 03/06/2021 1:54 AM MC KAY MACHINE OPERATOR COVID: Suspected 11/15/2021 11/15/2021 11/15/2021 12:04 PM CDT COVID: Suspected 07/04/2022 07/04/2022 07/05/2022 3:05 AM CDT COVID: Suspected 10/03/2022 10/03/2022 10/03/2022 12:01 PM CDT COVID19 10/03/2022 10/03/2022 10/13/2022 3:05 AM CDT COVID: Recovered Comment:Added based on recent COVID infection. 10/13/2022 10/23/2022 01/11/2023 3:[address] documented as of this encounter Care Teams Horticultural Specialty Grower Relationship Specialty Start Date End Date Jamarcus Bennett MD [address] [place] [address] PCP - General Internal Medicine 04/21/18 11/24/21 Logan Alexis MD [address] [place] [address] PCP - General Family Medicine 11/25/21 04/30/24 Unknown, Notinfile PCP - General 05/01/24 06/30/24 Tierra Terrazas PA [address] [place] [address] PCP - General Physician Diamond Merchant 07/01/24 Judson Damon MD [address] [place] [address] Consulting Physician Medical Oncology 09/26/20 Nasim Dunn MD [address] [place] [address] Medical Oncologist/Industrial Property Appraiser Medical Oncology 09/27/20 Abel Estrella MD [address] [place] [address] Anesthesiologist Pain Management 12/24/20 Flora Arriaga MD [address] [place] [address] Radiation Oncologist Radiation Oncology 01/27/21 Derek Rose MD [address] [place] [address] Referring Physician Gastroenterology 11/21/21 documented as of this encounter
--- OUTSIDE RECORDS SUMMARY | 2024-08-20 01:24 | XMS_ITS | Patient Health Record ---
Author Organization 1 OF [facility] Address [address] [place] [address] Care Team Providers Care Time Piece Repairer Name Role Phone Logan Alexis MD Primary Care Provider Unavail [facility] [phone] Allergies Allergen (clinical drug ingredient) Drug/Non Drug Allergy documented on EMR Reaction Allergy Type Onset Date Status oxycodone Oxycodone Unknown Drug Allergy Active Reason For Referral No Information Medications Medication SIG (Take, Route, Fr equency, Duration) Notes Start Date End Date Status DULoxetine HCl Activ e Acyclovir Active Eliquis Active Rosuvastatin Calcium Active Advair Diskus Active Famotidine Active Darzalex Active Naltrexone Active Social History Tobacco Use: Social History Observation Description Date Details (start date - stop date) Never Smoker NA - NA Tobacco Control (Standard) Question Answer Notes Tobacco use: Nonsmoker Problems Problem Type SNOMED Code ICD Code Onset Dates Problem Status W/U Status Risk Notes Problem 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 Vital Signs Height 69 in 02/11/2024 Weight 245 lbs 02/11/2024 BMI 36.18 kg/m2 02/11/2024 Encounters Encounter Location Date Provider Diagnosis 1 OF [facility] [address] [place] [address] 02/11/2024 Bravo Dickerson Drug-induced polyneuropathy G62.0 ; Adverse effect of antineoplastic and immunosuppressive drugs, initial encounter T45.1X5A and Neuropathic pain M79.2 1 OF [facility] [address] [place] [address] 02/11/2024 Bravo Dickerson Assessments Encounter Date Diagnosis (ICD Code) Assessment Notes Treatment Notes Treatment Clinical Notes Section Notes 02/11/2024 Drug-induced polyneuropathy (ICD-10 - G62.0) 02/11/2024 Adverse effect of antineoplastic and immunosuppressive drugs, initial encounter (ICD-10 - T45.1X5A) 02/11/2024 Neuropathic pain (ICD-10 - M79.2) 02/11/2024 Other I did examine and evaluate the patient today. 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 We do offer a Qutenza treatment every 3 months however it is only covered for patients with diabetes and painful neuropathy. Right now we are going to be looking into how much this will cost [id number] and contact the patient to see if he wants to pursue this treatment in the near future. Plan Of Treatment No Information Insurance Providers Payer Name Payer Address Payer Phone Subscriber Number Group Number Insured Name Patient Relationship to Insured Coverage Start Date Coverage End Date [facility] [address] [place] [address] [id number] Jason Wayne Self - patient is the insured Medical (General) History Medical History History ICD Code asthma Cancer(multiple myeloma) Neuropathy of Feet afib high cholesterol
--- OUTSIDE RECORDS SUMMARY | 2024-08-20 01:25 | XMS_ITS | Encounter Summary ---
Author Organization [facility] Address [address] [place] [address] Care Team Providers Care Server Service Assistant Name Role Phone Judson Damon MD Unavailable Nasim Dunn MD Unavailable [phone] Abel Estrella MD Unavailable [phone] Flora Arriaga MD Unavailable [phone] Derek Rose MD Unavailable + Logan Alexis MD Primary Care Provider [phone] Unknown, Notinfile Primary Care Provider Unavail able [facility] Encounter Details Date Type Department Care Team (Late st Contact Info) Description 01/31/2023 Telephone [facility] [address] [facility] [address] [place] [address] Abel Estrella MD [address] [place] [address] Social History Tobacco Use Types Packs/Day Years [...] often do you attend chur ch or baptist services? Never 11/16/2021 Do you belong to any clubs o r organizations such as jainism groups, unions, fraternal or athletic groups, or school groups? No 11/16/2021 How often do you attend meet ings of the clubs or organizations you belong to? Never 11/16/2021 Are you , , di vorced, , never , or living with a partner? 11/16/2021 AUDIT-C Answer Date Recorded Q1: How often do you have a drink containing alc ohol? 2-4 times a month 01/29/2023 Q2: How many drinks containi ng alcohol do you have on a typical day when you are drinking? 3 or 4 01/29/2023 Q3: How often do you have si x or more drinks on one occasion? Never 01/29/2023 Overall Financial Resource Strain (CARDIA) Answe r Date Recorded How hard is it for you to pa y for the very basics like food, housing, medical care, and heating? Not hard at all 11/16/2021 PHQ-2 Answer Date Recorded PHQ-2 Total Score (If total score is 3 or more points, staff should administer the PHQ-9) 0 01/29/2023 Hunger Vital Sign Answer Date Recorded Within the past 12 months, y ou worried that your food would run out before you got the money to buy more. Never true 09/21/19 23 Within the past 12 months, t he food you bought just didn't last and you didn't have money to get more. Never true 09/20/2022 PRAPARE - Transportation Answer Date Re corded [...] place to sleep or slept in a nursing home (including now)? No 11/16/2021 Education Answer Date Recorded What is the highest level of school you have completed or the highest degree you have received? 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 Not on file Not on file documented as of this encounter Plan of [...] on filedocumented in this encounter Care Teams Server Service Assistant Relationship Specialty Start Date End Date Logan Alexis MD [address] [facility] [address] [place] [address] PCP - General Family Medicine 11/25/21 04/30/24 Unknown, Notinfile PCP - General 05/01/24 06/30/24 [facility] [address] [place] [address] PCP - General Physician Med Peds 07/01/24 Judson Damon MD Consulting Physician Medical Oncology 09/26/20 Nasim Dunn MD Medical Oncologist/Board Saw Runner Medical Oncology 09/27/20 Abel Estrella MD Anesthesiologist Pain Management 12/24/20 Flora Arriaga MD Radiation Oncologist Radiation Oncology 01/27/21 Derek Rose MD [address] [place] [address] Referring Physician Gastroenterology 11/21/21 documented as of this encounter
[2024-08-20 10:19] VITALS: BP 110/80; PULSE 69; RESP 14; TEMP 36.2; O2SAT 98
[2024-08-20] MEDS: LACTATED RINGERS 1,000 ML 150 ML IV CONT (10:31)
--- NOTE | 2024-08-20 11:04 | P.PNAN_ITS ---
Anes - Initial Pre Proc Eval Procedure: Operation Date: 08/20/24 11:30 Proposed Procedures p Screening Colonoscopy - Derek Puente MD Date/Time: 08/20/24 11:04 Surgeon: Derek Puente MD Pre Op Diagnosis: Hx of colon polyps Patient Data Age: 64 Gender: M Height: 1.75 m Weight: 104.8 kg Last Vital Signs Temp 97.1 F L 08/20/24 10:19 Pulse 69 08/20/24 10:19 Resp 14 08/20/24 10:19 BP 110/80 08/20/24 10:19 Pulse Ox 98 08/20/24 10:19 O2 Del Method Room Air 08/20/24 10:19 Allergies Allergy/AdvReac Type Severity Reaction Status Date / Time oxycodone AdvReac Mild Nausea and Verified 08/20/24 10:17 Vomiting Home Medications ?Medication ?Instructions ?Recorded ?Confirmed ?Type cyclobenzaprine 10 mg tablet 10 mg PO .HS PRN muscle spasm #30 08/02/20 08/07/24 Rx tabs acetaminophen 500 mg tablet 100 mg PO Q6H PRN Pain 08/11/20 08/07/24 History (Acetaminophen Extra Strength) hydrocodone 5 mg-acetaminophen 325 1 tablet PO Q12H PRN pain #10 tabs 08/12/20 0 08/07/24 Rx mg tablet testosterone 1.62 % (20.25 mg/1.25 1 packet transdermal HS #225 grams 08/19/20 08/20/24 Rx gram) transdermal gel packet (AndroGel) fluticasone 100 mcg-salmeterol 50 1 inh inhalation BID #60 ea 09/09/20 08/20/24 Rx mcg/dose blistr powdr for inhalation (Wixela Inhub) acyclovir 400 mg tablet 400 mg PO TID 08/07/24 08/20/24 History albuterol sulfate 90 mcg/actuation 2 inh inhalation Q4-6H PRN 08/07/24 08/07/24 History aerosol inhaler (ProAir HFA) shortness of breath or wheezing apixaban 5 mg tablet (Eliquis) 5 mg PO BID 08/07/24 08/20/24 History duloxetine 30 mg capsule,delayed 60 mg PO DAILY 08/07/24 08/20/24 History release fluticasone propionate 50 2 spray intranasal BID PRN allergy 08/07/24 08/07/24 History mcg/actuation nasal symptoms spray,suspension (Flonase Allergy Relief) levothyroxine 75 mcg tablet 75 mcg PO DAILY 08/07/24 08/20/24 History modafinil 100 mg tablet 100 mg PO DAILY 08/07/24 08/20/24 History rosuvastatin 20 mg tablet 20 mg PO DAILY 08/07/24 08/20/24 History tirzepatide (weight loss) 5 mg/0.5 5 mg subcut WEEKLY 08/07/24 08/07/24 History mL subcutaneous pen injector (Zepbound) Patient hx anesthesia problems: none Family hx anesthesia problems: none Results Review: All pre-operative results and documents have been reviewed as part of the pre- operative evaluation. [facility] Past Medical History Medical History Gastro-esophageal reflux disease without esophagitis Colon cancer screening Obesity (BMI 30-39.9) Malignant neoplasm of urinary bladder Unspecified asthma, uncomplicated Vitamin D deficiency, unspecified Family History Family History Father Hypertension Family history of osteoarthritis Grandparent Family history of osteoarthritis Family history of kidney disease Sibling Family history of malignant neoplasm of brain Mother Family history of heart disease in male family member before age 55 Patient's mother is Social History Social History Smoking status: Never smoker Second hand tobacco smoke exposure: No Alcohol intake: current Drinks per week: 3 Alcohol use details: beer Substance use: never Substance use type: does not use Living arrangements: with family Spiritual care concerns: No Anes - Eval Final PreProcedure Day of Procedure 08/20/24 11:04 Patient weight: obese Lungs: normal air movement Airway: Mallampati scale class II Neurological: alert and oriented Last oral intake: >/= 8 hours ASA classification: III Emergent: no Anesthetic plan: proceed Anesthesia type and monitoring: general GIVS and standard monitoring Results Review: All pre-operative results and documents have been reviewed as part of the pre- operative evaluation. Hyperlipidemia, hypothyroidism, SRINIVAS on CPAP, pt had hx of MM and stem cell transplant approx 2021 and doing well since. He exercises w elliptical, no cp or sob. Limited by neuropathy. Informed Consent: The patient's anesthetic plan and its attendant risks and benefits were discussed with the patient/family/POA. Questions were solicited and answers provided to the satisfaction of the patient/family/POA.
--- NOTE | 2024-08-20 11:19 | PM.HPGS ---
History of Present Illness History of Present Illness Consent: Risks, benefits, and alternatives have been discussed and questions answered. Patient agrees to proceed with procedure. Chief complaint: Hx of colon polyps Narrative: Jason Douglas is a 64 year old male with colon polyp 5 years ago Review of Systems Review of Systems: All systems reviewed & are unremarkable except as noted in HPI and below PMFSH Past Medical History Medical History (Updated 08/20/24 @ 11:19 by Derek Puente MD) Colon polyp Gastro-esophageal reflux disease without esophagitis Colon cancer screening Obesity (BMI 30-39.9) Malignant neoplasm of urinary bladder Unspecified asthma, uncomplicated Vitamin D deficiency, unspecified Family History Family History Father Hypertension Family history of osteoarthritis Grandparent Family history of osteoarthritis Family history of kidney disease Sibling Family history of malignant neoplasm of brain Mother Family history of heart disease in male family member before age 55 Patient's mother is Social History Social History Smoking status: Never smoker Second hand tobacco smoke exposure: No Alcohol intake: current Drinks per week: 3 Alcohol use details: beer Substance use: never Substance use type: does not use Living arrangements: with family Spiritual care concerns: No Meds Home Medications and Allergies Home Medications ?Medication ?Instructions ?Recorded ?Confirmed ?Type cyclobenzaprine 10 mg tablet 10 mg PO .HS PRN muscle spasm #30 08/02/20 08/07/24 Rx tabs acetaminophen 500 mg tablet 100 mg PO Q6H PRN Pain 08/11/20 08/07/24 History (Acetaminophen Extra Strength) hydrocodone 5 mg-acetaminophen 325 1 tablet PO Q12H PRN pain #10 tabs 08/12/20 08/07/24 Rx mg tablet testosterone 1.62 % (20.25 mg/1.25 1 packet transdermal HS #225 grams 08/19/20 08/20/24 Rx gram) transdermal gel packet (AndroGel) fluticasone 100 mcg-salmeterol 50 1 inh inhalation BID #60 ea 09/09/20 08/20/24 Rx mcg/dose blistr powdr for inhalation (Wixela Inhub) acyclovir 400 mg tablet 400 mg PO TID 08/07/24 08/20/24 History albuterol sulfate 90 mcg/actuation 2 inh inhalation Q4-6H PRN 08/07/24 08/07/24 History aerosol inhaler (ProAir HFA) shortness of breath or wheezing apixaban 5 mg tablet (Eliquis) 5 mg PO BID 08/07/24 08/20/24 History duloxetine 30 mg capsule,delayed 60 mg PO DAILY 08/07/24 08/20/24 History release fluticasone propionate 50 2 spray intranasal BID PRN allergy 08/07/24 08/07/24 History mcg/actuation nasal symptoms spray,suspension (Flonase Allergy Relief) levothyroxine 75 mcg tablet 75 mcg PO DAILY 08/07/24 08/20/24 History modafinil 100 mg tablet 100 mg PO DAILY 08/07/24 08/20/24 History rosuvastatin 20 mg tablet 20 mg PO DAILY 08/07/24 08/20/24 History tirzepatide (weight loss) 5 mg/0.5 5 mg subcut WEEKLY 08/07/24 08/07/24 History mL subcutaneous pen injector (Zepbound) Allergies Allergy/AdvReac Type Severity Reaction Status Date / Time oxycodone AdvReac Mild Nausea and Verified 08/20/24 10:17 Vomiting Vital Signs Vital Signs - 24 hr 08/20/24 10:19 Temperature 97.1 F L Pulse Rate 69 Respiratory Rate 14 Blood Pressure 110/80 Pulse Oximetry 98 Oxygen Delivery Room Air Exam Const: General: comfortable and no acute distress HENMT: Face/Nose/Sinus: Normal nares present Eyes: General: appearance normal, both eyes and all related structures Neck: Neck: no JVD Resp: Auscultation: clear to auscultation bilaterally Cardio: Rate: regular rate Rhythm: regular rhythm GI: Inspection: non-distended GI Palp: Yes Soft to palpation Skin: General skin exam: normal color Neuro: Speech: normal speech Extrem: General: normal to inspection Psych: Mental Status: mental status grossly normal Assessment and Plan Assessment and plan (1) Colon polyp: Code(s): K63.5 - Polyp of colon Status: Acute Assessment and Plan: colonoscopy
[2024-08-20 11:34] VITALS: BP 84/56; PULSE 73; RESP 13; O2SAT 94
[2024-08-20 11:44] VITALS: BP 110/68; PULSE 61; RESP 22; O2SAT 98
[2024-08-20 11:54] VITALS: BP 106/68; PULSE 60; RESP 18; O2SAT 98
== END 2024-08-20 12:08 | disposition home or self-care (01) ==
PROVIDERS: PCP Physician Assistant; Referring Provider Internal Medicine Gastroenterology; Visit Provider Internal Medicine Gastroenterology
PROC: 0DJD8ZZ Inspection of Lower Intestinal Tract, Via Natural or Artificial Opening Endoscopic (ICD-10-PCS; CPT 45378; principal; 2024-08-20 11:30)
DX: Z12.11 Encounter for screening for malignant neoplasm of colon (principal); E78.5 Hyperlipidemia, unspecified; E03.9 Hypothyroidism, unspecified; G47.33 Obstructive sleep apnea (adult) (pediatric); Z99.89 Dependence on other enabling machines and devices; J45.909 Unspecified asthma, uncomplicated; E55.9 Vitamin D deficiency, unspecified; K21.9 Gastro-esophageal reflux disease without esophagitis; Z79.891 Long term (current) use of opiate analgesic; Z79.51 Long term (current) use of inhaled steroids; Z79.01 Long term (current) use of anticoagulants; Z79.85 Long-term (current) use of injectable non-insulin antidiabetic drugs; Z98.890 Other specified postprocedural states; Z94.84 Stem cells transplant status; Z86.0100 Personal history of colon polyps, unspecified; Z85.51 Personal history of malignant neoplasm of bladder; Z80.8 Family history of malignant neoplasm of other organs or systems; Z82.49 Family history of ischemic heart disease and other diseases of the circulatory system
CPT/HCPCS: G0105; J2003; J2704; J7120